=== PATIENT | female | born 1995 | race African-American/Black ===

== ENCOUNTER → 2023-02-19 | Emergency (ER) | payer SELFPAY ==
[~2023-02-19] MED LIST: CEFTRIAXONE 500 MG/VIAL ONE; dexAMETHasone 10 MG/ML VIAL ONE
[2023-02-19 01:54] LABS: Hematocrit 34.2 % (36.0-45.0); Lymphocytes % 22.9 % (15.3-44.8); MCV 89.3 fL (80-100); MPV 8.1 fL (7.6-11.3); Platelets 360 thou/uL (152-406); RBC Red Blood Cell Count 3.83 M/uL (3.86-4.86)
[2023-02-19 01:58] LABS: Albumin 2.2 g/dL (3.4-5.0); Bilirubin Total 0.2 mg/dL (0.2-1.0); Potassium 4.1 mEq/L (3.5-5.1)
[2023-02-19 02:00] LABS: SARS-CoV-2 Antigen Rapid Res Negative (Negative)
--- NOTE | 2023-02-19 02:21 | EDPHYS ---
Physician Documentation [facility] Name: Sharad Velarde Age: 27 yrs Sex: Female : 1995 Arrival Date: 02/19/2023 Time: 00:46 Bed 15 Private MD: ED Physician Levi Henriquez HPI: 02/19 01:37 This 27 yrs old Black Female presents to ER via Ambulatory with complaints of Sore sp3 Throat, fatigue. 01:37 27-year-old female with history of hypertension, type 1 diabetes, asthma, prior anemia sp3 and recent strep throat infection approximately 10 days ago now presents to the ED with continued throat pain and generalized fatigue. She denies any other symptoms including shortness of breath, lower chest pain, abdominal pain, nausea, vomiting, diarrhea, fever, known sick contacts, or any other signs or symptoms on ROS at this time. Patient's PCP is in [place] which she flies back and sees routinely.. Historical: - Allergies: 01:31 Morphine; jb4 01:31 Motrin; jb4 - PMHx: 01:31 HTN; DM; Asthma; jb4 - PSHx: 01:31 ; jb4 - Immunization history:: Adult Immunizations up to date. - Social history:: Smoking status: Patient reports the use of cigarette tobacco products, Patient uses street drugs, marijuana. ROS: 01:38 Eyes: Negative for injury, pain, redness, and discharge, Neck: Negative for injury, sp3 pain, and swelling, Cardiovascular: Negative for chest pain, palpitations, and edema, Respiratory: Negative for shortness of breath, cough, wheezing, and pleuritic chest pain, Abdomen/GI: Negative for abdominal pain, nausea, vomiting, diarrhea, and constipation, Back: Negative for injury and pain, MS/Extremity: Negative for injury and deformity, Skin: Negative for injury, rash, and discoloration, Neuro: Negative for headache, weakness, numbness, tingling, and seizure, Psych: Negative for depression, anxiety, suicide ideation, homicidal ideation, and hallucinations, Allergy/Immunology: Negative for hives, rash, and allergies, Endocrine: Negative for neck swelling, polydipsia, polyuria, polyphagia, and marked weight changes, Hematologic/Lymphatic: Negative for swollen nodes, abnormal bleeding, and unusual bruising, 01:38 All other systems are negative, Exam: 01:39 Constitutional: This is a well developed, well nourished patient who is awake, alert, sp3 and in no acute distress. Head/Face: Normocephalic, atraumatic. Eyes: Pupils equal round and reactive to light, extra-ocular motions intact. Lids and lashes normal. Conjunctiva and sclera are non-icteric and not injected. Cornea within normal limits. Periorbital areas with no swelling, redness, or edema. ENT: Nares patent. No nasal discharge, no septal abnormalities noted. External auditory canals are clear. Oropharynx with no redness, swelling, or masses, exudates, or evidence of obstruction, uvula midline. Mucous membranes moist. Neck: Trachea midline, no thyromegaly or masses palpated, and no cervical lymphadenopathy. Supple, full range of motion without nuchal rigidity, or vertebral point tenderness. No Meningismus. Chest/axilla: Normal chest wall appearance and motion. Nontender with no deformity. No lesions are appreciated. Cardiovascular: Regular rate and rhythm with a normal S1 and S2. No gallops, murmurs, or rubs. Normal PMI, no JVD. No pulse deficits. Respiratory: Lungs have equal breath sounds bilaterally, clear to auscultation and percussion. No rales, rhonchi or wheezes noted. No increased work of breathing, no retractions or nasal flaring. Abdomen/GI: Soft, non-tender, with normal bowel sounds. No distension or tympany. No guarding or rebound. No evidence of tenderness throughout. Back: No spinal tenderness. No costovertebral tenderness. Full range of motion. Skin: Warm, dry with normal turgor. Normal color with no rashes, no lesions, and no evidence of cellulitis. MS/ Extremity: Pulses equal, no cyanosis. Neurovascular intact. Full, normal range of motion. Neuro: Awake and alert, GCS 15, oriented to person, place, time, and situation. Cranial nerves II-XII grossly intact. Motor strength 5/5 in all extremities. Sensory grossly intact. Cerebellar exam normal. Normal gait. Psych: Awake, alert, with orientation to person, place and time. Behavior, mood, and affect are within normal limits. Vital Signs: 01:29 BP 148 / 100; Pulse 106; Resp 16; Temp 98.6(TE); Pulse Ox 100% on R/A; Weight 65.77 kg jb4 (R); Height 5 ft. 5 in. (R); Pain 6/10; 01:35 BP 140 / 92; Pulse 106; Resp 19; Pulse Ox 100% on R/A; Pain 6/10; tm6 02:32 BP 137 / 96; Pulse 103; Resp 20; Pulse Ox 100% ; tm6 01:29 Body Mass Index 24.13 (65.77 kg, 165.1 cm) jb4 01:29 Pain Scale: Adult jb4 01:35 Pain Scale: Adult tm6 MDM: 01:10 Patient medically screened. sp3 01:39 Data reviewed: vital signs, nurses notes, lab test result(s), radiologic studies. ED sp3 course: 27-year-old female with recurrent sore throat and generalized fatigue. Differential diagnosis includes secondary infection, viral illness, anemia, among others. Patient is in no acute distress. Heart rate initially at triage was 106 but is in the 90s now. Will obtain laboratory values, swabs and chest x-ray. Disposition pending workup and patient course with probable discharge.. 02:20 ED course: Patient's strep screen is still positive. Patient is not anemic with sp3 hemoglobin at 11.5. Will administer Rocephin 500 mg IM and Decadron 10 mg IM and discharge patient home.. 02/19 01:00 Order name: Strep; Complete Time: 02:19 sp3 02/19 01:00 Order name: Flu; Complete Time: 02:19 sp3 02/19 01:00 Order name: SARS RAPID; Complete Time: 02:19 sp3 02/19 01:15 Order name: CBC with Diff; Complete Time: 02:19 sp3 02/19 01:15 Order name: CMP; Complete Time: 02:19 sp3 02/19 01:15 Order name: IV Saline Lock; Complete Time: sp3 02/19 01:15 Order name: Labs collected and sent; Complete Time: :33 sp3 Administered Medications: 02:47 Drug: Rocephin (cefTRIAXone) IM 500 mg IM once {Note: per MD, given IVP.} Route: IM; tm6 Site: Other; 02:47 Drug: Dexamethasone IM 10 mg IM once Route: IM; Site: left deltoid; tm6 Disposition Summary: 02/19/23 02:21 Discharge Ordered Notes: Location: Home sp3 Condition: Stable sp3 Diagnosis - Strep pharyngitis sp3 Followup: sp3 - With: Private Physician - When: Upon discharge from the Emergency Department - Reason: Recheck today's complaints, Continuance of care Discharge Instructions: - Discharge Summary Sheet sp3 - Strep Throat, Adult sp3 Forms: - Medication Reconciliation Form sp3 - Thank You Letter sp3 - Antibiotic Education sp3 - Prescription Opioid Use sp3 - Patient Portal Instructions sp3 - Leadership Thank You Letter sp3 - Work release form tm6 - Family Work Release tm6 Signatures: Dispatcher [employer] Adam Guzman RN RN jb4 Levi Henriquez MD MD sp3 Viktor Fabian RN RN tm6
--- NOTE | 2023-02-19 02:21 | ER ---
Nurse's Notes [facility] Name: Sharad Velarde Age: 27 yrs Sex: Female : 1995 Arrival Date: 02/19/2023 Time: 00:46 Bed 15 Private MD: Diagnosis: Strep pharyngitis Presentation: 02/19 01:29 Chief complaint: Patient states: I have been having a soar throat for the past 2 weeks jb4 and had strep 2 weeks ago. I have been feeling lethargic for the past 3 weeks. I have been told I am anemic. I am having chest pain in my left upper chest that is a 6/10. Coronavirus screen: At this time, the client does not indicate any symptoms associated with coronavirus-19. Ebola Screen: No symptoms or risks identified at this time. Initial Sepsis Screen: Does the patient meet any 2 criteria? HR > 90 bpm. Does the patient have a suspected source of infection? No. Patient's initial sepsis screen is negative. Risk Assessment: Do you want to hurt yourself or someone else? Patient reports no desire to harm self or others. Onset of symptoms was January 29, 2023. Transition of care: patient was not received from another setting of care. 01:29 Method Of Arrival: Ambulatory jb4 01:29 Acuity: PENNY 3 jb4 Historical: - Allergies: 01:31 Morphine; jb4 01:31 Motrin; jb4 - PMHx: 01:31 HTN; DM; Asthma; jb4 - PSHx: 01:31 ; jb4 - Immunization history:: Adult Immunizations up to date. - Social history:: Smoking status: Patient reports the use of cigarette tobacco products, Patient uses street drugs, marijuana. Screenin:38 [facility] ED Fall Risk Assessment (Adult) History of falling in the last 3 months, tm6 including since admission No falls in past 3 months (0 pts). Abuse screen: Denies threats or abuse. Denies injuries from another. Nutritional screening: No deficits noted. Tuberculosis screening: No symptoms or risk factors identified. Assessment: 01:35 General: Appears in no apparent distress. Behavior is calm, cooperative. Pain: tm6 Complains of pain in chest and neck Pain currently is 6 out of 10 on a pain scale. Quality of pain is described as sharp. Neuro: Level of Consciousness is awake, alert, obeys commands, Oriented to person, place, time, situation. Cardiovascular: Capillary refill < 3 seconds Patient's skin is warm and dry. Rhythm is sinus tachycardia. Respiratory: Airway is patent Respiratory effort is even, unlabored, Breath sounds are clear. GI: Abdomen is flat, non-distended. : No signs and/or symptoms were reported regarding the genitourinary system. EENT: Throat is reddened Reports sore throat. Derm: No signs and/or symptoms reported regarding the dermatologic system. Musculoskeletal: No signs and/or symptoms reported regarding the musculoskeletal system. 02:33 Reassessment: Patient appears in no apparent distress at this time. Patient and/or tm6 family updated on plan of care and expected duration. Pain level reassessed. Patient is alert, oriented x 3, equal unlabored respirations, skin warm/dry/pink. Vital Signs: 01:29 BP 148 / 100; Pulse 106; Resp 16; Temp 98.6(TE); Pulse Ox 100% on R/A; Weight 65.77 kg jb4 (R); Height 5 ft. 5 in. (R); Pain 6/10; 01:35 BP 140 / 92; Pulse 106; Resp 19; Pulse Ox 100% on R/A; Pain 6/10; tm6 02:32 BP 137 / 96; Pulse 103; Resp 20; Pulse Ox 100% ; tm6 01:29 Body Mass Index 24.13 (65.77 kg, 165.1 cm) jb4 01:29 Pain Scale: Adult jb4 01:35 Pain Scale: Adult tm6 Vitals: 02:32 Cardiac Rhythm Assessment. 6 ED Course: 00:57 Patient arrived in ED. gm2 01:00 Levi Henriquez MD is Attending Physician. sp3 01:20 Viktor Fabian, MANISHA is Primary Nurse. tm6 01:31 Triage completed. jb4 01:31 Arm band placed on right wrist. jb4 01:33 SARS RAPID Sent. tm6 01:33 Flu Sent. tm6 01:33 Strep Sent. tm6 01:35 No provider procedures requiring assistance completed. Inserted saline lock: 20 gauge tm6 in right antecubital area, using aseptic technique. 01:38 Patient has correct armband on for positive identification. Bed in low position. Call tm6 light in reach. Side rails up X 1. Provided Education on: plan of care. Client placed on continuous cardiac and pulse oximetry monitoring. NIBP monitoring applied. fiberglass quality technician on. Door closed. Noise minimized. Lights dimmed. Warm blanket given. 02:52 IV discontinued, intact, bleeding controlled, No redness/swelling at site. Pressure tm6 dressing applied. Administered Medications: 02:47 Drug: Rocephin (cefTRIAXone) IM 500 mg IM once {Note: per MD, given IVP.} Route: IM; tm6 Site: Other; 02:47 Drug: Dexamethasone IM 10 mg IM once Route: IM; Site: left deltoid; tm6 Medication: 01:35 VIS not applicable for this client. tm6 Outcome: 02:21 Discharge ordered by . sp3 02:51 Discharged to home ambulatory, tm6 02:51 Condition: stable 02:51 Discharge instructions given to patient, Instructed on discharge instructions, Demonstrated understanding of instructions, follow-up care, 02:52 Patient left the ED. tm6 Signatures: Adam Magdaleno, RN RN jb4 Levi Henriquez MD MD sp3 Mylene Marie 2 Viktor Fabian RN RN tm6
[2023-02-19 03:21] VITALS: BP 137/96; TEMP 98.6; O2SAT 100
== END ==
LOC: ER 00:46
DX: J02.0 Streptococcal pharyngitis (principal)
CPT/HCPCS: 36415; 80053; 85025; 87081; 87804; 87811; 96372; 99285; J1100

== ENCOUNTER → 2023-03-30 | Emergency (ER) | payer BC ==
[~2023-03-30] MED LIST changes: -CEFTRIAXONE 500 MG/VIAL ONE; +IBUPROFEN 400 MG TAB ONE; +PROMETHAZINE 25 MG TABLET ONE; -dexAMETHasone 10 MG/ML VIAL ONE; +methocarbamoL 750 MG TAB ONE
[2023-03-30 03:01] LABS: Specific Gravity 1.027 (1.005-1.030)
--- NOTE | 2023-03-30 04:50 | EDPHYS ---
Physician Documentation [facility] Name: Sharad Velarde Age: 27 yrs Sex: Female : 1995 Arrival Date: 03/30/2023 Time: 01:38 Bed 11 Private MD: ED Physician Pradeep Zapata HPI: 03/30 01:45 This 27 yrs old Black Female presents to ER via Unassigned with complaints of Knee sp4 Injury. 04:41 Patient states she has bilateral knee pain starting 2 years ago when she fell down in sp4 [place] during celebration. Patient reports there is sharp episodic pain bilateral knees left more than the right. Patient is here because her job made her come into the emergency room for evaluation. . 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 - Social history:: Smoking status: Patient denies any tobacco usage or history of. - Family history:: not pertinent. ROS: 04:41 Constitutional: Negative for fever, chills, and weight loss, positive bilateral knee sp4 pain 04:41 All other systems are negative, Exam: 04:41 Constitutional: This is a well developed, well nourished patient who is awake, alert, sp4 and in no acute distress. Head/Face: Normocephalic, atraumatic. Eyes: Pupils equal round and reactive to light, extra-ocular motions intact. Lids and lashes normal. Conjunctiva and sclera are not injected. Cornea within normal limits. Periorbital areas with no swelling, redness, or edema. ENT: Nares patent. No nasal discharge, no septal abnormalities noted. Tympanic membranes are normal and external auditory canals are clear. Oropharynx with no redness, swelling, or masses, exudates, or evidence of obstruction, uvula midline. Mucous membranes moist. Neck: Trachea midline, no thyromegaly or masses palpated, and no cervical lymphadenopathy. Supple, full range of motion without nuchal rigidity, or vertebral point tenderness. Chest/axilla: Normal chest wall appearance and motion. Nontender with no deformity. No lesions are appreciated. Cardiovascular: Regular rate and rhythm with a normal S1 and S2. No gallops, murmurs, or rubs. Normal PMI, no JVD. No pulse deficits. Respiratory: Lungs have equal breath sounds bilaterally, clear to auscultation and percussion. No rales, rhonchi or wheezes noted. No increased work of breathing, no retractions or nasal flaring. Abdomen/GI: Soft, non-tender, with normal bowel sounds. No distension or tympany. No guarding or rebound. No evidence of tenderness throughout. Back: No spinal tenderness. No costovertebral tenderness. Skin: Warm, dry with normal turgor. Normal color with no rashes, no lesions, and no evidence of cellulitis. MS/ Extremity: Pulses equal, no cyanosis. Neurovascular intact. Full, normal range of motion. Neuro: Awake and alert, GCS 15, oriented to person, place, time, and situation. Cranial nerves II-XII grossly intact. Motor strength 5/5 in all extremities. Sensory grossly intact. Psych: Awake, alert, with orientation to person, place and time. Behavior, mood, and affect are within normal limits Vital Signs: 02:12 BP 175 / 115; Pulse 96; Resp 17; Pulse Ox 100% ; Weight 65.77 kg; Height 5 ft. 5 in. ; vc1 02:12 Body Mass Index 24.13 (65.77 kg, 165.1 cm) vc1 Harpreet Coma Score: 04:41 Eye Response: spontaneous(4). Motor Response: obeys commands(6). Verbal Response: sp4 oriented(5). Total: 15. MDM: 02:15 Patient medically screened. 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 Bones: No areas of acute bony injuries were demonstrated. Soft tissues: No significant soft tissue swelling. Joints: There is no joint effusion. Others: There is a excrescent heterotopic bone lesion medial posterior aspect tibial plateau with questionable superficial lucency perhaps corresponding to a osteochondroma. No periosteal reaction were seen. IMPRESSION: No acute bony injuries were demonstrated. Excrescent heterotopic bone lesion medial posterior aspect tibial plateau with questionable superficial surrounding lucency perhaps corresponding to a osteochondroma. . ED course: EXAM: Knee Left 3 View XR Left Knee 3 Views HISTORY: bilateral knee pain COMPARISON: None. TECHNIQUE: Left Knee 3 Views FINDINGS: No fracture or dislocation. No significant sclerotic/lytic bone lesion. Joint spaces unremarkable. Soft tissues unremarkable. IMPRESSION: Normal Left Knee Radiographs. . 04:41 Differential Diagnosis Remote knee injury, sprain, strain . Data reviewed: vital signs, sp4 nurses notes, radiologic studies, plain films. ED course: On the right knee x-ray patient has excrescent heterotopic bone lesion on the posterior aspect of tibial plateau with superficial surrounding lucency, possible osteochondroma. Otherwise normal bilateral knee x-rays.. 04:47 ED course: Patient stable for discharge home with advice to do no running, practice sp4 walking only, low impact exercises, as needed knee brace. . 03/30 02:15 Order name: Test, Urine; Complete Time: 05:15 sp4 03/30 02:14 Order name: Knee Left 3 View XRAY sp4 03/30 02:15 Order name: Knee Right 3 View XRAY sp4 Administered Medications: 03:25 Drug: Ibuprofen PO 800 mg PO once Route: PO; vc1 03:25 Drug: Promethazine PO 25 mg PO once Route: PO; vc1 03:26 Drug: Methocarbamol PO 1500 mg PO once Route: PO; vc1 Disposition Summary: 03/30/23 04:49 Discharge Ordered Problem: new sp4 Symptoms: have improved sp4 Condition: Stable sp4 Diagnosis - Pain in right knee sp4 - Pain in left knee sp4 - Unspecified symptoms and signs involving the musculoskeletal system sp4 - exacerbation of chronic knee pain sp4 Followup: sp4 - With: Ramin Art MD - When: 7 - 10 days - Reason: Recheck today's complaints Discharge Instructions: - Discharge Summary Sheet sp4 - How to Use a Knee Brace sp4 Forms: - Work release form vc1 - Patient Portal Instructions sp4 Prescriptions: - naproxen 500 mg Oral tablet - take 1 tablet ORAL route every 12 hours as needed for pain; 30 tablet; Refills: sp4 0, Product Selection Permitted Signatures: Dispatcher [employer] Tamara Hebert RN RN vc1 Pradeep Zapata MD MD sp4
--- NOTE | 2023-03-30 04:50 | ER ---
Nurse's Notes [facility] Name: Sharad Velarde Age: 27 yrs Sex: Female : 1995 Arrival Date: 03/30/2023 Time: 01:38 Bed 11 Private MD: Diagnosis: Pain in right knee;Pain in left knee;Unspecified symptoms and signs involving the musculoskeletal system;exacerbation of chronic knee pain Presentation: 03/30 01:57 Note Registration stated she went to her car and said she would be back. vc1 02:11 Note Patient back from car. vc1 02:12 Chief complaint: Patient states: I fell about 2 years ago on my left knee. They said vc1 xray was negative but I probably needed an MRI. It was bothering me tonight at work so they told me to come check it out. It hurts and singh. Coronavirus screen: Vaccine status: Patient reports receiving the 2nd dose of the covid vaccine. Anthony' Client denies travel out of the [place] in the last 14 days. At this time, the client does not indicate any symptoms associated with coronavirus-19. Ebola Screen: Patient negative for fever greater than or equal to 101.5 degrees Fahrenheit, and additional compatible Ebola Virus Disease symptoms Patient denies exposure to infectious person. Patient denies travel to an Ebola-affected area in the 21 days before illness onset. No symptoms or risks identified at this time. Initial Sepsis Screen: Does the patient meet any 2 criteria? No. Patient's initial sepsis screen is negative. Does the patient have a suspected source of infection? No. Patient's initial sepsis screen is negative. Risk Assessment: Do you want to hurt yourself or someone else? Patient reports no desire to harm self or others. Onset of symptoms is unknown. 02:12 Method Of Arrival: Ambulatory vc1 02:12 Acuity: PENNY 4 vc1 Triage Assessment: 02:18 General: Appears in no apparent distress. comfortable, slender, Behavior is calm, vc1 cooperative, appropriate for age. Pain: Complains of pain in left knee Pain does not radiate. Quality of pain is described as burning, Pain began years ago. Alleviated by rest, Aggravated by weight bearing. EENT: No deficits noted. No signs and/or symptoms were reported regarding the EENT system. Neuro: No deficits noted. Cardiovascular: No deficits noted. Respiratory: Airway is patent Respiratory effort is even, unlabored, Respiratory pattern is regular, symmetrical. GI: No deficits noted. No signs and/or symptoms were reported involving the gastrointestinal system. : No deficits noted. No signs and/or symptoms were reported regarding the genitourinary system. Derm: No deficits noted. No signs and/or symptoms reported regarding the dermatologic system. Musculoskeletal: Reports pain in left knee. Injury Description: fall 2 years ago. 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 - Social history:: Smoking status: Patient denies any tobacco usage or history of. - Family history:: not pertinent. Screenin:25 [facility] ED Fall Risk Assessment (Adult) History of falling in the last 3 months, vc1 including since admission No falls in past 3 months (0 pts) Confusion or Disorientation No (0 pts) Intoxicated or Sedated No (0 pts) Impaired Gait No (0 pts) Mobility Assist Device Used No (0 pt). Abuse screen: Denies threats or abuse. Nutritional screening: No deficits noted. Tuberculosis screening: No symptoms or risk factors identified. Assessment: 02:00 General: See triage assessment. vc1 05:31 Reassessment: Patient and/or family updated on plan of care and expected duration. Pain vc1 level reassessed. Patient is alert, oriented x 3, equal unlabored respirations, skin warm/dry/pink. Patient states feeling better. Patient states symptoms have improved. Reassessment:. Vital Signs: 02:12 BP 175 / 115; Pulse 96; Resp 17; Pulse Ox 100% ; Weight 65.77 kg; Height 5 ft. 5 in. ; vc1 02:12 Body Mass Index 24.13 (65.77 kg, 165.1 cm) vc1 Harpreet Coma Score: 04:41 Eye Response: spontaneous(4). Motor Response: obeys commands(6). Verbal Response: sp4 oriented(5). Total: 15. ED Course: 01:41 Patient arrived in ED. jj6 01:45 Pradeep Zapata MD is Attending Physician. sp4 01:57 Patient's name was called from ER lobby. No response. vc1 02:15 Triage completed. vc1 02:26 Arm band placed on right wrist. vc1 02:31 Patient has correct armband on for positive identification. Bed in low position. Call vc1 light in reach. Pulse ox on. NIBP on. 02:37 Knee Left 3 View XRAY In Process Unspecified. EDMS 02:37 Knee Right 3 View XRAY In Process Unspecified. EDMS 04:48 Ramin Art MD is Referral Physician. sp4 05:31 No provider procedures requiring assistance completed. Patient did not have IV access vc1 during this emergency room visit. Administered Medications: 03:25 Drug: Ibuprofen PO 800 mg PO once Route: PO; vc1 03:25 Drug: Promethazine PO 25 mg PO once Route: PO; vc1 03:26 Drug: Methocarbamol PO 1500 mg PO once Route: PO; vc1 Medication: 02:26 VIS not applicable for this client. vc1 Outcome: 04:49 Discharge ordered by . sp4 05:34 Discharged to home ambulatory, vc1 05:34 Condition: good 05:34 Discharge instructions given to patient, Instructed on discharge instructions, follow up and referral plans. medication usage, Demonstrated understanding of instructions, follow-up care, medications, Prescriptions given X 1, 05:35 Patient left the ED. vc1 Signatures: Dispatcher [employer] EDMS Karen Tri jj6 Tamara Bush RN RN vc1 Pradeep Zapata MD MD sp4
--- NOTE | 2023-03-30 12:59 | RAD REPORT ---
EXAM DESCRIPTION: RAD - Knee Right 3 View - 03/30/2023 2:35 am CLINICAL HISTORY: 27 years, Female, Right and left knee pain COMPARISON: None FINDINGS: 3 X-ray views of the right knee (frontal lateral and oblique views) were performed. Bones: No areas of acute bony injuries were demonstrated. Soft tissues: No significant soft tissue swelling. Joints: There is no joint effusion. Others: There is a excrescent heterotopic bone lesion medial posterior aspect tibial plateau with que stionable superficial lucency perhaps corresponding to a osteochondroma. No periosteal reaction wer e seen. IMPRESSION: No acute bony injuries were demonstrated. Excrescent heterotopic bone lesion medial posterior aspect tibial plateau with questionable superfici al surrounding lucency perhaps corresponding to a osteochondroma. Electronically signed by: David Ponce MD 03/30/2023 03:10 AM BRUSH WORKER Due to temporary technical issues with the PACS/Fluency reporting system, reports are being signed by the in house radiologist without review as a courtesy to ensure prompt reporting. The interpreting r adiologist is fully responsible for the content of the report.
--- NOTE | 2023-03-30 13:00 | RAD REPORT ---
EXAM DESCRIPTION: RAD - Knee Left 3 View - 03/30/2023 2:35 am CLINICAL HISTORY: Bilateral knee pain COMPARISON: None. TECHNIQUE: Left Knee 3 Views FINDINGS: No fracture or dislocation. No significant sclerotic/lytic bone lesion. Joint spaces unremarkable. Soft tissues unremarkable. IMPRESSION: Normal Left Knee Radiographs. Electronically signed by: Brian Cruz MD 03/30/2023 02:59 AM DIGITAL MARKETING PROJECT MANAGER Due to temporary technical issues with the PACS/Fluency reporting system, reports are being signed by the in house radiologist without review as a courtesy to ensure prompt reporting. The interpreting r adiologist is fully responsible for the content of the report.
[2023-03-30 13:10] VITALS: BP 175/115; O2SAT 100
== END ==
LOC: ER 01:38
DX: M25.562 Pain in left knee (principal); M25.561 Pain in right knee; R29.91 Unspecified symptoms and signs involving the musculoskeletal system; E11.9 Type 2 diabetes mellitus without complications; I10 Essential (primary) hypertension; Z79.4 Long term (current) use of insulin; Z88.5 Allergy status to narcotic agent; Z88.6 Allergy status to analgesic agent
CPT/HCPCS: 81025; Q0169

== ENCOUNTER 2023-06-24 22:09 | Emergency (ER) | payer BC ==
[2023-06-24] MEDS ORDERED: NA CHLORIDE 0.9% 500 ML ONE (22:37)
[2023-06-24 23:03] LABS: Absolute Basophils 0.1 K/uL (0-0.5); Absolute Lymphocytes (CBC) 1.7 K/uL (0.7-4.9); Absolute Monocytes 0.2 K/uL (0.1-1.3); Absolute Neutrophil 3.5 K/uL (1.8-8.0); Basophils % 1.8 % (0-1.3); Eosinophils % 0.9 % (0-4.4); Hematocrit 37.8 % (36.0-45.0); MCH 29.9 pg (27.0-35.0); MCHC 34.4 g/dL (32.0-36.0); MPV 8.4 fL (7.6-11.3); Monocytes % 3.3 % (3.3-12.3); Nucleated Red Blood Cells % 0.1 % (0-0); Platelets 360 thou/uL (152-406); RBC Red Blood Cell Count 4.34 M/uL (3.86-4.86); Red Cell Distribution Width 12.7 % (12.1-15.2)
[2023-06-24 23:23] LABS: ALT/SGPT 16 U/L (13-56); AST/SGOT 7 U/L (15-37); Albumin 2.7 g/dL (3.4-5.0); Albumin/Globulin Ratio 0.6 (1.1-1.8); Alkaline Phosphatase 94 U/L (45-117); Anion Gap 7.7 mEq/L (5.0-15.0); BUN Blood Urea Nitrogen 19 mg/dL (7-18); Bicarbonate 27 mEq/L (21-32); Bilirubin Total 0.4 mg/dL (0.2-1.0); Globulin 4.3 g/dL (2.3-3.5); Glomerular Filtration Rate 60 ml/min (=/>90); Glucose Level 321 mg/dL (74-106); Potassium 3.7 mEq/L (3.5-5.1); Sodium Level 133 mEq/L (136-145)
[2023-06-24 23:28] LABS: Troponin High Sensitivity < 3.0 pg/mL (<58.9)
[2023-06-24 23:45] LABS: Specific Gravity > 1.030 (1.005-1.030); Sqamous Epithelial <5 /HPF (None Seen); Urine Bacteria None Seen /HPF (<20); Urine Bilirubin NEGATIVE (Negative); Urine Blood 3+ (Negative); Urine Clarity Clear (Clear); Urine Color Light-Yellow (Yellow); Urine Culture Reflex Order NOT NEEDED; Urine Glucose 4+ (Over) (Negative); Urine Ketones NEGATIVE (Negative); Urine Microscopic Reflex YN ORDER UMIC; Urine Mucus Slight /HPF (None Seen); Urine Nitrite NEGATIVE (Negative); Urine Protein 2+ (Negative); Urine RBC 21-50 /HPF (None Seen); Urine Urobilinogen Normal (Normal); Urine WBC <5 /HPF (<5)
[2023-06-25] MEDS ORDERED: AMLODIPINE 5 MG TAB ONE (00:23)
[2023-06-25] MEDS ORDERED: ASPIRIN 81 MG CHEWABLE TABLET ONE (00:23)
[2023-06-25] MEDS ORDERED: hydroCHLOROthiazide 25 MG TAB ONE (00:23)
--- NOTE | 2023-06-25 00:25 | ER ---
Nurse's Notes [facility] Name: Sharad Velarde Age: 27 yrs Sex: Female : 1995 Arrival Date: 06/24/2023 Time: 22:09 Bed 8 Private MD: Diagnosis: Essential (primary) hypertension;Type 2 diabetes mellitus with hyperglycemia Presentation: 06/23 22:25 Chief complaint: Patient states: Pt c/o headache and lightheadedness today. Pt states tl4 she is out of her HTN meds, last dose yesterday. Coronavirus screen: At this time, the client does not indicate any symptoms associated with coronavirus-19. Ebola Screen: No symptoms or risks identified at this time. Initial Sepsis Screen: Does the patient meet any 2 criteria? No. Patient's initial sepsis screen is negative. Does the patient have a suspected source of infection? No. Patient's initial sepsis screen is negative. Risk Assessment: Do you want to hurt yourself or someone else? Patient reports no desire to harm self or others. Onset of symptoms was June 24, 2023. 22:25 Method Of Arrival: Ambulatory tl4 22:25 Acuity: PENNY 3 tl4 Triage Assessment: 22:30 General: Appears in no apparent distress. Behavior is calm, cooperative. Pain: tl4 Complains of pain in head. EENT: No signs and/or symptoms were reported regarding the EENT system. Neuro: Level of Consciousness is awake, alert, obeys commands, Oriented to person, place, time, situation, Moves all extremities. Full function Gait is steady, Speech is normal, Reports dizziness, headache. Cardiovascular: Capillary refill < 3 seconds Patient's skin is warm and dry. Respiratory: Airway is patent Respiratory effort is even, unlabored, Respiratory pattern is regular, symmetrical. GI: No signs and/or symptoms were reported involving the gastrointestinal system. : No signs and/or symptoms were reported regarding the genitourinary system. Derm: No signs and/or symptoms reported regarding the dermatologic system. Musculoskeletal: No signs and/or symptoms reported regarding the musculoskeletal system. Historical: - Allergies: 22:29 Morphine (Anaphylaxis); tl4 22:29 Motrin (Hives); tl4 - Home Meds: 22:29 Novolog Sub-Q [Active]; Toujeo SoloStar U-300 Insulin subcutaneous [Active]; amlodipine tl4 5 mg tablet [Active]; lisinopril 10 mg Oral tablet [Active]; - PMHx: 22:29 Asthma; DM; Type 1; HTN; tl4 - PSHx: 22:29 ; tl4 - Immunization history:: Adult Immunizations unknown. - Infectious Disease History:: Denies. - Social history:: Smoking status: Patient denies any tobacco usage or history of. Screenin/27 00:17 [facility] ED Fall Risk Assessment (Adult) History of falling in the last 3 months, jb4 including since admission No falls in past 3 months (0 pts) Confusion or Disorientation No (0 pts) Intoxicated or Sedated No (0 pts) Impaired Gait No (0 pts) Mobility Assist Device Used No (0 pt) Altered Elimination No (0 pt) Score/Fall Risk Level 0 - 2 = Low Risk Oriented to surroundings, Maintained a safe environment. Abuse screen: Denies threats or abuse. Nutritional screening: No deficits noted. Tuberculosis screening: No symptoms or risk factors identified. Assessment: 06/23 23:00 General: Appears in no apparent distress. comfortable, Behavior is calm, cooperative, jb4 appropriate for age. Pain: Denies pain. Neuro: Level of Consciousness is awake, alert, obeys commands, Oriented to person, place, time, situation. Cardiovascular: Patient's skin is warm and dry. Respiratory: Airway is patent Respiratory effort is even, unlabored, Respiratory pattern is regular, symmetrical. GI: No signs and/or symptoms were reported involving the gastrointestinal system. : No signs and/or symptoms were reported regarding the genitourinary system. EENT: No signs and/or symptoms were reported regarding the EENT system. Derm: Skin is intact, Skin is pink, warm \T\ dry. Musculoskeletal: Circulation, motion, and sensation intact. Range of motion: intact in all extremities. 06/24 00:17 Reassessment: Patient appears in no apparent distress at this time. Patient and/or jb4 family updated on plan of care and expected duration. Pain level reassessed. Patient is alert, oriented x 3, equal unlabored respirations, skin warm/dry/pink. Vital Signs: 06/23 22:25 BP 166 / 96; Pulse 107; Resp 16; Temp 99(O); Pulse Ox 97% on R/A; Weight 70.76 kg; tl4 Height 5 ft. 5 in. ; Pain 6/10; 06/24 00:00 BP 162 / 104; Pulse 95; Resp 17; Pulse Ox 100% on R/A; jb4 06/23 22:25 Body Mass Index 25.96 (70.76 kg, 165.1 cm) tl4 06/23 22:25 Pain Scale: Adult tl4 ED Course: 06/23 22:11 Patient arrived in ED. im 22:15 Calvin Becerra MD is Attending Physician. tonia 22:29 Triage completed. tl4 22:31 Arm band placed on right wrist. tl4 22:35 Flash Beyer, MANISHA is Primary Nurse. rv 22:40 Patient has correct armband on for positive identification. Placed in gown. Bed in low tl4 position. Call light in reach. Side rails up X 1. Provided Education on: ED process. Client placed on continuous cardiac and pulse oximetry monitoring. NIBP monitoring applied. conveyor monitor on. Door closed. Noise minimized. Moved to private room. Warm blanket given. 22:45 Initial lab(s) drawn, by me, sent to lab. Inserted saline lock: 18 gauge in right jb4 antecubital area, using aseptic technique. Blood collected. 22:50 CBC with Diff Sent. jb4 22:50 Comprehensive Metabolic Panel Sent. jb4 22:50 Troponin High Sensitivity Sent. jb4 23:35 Urinalysis w/ reflexes Sent. jb4 23:35 PREGU Sent. jb4 06/24 00:17 Chest Single View XRAY In Process Unspecified. EDMS 00:43 No provider procedures requiring assistance completed. IV discontinued, intact, jb4 bleeding controlled, No redness/swelling at site. Pressure dressing applied. Administered Medications: 06/23 22:50 Drug: NS 0.9% IV 500 ml IV at bolus once Route: IV; Rate: bolus; Site: right jb4 antecubital; 06/24 00:28 Not Given (BGL 1588): insulin regular human5 units IVP once 4 00:28 Not Given (BGL 1588): insulin regular human5 units Sub-Q once jb4 00:28 Drug: Hydrochlorothiazide PO 12.5 mg PO once Route: PO; jb4 00:28 Drug: Norvasc PO 5 mg PO once Route: PO; jb4 00:28 Drug: Aspirin PO Chewable Tablet 81 mg PO once Route: PO; jb4 Medication: 00:17 VIS not applicable for this client. jb4 Outcome: 00:24 Discharge ordered by . tonia 00:43 Discharged to home ambulatory, jb4 00:43 Condition: stable 00:43 Discharge instructions given to patient, Instructed on discharge instructions, follow up and referral plans. medication usage, Demonstrated understanding of instructions, follow-up care, medications, Prescriptions given X 4, 00:43 Patient left the ED. jb4 Signatures: Dispatcher [employer] EDMS Calvin Becerra MD MD cha Bryson, James RN RN jb4 Flash Beyer RN RN Jennyfer Harrell Toni RN RN tl4
--- NOTE | 2023-06-25 00:25 | EDPHYS ---
Physician Documentation [facility] Name: Sharad Velrade Age: 27 yrs Sex: Female : 1995 Arrival Date: 06/24/2023 Time: 22:09 Bed 8 Private MD: YAKOV Physician Calvin Beecrra HPI: 06/24 00:09 This 27 yrs old Black Female presents to ER via Ambulatory with complaints of High tonia Blood Pressure. 00:09 The patient has elevated blood pressure and discovered this at home. Onset: The tonia symptoms/episode began/occurred 2 day(s) ago. Modifying factors: The symptoms are aggravated by activity, The symptoms are alleviated by remaining still. Historical: - Allergies: 06/23 22:29 Morphine (Anaphylaxis); tl4 22:29 Motrin (Hives); tl4 - Home Meds: 22:29 Novolog Sub-Q [Active]; Toujeo SoloStar U-300 Insulin subcutaneous [Active]; amlodipine tl4 5 mg tablet [Active]; lisinopril 10 mg Oral tablet [Active]; - PMHx: 22:29 Asthma; DM; Type 1; HTN; tl4 - PSHx: 22:29 ; tl4 - Immunization history:: Adult Immunizations unknown. - Infectious Disease History:: Denies. - Social history:: Smoking status: Patient denies any tobacco usage or history of. ROS: 06/24 00:14 Constitutional: Negative for fever, chills, and weight loss, Eyes: Negative for injury, tonia pain, redness, and discharge, ENT: Negative for injury, pain, and discharge, Neck: Negative for injury, pain, and swelling, Respiratory: Negative for shortness of breath, cough, wheezing, and pleuritic chest pain, Abdomen/GI: Negative for abdominal pain, nausea, vomiting, diarrhea, and constipation, Back: Negative for injury and pain, : Negative for injury, bleeding, discharge, and swelling, MS/Extremity: Negative for injury and deformity, Skin: Negative for injury, rash, and discoloration, Neuro: Negative for headache, weakness, numbness, tingling, and seizure, Psych: Negative for depression, anxiety, suicide ideation, homicidal ideation, and hallucinations, Allergy/Immunology: Negative for hives, rash, and allergies, Endocrine: Negative for neck swelling, polydipsia, polyuria, polyphagia, and marked weight changes, Hematologic/Lymphatic: Negative for swollen nodes, abnormal bleeding, and unusual bruising, Cardiovascular: Positive for chest pain, palpitations, Exam: 00:14 Constitutional: This is a well developed, well nourished patient who is awake, alert, tonia and in no acute distress. Head/Face: Normocephalic, atraumatic. Eyes: Pupils equal round and reactive to light, extra-ocular motions intact. Lids and lashes normal. Conjunctiva and sclera are non-icteric and not injected. Cornea within normal limits. Periorbital areas with no swelling, redness, or edema. ENT: Nares patent. No nasal discharge, no septal abnormalities noted. Tympanic membranes are normal and external auditory canals are clear. Oropharynx with no redness, swelling, or masses, exudates, or evidence of obstruction, uvula midline. Mucous membranes moist. Neck: Trachea midline, no thyromegaly or masses palpated, and no cervical lymphadenopathy. Supple, full range of motion without nuchal rigidity, or vertebral point tenderness. No Meningismus. Chest/axilla: Normal chest wall appearance and motion. Nontender with no deformity. No lesions are appreciated. Cardiovascular: Regular rate and rhythm with a normal S1 and S2. No gallops, murmurs, or rubs. Normal PMI, no JVD. No pulse deficits. Respiratory: Lungs have equal breath sounds bilaterally, clear to auscultation and percussion. No rales, rhonchi or wheezes noted. No increased work of breathing, no retractions or nasal flaring. Abdomen/GI: Soft, non-tender, with normal bowel sounds. No distension or tympany. No guarding or rebound. No evidence of tenderness throughout. Back: No spinal tenderness. No costovertebral tenderness. Full range of motion. Pelvic Exam: Normal external genitalia. Speculum exam with closed cervical os, no discharge or bleeding noted. Bimanual exam with normal adnexa, no adnexal or cervical motion tenderness. Normal uterus. Skin: Warm, dry with normal turgor. Normal color with no rashes, no lesions, and no evidence of cellulitis. MS/ Extremity: Pulses equal, no cyanosis. Neurovascular intact. Full, normal range of motion. Neuro: Awake and alert, GCS 15, oriented to person, place, time, and situation. Cranial nerves II-XII grossly intact. Motor strength 5/5 in all extremities. Sensory grossly intact. Cerebellar exam normal. Normal gait. Psych: Awake, alert, with orientation to person, place and time. Behavior, mood, and affect are within normal limits. 00:14 ECG was reviewed by the Attending Physician. 00:23 Musculoskeletal/extremity: DVT Exam: No signs of deep vein thrombosis. no pain, no tonia swelling, no tenderness, negative Homans' sign noted on exam, no appreciated bluish discoloration, no erythema, no increased warmth, Vital Signs: 06/23 22:25 BP 166 / 96; Pulse 107; Resp 16; Temp 99(O); Pulse Ox 97% on R/A; Weight 70.76 kg; tl4 Height 5 ft. 5 in. ; Pain 6/10; 06/24 00:00 BP 162 / 104; Pulse 95; Resp 17; Pulse Ox 100% on R/A; jb4 06/23 22:25 Body Mass Index 25.96 (70.76 kg, 165.1 cm) tl4 06/23 22:25 Pain Scale: Adult tl4 MDM: 06/23 22:39 Patient medically screened. [facility] 06/24 00:15 Differential diagnosis: hypertensive crisis, Malignant HTN. Data reviewed: vital signs, [facility] nurses notes, lab test result(s), EKG, radiologic studies, plain films. Consideration of Admission/Observation Escalation of care including admission/observation considered. I considered the following discharge prescriptions or medication management in the emergency department Medications were administered in the Emergency Department. See MAR. Independent interpretation of the following test(s) in the Emergency Department EKG: See my EKG interpretation above. Test considered but Not performed: CT: no ct head. Historians other than the Patient: pt well informed. Care significantly affected by the following chronic conditions: Diabetes, Hypertension, asthma. Counseling: I had a detailed discussion with the patient and/or guardian regarding the historical points, exam findings, and any diagnostic results supporting the discharge/admit diagnosis, the presence of at least one elevated blood pressure reading (>120/80) during this emergency department visit, lab results. 06/23 22:19 Order name: CBC with Diff; Complete Time: 00:00 [facility] 06/23 22:19 Order name: Comprehensive Metabolic Panel; Complete Time: 00:00 [facility] 06/23 22:19 Order name: Troponin High Sensitivity; Complete Time: 00:00 [facility] 06/23 22:19 Order name: Urinalysis w/ reflexes; Complete Time: 00:00 [facility] 06/23 22:19 Order name: PREGU; Complete Time: 00:00 [facility] 06/24 00:34 Order name: Glucose, Ancillary Testing EDMS 06/24 00:03 Order name: Chest Single View XRAY [facility] 06/23 22:19 Order name: EKG - Nurse/Tech; Complete Time: 22:49 [facility] EC:14 Rate is 99 beats/min. Rhythm is regular. QRS [place] is Normal. MI interval is normal. QRS tonia interval is normal. QT interval is normal. No Q waves. T waves are Normal. No ST changes noted. Clinical impression: NSR w/ Non-specific ST/T Changes and No evidence of ischemia. Interpreted by me. Reviewed by me. Administered Medications: 06/23 22:50 Drug: NS 0.9% IV 500 ml IV at bolus once Route: IV; Rate: bolus; Site: right jb4 antecubital; 06/24 00:28 Not Given (BGL 1588): insulin regular human5 units IVP once jb4 00:28 Not Given (BGL 1588): insulin regular human5 units Sub-Q once 4 00:28 Drug: Hydrochlorothiazide PO 12.5 mg PO once Route: PO; jb4 00:28 Drug: Norvasc PO 5 mg PO once Route: PO; jb4 00:28 Drug: Aspirin PO Chewable Tablet 81 mg PO once Route: PO; jb4 Disposition Summary: 06/25/23 00:24 Discharge Ordered Notes: Location: Home tonia Problem: new tonia Symptoms: have improved tonia Condition: Stable tonia Diagnosis - Essential (primary) hypertension tonia - Type 2 diabetes mellitus with hyperglycemia tonia Followup: tonia - With: Private Physician - When: 2 - 3 days - Reason: Recheck today's complaints, Continuance of care, Re-evaluation by your physician Discharge Instructions: - Discharge Summary Sheet tonia - Type 2 Diabetes Mellitus, Diagnosis, Adult tonia - Hyperglycemia tonia - Hypertension, Adult tonia - Hypertension, Adult, [id number] tonia - Diabetes Mellitus and Nutrition, Adult tonia - How to Take Your Blood Pressure, [id number]-[id number] tonia - Aspirin and Your Heart tonia - Managing Your Hypertension tonia Forms: - Medication Reconciliation Form tonia - Antibiotic Education tonia - Prescription Opioid Use tonia - Patient Portal Instructions tonia - Leadership Thank You Letter tonia Prescriptions: - hydrochlorothiazide 12.5 mg Oral capsule - take 1 capsule ORAL route every morning; 30 capsule; Refills: 0, Product tonia Selection Permitted - Norvasc 10 mg Oral Tablet - take 1 tablet ORAL route once daily; 30 tablet; Refills: 0, Product Selection tonia Permitted - Potassium Chloride 20 meq Oral Packet - take 1 packet ORAL route once daily 1 packet in 6 (six) ounces of water or tonia juice; Take after meal; 14 packet; Refills: 0, Product Selection Permitted - Lisinopril 10 mg Oral Tablet - take 1 tablet ORAL route once daily; 20 tablet; Refills: 0, Product Selection tonia Permitted Signatures: Dispatcher [employer] EDCalvin Mckay MD MD cha Bryson, James, RN RN jb4 Alex Ch RN RN tl4 Corrections: (The following items were deleted from the chart) 06/23 22:19 22:19 CBC+H.LAB.BRZ ordered. EDMS EDMS 22:19 22:19 COMPREHENSIVE METABOLIC PANEL+C.LAB.BRZ ordered. EDMS EDMS 22:19 22:19 Troponin High Sensitivity+C.LAB.BRZ ordered. EDMS EDMS 22:19 22:19 Urinalysis+U.LAB.BRZ ordered. EDMS EDMS 22:19 22:19 Test, Urine+UC.LAB.BRZ ordered. EDMS EDMS
[2023-06-25 01:12] VITALS: BP 162/104; TEMP 99; O2SAT 100
--- NOTE | 2023-06-26 12:31 | RAD REPORT ---
EXAM DESCRIPTION: Chest Single View CLINICAL HISTORY: CHEST PAIN COMPARISON: None FINDINGS: Cardiac silhouette is within normal limits. Decreased lung volumes could be secondary to u nderinflation. EKG leads project over the chest. There is no focal parenchymal or pleural disease. Th ere is no acute osseous process visualized. IMPRESSION: No evidence of acute cardiopulmonary disease. Electronically signed by: Nik Benson MD 06/25/2023 12:37 AM CDT Due to temporary technical issues with the PACS/Fluency reporting system, reports are being signed by the in house radiologists without review as a courtesy to insure prompt reporting. The interpreting radiologist is fully responsible for the content of the report.
--- NOTE | 2023-06-27 13:02 | EKG ---
Test Date: 2023-06-24 Test Time: 22:47:25 Geophysical Engineer: TL MEASUREMENT RESULTS: Intervals: Rate: 99 ME: 150 QRSD: 82 QT: 342 QTc: 438 Corrigan: P: 42 ME: 150 QRS: 45 T: 21 INTERPRETIVE STATEMENTS: Normal sinus rhythm Normal ECG No previous ECG available for comparison Electronically Signed On 06-27-23 12:56:04 CDT by Oleksandr Briceno
== END 2023-06-25 00:43 | disposition home or self-care (01) ==
LOC: ER 22:09
DX: I10 Essential (primary) hypertension (principal); E11.65 Type 2 diabetes mellitus with hyperglycemia; Z79.4 Long term (current) use of insulin; Z88.5 Allergy status to narcotic agent; Z88.6 Allergy status to analgesic agent
CPT/HCPCS: 93005; 85025; 81001; 36415; 81025; 82947; 84484; 80053; 71045; J7040

== ENCOUNTER 2023-07-28 21:18 | Emergency (ER) | payer BC ==
--- NOTE | 2023-07-28 21:59 | ER ---
Nurse's Notes [facility] Name: Sharad Velarde Age: 27 yrs Sex: Female : 1995 Arrival Date: 07/28/2023 Time: 21:18 Bed DX3 Private MD: Diagnosis: Type 1 diabetes mellitus with hyperglycemia;Encounter for medication refill Presentation: 07/27 21:54 Chief complaint: Patient states: Needs her insulin refilled. Pt states that her sugars cm10 have been higher than normal when she started this new vial. Coronavirus screen: Client denies travel out of the [place] in the last 14 days. At this time, the client does not indicate any symptoms associated with coronavirus-19. Ebola Screen: Patient denies travel to an Ebola-affected area in the 21 days before illness onset. No symptoms or risks identified at this time. Initial Sepsis Screen: Does the patient meet any 2 criteria? HR > 90 bpm. Does the patient have a suspected source of infection? No. Patient's initial sepsis screen is negative. Risk Assessment: Do you want to hurt yourself or someone else? Patient reports no desire to harm self or others. Onset of symptoms was July 28, 2023. 21:54 Method Of Arrival: Ambulatory cm10 21:54 Acuity: PENNY 4 cm10 Triage Assessment: 21:55 General: Appears in no apparent distress. comfortable, Behavior is calm, cooperative. cm10 Neuro: No deficits noted. Level of Consciousness is awake, alert, obeys commands, Oriented to person, place, time, situation, Appropriate for age. Respiratory: No deficits noted. Airway is patent Respiratory effort is even, unlabored, Respiratory pattern is regular, symmetrical. Historical: - Allergies: 21:55 Morphine (Anaphylaxis); cm10 21:55 Motrin (Hives); cm10 - PMHx: 21:55 Asthma; DM; Type 1; HTN; cm10 - PSHx: 21:55 ; cm10 - Immunization history:: Adult Immunizations up to date. - Infectious Disease History:: Denies. - Social history:: Smoking status: Patient denies any tobacco usage or history of. Screenin:57 [facility] ED Fall Risk Assessment (Adult) History of falling in the last 3 months, vc1 including since admission No falls in past 3 months (0 pts) Confusion or Disorientation No (0 pts) Intoxicated or Sedated No (0 pts) Impaired Gait No (0 pts) Mobility Assist Device Used No (0 pt) Altered Elimination No (0 pt) Score/Fall Risk Level 0 - 2 = Low Risk Oriented to surroundings, Maintained a safe environment, Educated pt \T\ family on fall prevention, incl call for assistance when getting out of bed. Abuse screen: Denies threats or abuse. Nutritional screening: No deficits noted. Tuberculosis screening: No symptoms or risk factors identified. Vital Signs: 21:54 BP 148 / 100; Pulse 100; Resp 16; Temp 97.4; Pulse Ox 100% ; Weight 70.31 kg; Height 5 cm10 ft. 5 in. ; Pain 0/10; 21:54 Body Mass Index 25.79 (70.31 kg, 165.1 cm) cm10 21:54 Pain Scale: Adult cm10 ED Course: 21:19 Patient arrived in ED. im 21:49 Letitia Chaudhari PA-C is PHCP. sb4 21:49 Pradeep Zapata MD is Attending Physician. sb4 21:55 Triage completed. cm10 21:56 Arm band placed on Patient placed in waiting room. cm10 22:57 Tamara Bush, MANISHA is Primary Nurse. vc1 22:57 No provider procedures requiring assistance completed. Patient did not have IV access vc1 during this emergency room visit. Administered Medications: 22:31 Drug: Insulin Glargine Sub-Q 25 units Sub-Q once {Co-Signature: cm10 (regan Li RN).} Route: Sub-Q; Site: right lower abdomen; 22:31 Drug: Ondansetron Oral Disintegrating Tablet Oral Disintegrating Tablet 4 mg PO once vc1 Route: PO; Medication: 22:57 VIS not applicable for this client. vc1 Point of Care Testing: Blood Glucose: 21:56 Blood Glucose: 305 mg/dL; cm10 Ranges: Outcome: 21:58 Discharge ordered by . sb4 22:54 Discharge ordered by MD. sb4 22:57 Discharged to home ambulatory, vc1 22:57 Condition: good 22:57 Discharge instructions given to patient, Instructed on discharge instructions, follow up and referral plans. medication usage, Demonstrated understanding of instructions, follow-up care, medications, Prescriptions given X 1, 22:57 Patient left the ED. vc1 Signatures: Tamara Bush RN RN vc1 Letitia Chaudhari PA-C PA-C sb4 Jennyfer Valles Clarissa, RN RN cm10 April Li RN cm10
--- NOTE | 2023-07-28 21:59 | EDPHYS ---
Physician Documentation [facility] Name: Sharad Velarde Age: 27 yrs Sex: Female : 1995 Arrival Date: 07/28/2023 Time: 21:18 Bed DX3 Private MD: ED Physician Pradeep Zapata HPI: 07/27 22:32 This 27 yrs old Black Female presents to ER via Ambulatory with complaints of sb4 Medication Refill - for diabetes. 22:32 The patient presents to the emergency department requesting refill(s) for: Insulin. The sb4 patient chronically suffers from diabetes. patient believes her insulin is or damaged somehow because it is not controlling her blood sugar like it normally does. Historical: - Allergies: 21:55 Morphine (Anaphylaxis); cm10 21:55 Motrin (Hives); cm10 - PMHx: 21:55 Asthma; DM; Type 1; HTN; cm10 - PSHx: 21:55 ; cm10 - Immunization history:: Adult Immunizations up to date. - Infectious Disease History:: Denies. - Social history:: Smoking status: Patient denies any tobacco usage or history of. ROS: 22:32 Constitutional: Negative for fever, chills, and weight loss, sb4 22:32 Abdomen/GI: Positive for nausea, 22:32 All other systems are negative, Exam: 22:32 Constitutional: This is a well developed, well nourished patient who is awake, alert, sb4 and in no acute distress. Head/Face: Normocephalic, atraumatic. Eyes: Extra-ocular motions intact. Periorbital areas with no swelling, redness, or edema. ENT: Mucous membranes moist. Vital Signs: 21:54 BP 148 / 100; Pulse 100; Resp 16; Temp 97.4; Pulse Ox 100% ; Weight 70.31 kg; Height 5 cm10 ft. 5 in. ; Pain 0/10; 21:54 Body Mass Index 25.79 (70.31 kg, 165.1 cm) cm10 21:54 Pain Scale: Adult cm10 MDM: 21:56 Patient medically screened. sb4 22:53 Data reviewed: vital signs, nurses notes, lab test result(s), and as a result, I will sb4 discharge patient. Counseling: I had a detailed discussion with the patient and/or guardian regarding the historical points, exam findings, and any diagnostic results supporting the discharge/admit diagnosis, radiology results, the need for outpatient follow up, for definitive care, to return to the emergency department if symptoms worsen or persist or if there are any questions or concerns that arise at home. 07/27 22:07 Order name: Glucose, Ancillary Testing; Complete Time: 22:09 EDMS 07/27 22:32 Order name: UAM; Complete Time: 22:53 sb4 07/27 22:38 Order name: Test, Urine; Complete Time: 22:53 sb4 07/27 21:53 Order name: Accucheck Blood Glucose; Complete Time: 21:58 sb4 Administered Medications: 22:31 Drug: Insulin Glargine Sub-Q 25 units Sub-Q once {Co-Signature: cm10 (vc Guillermo1 April DYER).} Route: Sub-Q; Site: right lower abdomen; 22:31 Drug: Ondansetron Oral Disintegrating Tablet Oral Disintegrating Tablet 4 mg PO once vc1 Route: PO; Point of Care Testing: Blood Glucose: 21:56 Blood Glucose: 305 mg/dL; cm10 Ranges: Critical Glucose Levels:Adult <50 mg/dl or >400 mg/dl <40 mg/dl or >180 mg/dl Disposition: 07/28 03:03 Co-signature as Attending Physician, Pradeep Zapata MD I agree with the assessment sp4 and plan of care. I reviewed the patient's care provided by the Advanced Practice Provider and agree with the diagnosis and treatment plan. Disposition Summary: 07/28/23 22:54 Discharge Ordered Notes: Location: Home(07/28/23 22:54) sb4 Problem: new(07/28/23 22:54) sb4 Symptoms: have improved(07/28/23 22:54) sb4 Condition: Stable(07/28/23 22:54) sb4 Diagnosis - Type 1 diabetes mellitus with hyperglycemia(07/28/23 22:54) sb4 - Encounter for medication refill sb4 Followup: sb4 - With: Emergency Department - When: As needed - Reason: Trouble breathing, Worsening of condition Forms: - Medication Reconciliation Form sb4 - Antibiotic Education sb4 - Prescription Opioid Use sb4 - Patient Portal Instructions sb4 - Leadership Thank You Letter sb4 Signatures: Dispatcher [employer] Tamara Hebert RN RN vc1 Letitia Chaudhari PA-C PA-C sb4 Pradeep Zapata MD MD sp4 April Li RN RN cm10 April Li RN cm10 Corrections: (The following items were deleted from the chart) 07/27 22:32 21:58 Home sb4 sb4 22:32 21:58 new sb4 sb4 22:32 21:58 have improved sb4 sb4 22:32 21:58 Stable sb4 sb4 22:32 21:58 Type 1 diabetes mellitus with hyperglycemia sb4 sb4 22:32 21:59 Encounter for medication refill sb4 sb4
[2023-07-28] MEDS ORDERED: ONDANSETRON 4 MG (ODT) TAB ONE (22:26)
[2023-07-28] MEDS ORDERED: INSULIN GLARGINE 100 UNIT/ML SQ ONE (22:27)
[2023-07-28 22:52] LABS: Specific Gravity 12.029 (1.005-1.030)
[2023-07-28 22:53] LABS: Specific Gravity 1.029 (1.005-1.030); Sqamous Epithelial <5 /HPF (None Seen); Urine Bacteria None Seen /HPF (<20); Urine Bilirubin NEGATIVE (Negative); Urine Blood 1+ (Negative); Urine Clarity Clear (Clear); Urine Color Colorless (Yellow); Urine Crystals Unidentified Few /HPF (None Seen); Urine Culture Reflex Order NOT NEEDED; Urine Glucose 4+ (Over) (Negative); Urine Ketones NEGATIVE (Negative); Urine Micro Reflex YN NO BILL MICROSCOPIC; Urine Nitrite NEGATIVE (Negative); Urine Protein 2+ (Negative); Urine Urobilinogen Normal (Normal); Urine WBC <5 /HPF (<5); Urine pH 6.5 (5.0-7.0)
[2023-07-28 23:24] VITALS: BP 148/100; TEMP 97.4; O2SAT 100
== END 2023-07-28 22:57 | disposition home or self-care (01) ==
LOC: ER 21:18
DX: E10.65 Type 1 diabetes mellitus with hyperglycemia (principal); Z76.0 Encounter for issue of repeat prescription
CPT/HCPCS: 81001; 81025; 82947; 96372; 99283; Q0162

== ENCOUNTER 2023-08-15 10:58 | Emergency (ER) | payer BC ==
[2023-08-15 11:46] LABS: Specific Gravity 1.026 (1.005-1.030); Transitional Epithelial <5 /HPF (None Seen); Urine Bacteria None Seen /HPF (<20); Urine Bilirubin NEGATIVE (Negative); Urine Blood 1+ (Negative); Urine Clarity Extremely Turbid (Clear); Urine Color Light-Yellow (Yellow); Urine Culture Reflex Order NOT NEEDED; Urine Glucose 3+ (Negative); Urine Ketones NEGATIVE (Negative); Urine Microscopic Reflex YN ORDER UMIC; Urine Mucus Slight /HPF (None Seen); Urine Nitrite NEGATIVE (Negative); Urine Protein 3+ (Negative); Urine Urobilinogen 1+ (Normal); Urine WBC <5 /HPF (<5)
[2023-08-15 12:01] LABS: Absolute Lymphocytes (CBC) 1.6 K/uL (0.7-4.9); Absolute Monocytes 0.5 K/uL (0.1-1.3); Absolute Neutrophil 8.2 K/uL (1.8-8.0); Basophils % 0.4 % (0-1.3); Eosinophils % 0.5 % (0-4.4); Hematocrit 32.7 % (36.0-45.0); Hemoglobin 10.8 g/dL (12.0-15.0); Lymphocytes % 15.7 % (15.3-44.8); MCH 28.8 pg (27.0-35.0); MCV 87.3 fL (80-100); MPV 8.1 fL (7.6-11.3); Monocytes % 5.1 % (3.3-12.3); Neutrophils % 78.3 % (41.7-73.7); Platelets 363 thou/uL (152-406); RBC Red Blood Cell Count 3.75 M/uL (3.86-4.86); Red Cell Distribution Width 12.5 % (12.1-15.2)
[2023-08-15 12:06] LABS: PT Prothrombin Time 11.2 SECONDS (9.5-12.5); PTT, Activated Partial Thromb 31.2 SECONDS (24.3-36.9); Protime INR 1.02
[2023-08-15 12:17] LABS: Albumin 2.1 g/dL (3.4-5.0); Albumin/Globulin Ratio 0.4 (1.1-1.8); Anion Gap 10.7 mEq/L (5.0-15.0); Bilirubin Total 0.4 mg/dL (0.2-1.0); Globulin 4.7 g/dL (2.3-3.5); Potassium 4.7 mEq/L (3.5-5.1); Protein, Total 6.8 g/dL (6.4-8.2)
--- NOTE | 2023-08-15 13:13 | RAD REPORT ---
EXAM DESCRIPTION: US - UPPER EXTREMITY VENOUS UNILATE - 08/15/2023 12:50 pm CLINICAL HISTORY: Pain;Swelling Arm swelling and edema. COMPARISON: No comparisons FINDINGS: Right upper extremity venous system was interrogated with Doppler technique. Normal flow, compressibility and augmentation was noted. There is no DVT present. IMPRESSION: No evidence of right upper extremity deep venous thrombosis.
[2023-08-15] MEDS ORDERED: ACETAMINOPHEN 500 MG TAB ONE (13:36)
[2023-08-15] MEDS ORDERED: LIDOCAINE 1% 20 ML MDV ONE (13:36)
[2023-08-15] MEDS ORDERED: LIDOCAINE 2% MPF 5 ML VIAL ONE (13:41)
[2023-08-15] MEDS ORDERED: LIDOCAINE 2% W/EPI 1:200,000 MPF 20 ML VIAL IM ONE (13:45)
--- NOTE | 2023-08-15 15:49 | RAD REPORT ---
EXAM DESCRIPTION: US - Transvaginal OB - 08/15/2023 2:22 pm CLINICAL HISTORY: vaginal discharge COMPARISON: Transvaginal OB dated 08/01/2023 TECHNIQUE: Sonographic grayscale and color flow images of a first-trimester were obtained through approach. FINDINGS: A single live intrauterine is identified. [place]-rump length measures 3.9 millimeters, corresponding to gestational age of 6 weeks, 1 days. heart rate: 121 BPM. Normal yolk sac is visualized. Left ovary is not well visualized. Right ovary contains a hypoechoic highly vascular 2.5 x 2.0 x 2.2 cm lesion, which may represent a corpus luteum. No free fluid. IMPRESSION: 1. Single live intrauterine . 2. Calculated gestational age: 6 weeks, 1 days. Estimated due date by ultrasound: 04/10/2024.
[2023-08-15] MEDS ORDERED: CEFTRIAXONE 1000 MG/VIAL ONE (15:58)
--- NOTE | 2023-08-15 16:04 | ER ---
Nurse's Notes [facility] Name: Sharad Velarde Age: 27 yrs Sex: Female : 1995 Arrival Date: 08/15/2023 Time: 10:58 Bed 17 Private MD: Diagnosis: Cutaneous abscess of right upper limb;Less than 8 weeks gestation of ;Hypertensive heart disease without heart failure;Other specified diabetes mellitus with hyperglycemia Presentation: 08/14 11:09 Chief complaint: Patient states: "I've been out of my BP medication, Amlodipine and mb9 Lisinopril, for 1 week now. I'm seeing a little bit of stars today. I also feel like I have a yeast infection from the antibiotic I'm on from the cyst I had drained a few days ago.". Coronavirus screen: At this time, the client does not indicate any symptoms associated with coronavirus-19. Ebola Screen: No symptoms or risks identified at this time. Initial Sepsis Screen: Does the patient meet any 2 criteria? No. Patient's initial sepsis screen is negative. Does the patient have a suspected source of infection? No. Patient's initial sepsis screen is negative. Risk Assessment: Do you want to hurt yourself or someone else? Patient reports no desire to harm self or others. Onset of symptoms was August 15, 2023. 11:09 Method Of Arrival: Ambulatory mb9 11:09 Acuity: PENNY 3 mb9 Triage Assessment: 11:12 General: Appears in no apparent distress. Behavior is calm, cooperative. Pain: Denies mb9 pain. EENT: No signs and/or symptoms were reported regarding the EENT system. Neuro: [place]ell Agitation-Sedation Scale (RASS): 0 - Alert and Calm Level of Consciousness is awake, alert, obeys commands, Oriented to person, place, time, situation, Appropriate for age. Neuro: Reports seeing stars. Cardiovascular: Heart tones S1 S2 present Patient's skin is warm and dry. Respiratory: Airway is patent Respiratory effort is even, unlabored, Respiratory pattern is regular, symmetrical, Breath sounds are clear bilaterally. GI: Abdomen is round non-distended, Bowel sounds present X 4 quads. Abd is soft and non tender X 4 quads. : Reports discharge, from vagina that is. Derm: Skin is pink, warm \\T\\ dry. Derm: Abscess located on right arm. Musculoskeletal: Range of motion: intact in all extremities. Historical: - Allergies: 11:12 Morphine (Anaphylaxis); mb9 11:12 Motrin (Hives); mb9 - Home Meds: 11:12 lisinopril 10 mg Oral tablet [Active]; amlodipine 5 mg tablet [Active]; Novolog Sub-Q mb9 [Active]; Toujeo SoloStar U-300 Insulin subcutaneous [Active]; - PMHx: 11:12 Asthma; DM; Type 1; HTN; mb9 - PSHx: 11:12 ; mb9 - Immunization history:: Adult Immunizations up to date. - Infectious Disease History:: Denies. - Social history:: Smoking status: Patient denies any tobacco usage or history of. Screenin:14 [facility] ED Fall Risk Assessment (Adult) History of falling in the last 3 months, mb9 including since admission No falls in past 3 months (0 pts) Confusion or Disorientation No (0 pts) Intoxicated or Sedated No (0 pts) Impaired Gait No (0 pts) Mobility Assist Device Used No (0 pt) Altered Elimination No (0 pt) Score/Fall Risk Level 0 - 2 = Low Risk Oriented to surroundings, Maintained a safe environment, Educated pt \\T\\ family on fall prevention, incl call for assistance when getting out of bed. Abuse screen: Denies threats or abuse. Nutritional screening: No deficits noted. Tuberculosis screening: No symptoms or risk factors identified. Assessment: 11:14 Reassessment: see triage assessment. mb9 13:00 Reassessment: No changes from previously documented assessment. Patient and/or family mb9 updated on plan of care and expected duration. Pain level reassessed. Patient is alert, oriented x 3, equal unlabored respirations, skin warm/dry/pink. 14:35 Reassessment: No changes from previously documented assessment. Patient and/or family mb9 updated on plan of care and expected duration. Pain level reassessed. Patient is alert, oriented x 3, equal unlabored respirations, skin warm/dry/pink. 15:35 Reassessment: No changes from previously documented assessment. Patient and/or family mb9 updated on plan of care and expected duration. Pain level reassessed. Patient is alert, oriented x 3, equal unlabored respirations, skin warm/dry/pink. Vital Signs: 11:09 BP 142 / 87; Pulse 83; Resp 18; Temp 98; Pulse Ox 100% ; Weight 71.67 kg; Height 5 ft. mb9 5 in. ; 13:00 BP 156 / 84; Pulse 103; Resp 16; Pulse Ox 99% on R/A; mb9 15:09 BP 140 / 86; Pulse 90; Resp 16; Pulse Ox 100% on R/A; mb9 11:09 Body Mass Index 26.29 (71.67 kg, 165.1 cm) mb9 ED Course: 11:00 Patient arrived in ED. im 11:01 Calvin Gilbert PA is PHCP. cp 11:01 Temo Jimenes MD is Attending Physician. cp 11:05 Maylin Orr, MANISHA is Primary Nurse. mb9 11:12 Triage completed. mb9 11:12 Arm band placed on. mb9 11:14 Placed in gown. Bed in low position. Call light in reach. Side rails up X 1. Provided mb9 Education on: press call light if needing anything. Client placed on continuous cardiac and pulse oximetry monitoring. NIBP monitoring applied. manager monitoring on. 11:55 EKG done, by ED staff, reviewed by Calvin PALUMBO. sm8 12:03 Inserted saline lock: 22 gauge in left antecubital area, using aseptic technique. Blood ld1 collected. 12:52 UPPER EXTREMITY VENOUS UNILATE In Process Unspecified. EDMS 14:24 US Transvaginal Ob In Process Unspecified. EDMS 15:51 No provider procedures requiring assistance completed. mb9 16:19 IV discontinued, intact, bleeding controlled, No redness/swelling at site. Pressure mb9 dressing applied. Administered Medications: 14:09 Drug: Acetaminophen PO 1000 mg PO once Route: PO; mb9 14:33 Follow up: Response: No adverse reaction mb9 14:33 Drug: Lidocaine Infiltration (1 %) 10 ml 5 ml Infiltration once; to bedside with mb9 epinephrine Volume: 5 ml; Route: Infiltration; 16:01 Drug: Rocephin IV 1 grams IV at calculated rate once; Given slow IV push per pharmacy mb9 instructions Route: IV; Rate: calculated rate; Site: left antecubital; Medication: 11:14 VIS not applicable for this client. mb9 Outcome: 16:04 Discharge ordered by . cp 16:19 Discharged to home ambulatory, mb9 16:19 Condition: stable 16:19 Discharge instructions given to patient, family, Instructed on discharge instructions, follow up and referral plans. Demonstrated understanding of instructions, follow-up care, medications, Prescriptions given X 1, 16:19 Patient left the ED. mb9 Signatures: Dispatcher [employer] EDMS Calvin Gilbert PA PA cp Sims, Lauren, RN RN ld1 Maylin Orr RN RN mb9 Jennyfer Valles Scarlett sm8
--- NOTE | 2023-08-15 16:05 | EDPHYS ---
Physician Documentation [facility] Name: Sharad Velarde Age: 27 yrs Sex: Female : 1995 Arrival Date: 08/15/2023 Time: 10:58 Bed 17 Private MD: ED Physician Temo Jimenes HPI: 08/14 11:30 This 27 yrs old Black Female presents to ER via Ambulatory with complaints of 8 weeks cp , High Blood Pressure, Vaginal Discharge, Arm Problem. 11:30 The patient or guardian complains of an abscess, swelling, tenderness. The complaints cp affect the anterior aspect of right shoulder. Context: Context: reports abscess drained at [facility] ED 4 days ago, currently taking prescribed clindamycin. 11:30 Associated signs and symptoms: Pertinent positives: swelling, Pertinent negatives: cp fever, numbness. Patient reports concern about elevated blood pressure and reports being 8 weeks . C/o possible vaginal yeast infection. Historical: - Allergies: 11:12 Morphine (Anaphylaxis); mb9 11:12 Motrin (Hives); mb9 - Home Meds: 11:12 lisinopril 10 mg Oral tablet [Active]; amlodipine 5 mg tablet [Active]; Novolog Sub-Q mb9 [Active]; Toujeo SoloStar U-300 Insulin subcutaneous [Active]; - PMHx: 11:12 Asthma; DM; Type 1; HTN; mb9 - PSHx: 11:12 ; mb9 - Immunization history:: Adult Immunizations up to date. - Infectious Disease History:: Denies. - Social history:: Smoking status: Patient denies any tobacco usage or history of. ROS: 11:35 Constitutional: Negative for body aches, chills, fever, poor PO intake, cp 11:35 Eyes: Negative for injury, pain, redness, and discharge, cp 11:35 ENT: Negative for drainage from ear(s), ear pain, sore throat, difficulty swallowing, difficulty handling secretions, 11:35 Cardiovascular: Negative for chest pain, palpitations, 11:35 Respiratory: Negative for cough, shortness of breath, wheezing, 11:35 Abdomen/GI: Negative for abdominal pain, vomiting, diarrhea, constipation, 11:35 Back: Negative for pain at rest, pain with movement, 11:35 : Positive for vaginal discharge, Negative for urinary symptoms, vaginal bleeding, 11:35 Skin: Positive for abscess, of the anterior aspect of right shoulder, 11:35 Neuro: Negative for altered mental status, dizziness, headache, syncope, weakness, 11:35 All other systems are negative, Exam: 11:40 Constitutional: The patient appears in no acute distress, alert, awake, cp non-diaphoretic, non-toxic, well developed, well nourished, 11:40 Head/Face: Normocephalic, atraumatic. cp 11:40 Eyes: Periorbital structures: appear normal, Conjunctiva: normal, no exudate, no injection, Sclera: no appreciated abnormality, Lids and lashes: appear normal, bilaterally, 11:40 ENT: External ear(s): are unremarkable, Nose: is normal, Mouth: Lips: moist, Oral mucosa: pink and intact, moist, Posterior pharynx: Airway: no evidence of obstruction, patent, 11:40 Chest/axilla: Inspection: normal, 11:40 Cardiovascular: Rate: normal, Rhythm: regular, Edema: is not appreciated, JVD: is not appreciated, 11:40 Respiratory: the patient does not display signs of respiratory distress, Respirations: normal, no use of accessory muscles, no retractions, labored breathing, is not present, Breath sounds: are clear throughout, no decreased breath sounds, no stridor, no wheezing, 11:40 Abdomen/GI: Exam negative for discomfort, distension, guarding, Inspection: abdomen appears normal, 11:40 Back: pain, is absent, ROM is normal, 11:40 Skin: abscess, that is small, of the anterior aspect of right shoulder, with drainage, that is purulent, mild swelling extending distally of right arm, 11:40 Neuro: Orientation: to person, place \T\ time. Mentation: is normal, Cerebellar function: is grossly normal, Motor: moves all fours, strength is normal, Sensation: is normal, 11:43 ECG was reviewed by the Attending Physician. cp Vital Signs: 11:09 BP 142 / 87; Pulse 83; Resp 18; Temp 98; Pulse Ox 100% ; Weight 71.67 kg; Height 5 ft. mb9 5 in. ; 13:00 BP 156 / 84; Pulse 103; Resp 16; Pulse Ox 99% on R/A; mb9 15:09 BP 140 / 86; Pulse 90; Resp 16; Pulse Ox 100% on R/A; mb9 11:09 Body Mass Index 26.29 (71.67 kg, 165.1 cm) 9 Procedures: 14:48 I \T\ D: Incision and drainage was performed for an abscess of the right shoulder Prepped cp with Betadine, Anesthetized with ml's 2% Lidocaine with epinephrine. 7 ml's 2% Lidocaine with epinephrine. Drained moderate amount purulent fluid. bloody fluid. Packed with iodoform gauze, Dressing: sterile 4x4 gauze, the patient tolerated the procedure well, area explored with hemostats. MDM: 11:04 Patient medically screened. cp 16:03 Data reviewed: vital signs, nurses notes, lab test result(s), EKG, radiologic studies, cp ultrasound. 16:03 Differential diagnosis: abscess, cellulitis, htn crisis, BV, candidiasis. I considered cp the following discharge prescriptions or medication management in the emergency department Medications were administered in the Emergency Department. See MAR. Independent interpretation of the following test(s) in the Emergency Department EKG: See my EKG interpretation above. Counseling: I had a detailed discussion with the patient and/or guardian regarding the historical points, exam findings, and any diagnostic results supporting the discharge/admit diagnosis, lab results, radiology results, the need for outpatient follow up, an OB/Gyne specialist, to return to the emergency department if symptoms worsen or persist or if there are any questions or concerns that arise at home. Response to treatment: the patient's symptoms have markedly improved after treatment, and as a result, I will discharge patient. 08/14 11:25 Order name: Blood Culture Adult (2) 08/14 11:25 Order name: CBC with Diff; Complete Time: 13:14 08/14 13:14 Interpretation: Normal except: RBC 3.75; HGB 10.8; HCT 32.7; MITRA% 78.3; NEUT A 8.2. 08/14 11:25 Order name: CMP; Complete Time: 13:14 08/14 13:14 Interpretation: Normal except: NA 133; GLUC 365; AST 11; ALK 133; ALB 2.1; GLOB 4.7; cp A/G 0.4. 08/14 11:25 Order name: Lactate w/ 2H reflex if indic.; Complete Time: 13:14 cp 08/14 11:25 Order name: Protime (+inr); Complete Time: 13:14 cp 08/14 11:25 Order name: Ptt, Activated; Complete Time: 13:14 cp 08/14 11:25 Order name: Urinalysis w/ reflexes; Complete Time: 13:14 cp 08/14 13:15 Interpretation: Normal except: [facility] Extremely Turbid; UGLUC 3+; UBLD 1+; UPROT 3+; cp UUROB 1+; URBC 11-20. 08/14 11:25 Order name: Test, Urine; Complete Time: 13:14 cp 08/14 11:27 Order name: Rh Type cp 08/14 11:31 Order name: UPPER EXTREMITY VENOUS UNILATE; Complete Time: 13:14 EDMS 08/14 13:32 Order name: US Transvaginal Ob; Complete Time: 16:01 cp 08/14 11:25 Order name: EKG; Complete Time: 11:26 cp 08/14 11:25 Order name: Accucheck; Complete Time: 12:03 cp 08/14 11:25 Order name: Cardiac monitoring; Complete Time: 12:03 cp 08/14 11:25 Order name: EKG - Nurse/Tech; Complete Time: 12:03 cp 08/14 11:25 Order name: IV Saline Lock - Large Bore; Complete Time: 12:03 cp 08/14 11:25 Order name: Labs collected and sent; Complete Time: 12:03 cp 08/14 11:25 Order name: O2 Per Protocol; Complete Time: 12:03 cp 08/14 11:25 Order name: O2 Sat Monitoring; Complete Time: 12:03 cp 08/14 11:25 Order name: Vital Signs; Complete Time: 12:03 cp EC:43 Rate is 105 beats/min. Rhythm is regular. HI interval is normal. QRS interval is cp normal. QT interval is normal. T waves are Inverted in lead aVR. Interpreted by me. Reviewed by me. Administered Medications: 14:09 Drug: Acetaminophen PO 1000 mg PO once Route: PO; mb9 14:33 Follow up: Response: No adverse reaction mb9 14:33 Drug: Lidocaine Infiltration (1 %) 10 ml 5 ml Infiltration once; to bedside with mb9 epinephrine Volume: 5 ml; Route: Infiltration; 16:01 Drug: Rocephin IV 1 grams IV at calculated rate once; Given slow IV push per pharmacy mb9 instructions Route: IV; Rate: calculated rate; Site: left antecubital; Disposition: 17:24 Co-signature as Attending Physician, Temo Jimenes MD I reviewed the patient's care rn provided by the Advanced Practice Provider and agree with the diagnosis and treatment plan. Disposition Summary: 08/15/23 16:04 Discharge Ordered Notes: Location: Home cp Problem: an ongoing problem cp Symptoms: have improved cp Condition: Stable cp Diagnosis - Cutaneous abscess of right upper limb cp - Less than 8 weeks gestation of cp - Hypertensive heart disease without heart failure cp - Other specified diabetes mellitus with hyperglycemia cp Followup: cp - With: Private Physician - When: 2 - 3 days - Reason: Wound Recheck Discharge Instructions: - Discharge Summary Sheet cp - Hyperglycemia cp - Hypertension, Adult cp - Skin Abscess, [id number] cp - Form - Blood Pressure Record Sheet cp - How to Take Your Blood Pressure cp Forms: - Medication Reconciliation Form cp - Antibiotic Education cp - Prescription Opioid Use cp - Patient Portal Instructions cp - Leadership Thank You Letter cp Prescriptions: - Cephalexin 500 mg Oral Capsule - take 1 capsule ORAL route every 6 hours for 10 days; 40 capsule; Refills: 0, cp Product Selection Permitted Signatures: Dispatcher [employer] EDTemo Fu MD MD rn Calvin Gilbert PA PA cp Maylin Orr, RN RN mb9 Corrections: (The following items were deleted from the chart) 11:29 11:28 Extremity Venous Uni Ltd+US.RAD.BRZ ordered. EDMS EDMS 15:43 11:28 QUANTITATIVE HCG+C.LAB.BRZ ordered. EDAL EDMS 08/15 14:46 06 11:30 Context: cp cp
[2023-08-15 16:39] VITALS: BP 140/86; TEMP 98; O2SAT 100
--- NOTE | 2023-08-16 14:17 | EKG ---
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
== END 2023-08-15 16:19 | disposition home or self-care (01) ==
LOC: ER 10:58
PROC: 0H9BXZZ Drainage of Right Upper Arm Skin, External Approach (ICD-10-PCS; principal; 2023-08-15)
DX: O26.891 Other specified pregnancy related conditions, first trimester (principal); L02.413 Cutaneous abscess of right upper limb; I11.9 Hypertensive heart disease without heart failure; O24.011 Pre-existing type 1 diabetes mellitus, in pregnancy, first trimester; E10.65 Type 1 diabetes mellitus with hyperglycemia; Z79.4 Long term (current) use of insulin; Z3A.01 Less than 8 weeks gestation of pregnancy
CPT/HCPCS: 93005; 87040 ×2; 85025; 81001; 36415; 81025; 85610; 83605; 85730; 80053; 93971; 76817; 10060; J2001; J0696; 96374; 99285

== ENCOUNTER 2023-10-13 19:03 | Emergency (ER) | payer BC ==
--- NOTE | 2023-10-13 19:30 | ER ---
Nurse's Notes [facility] Name: Sharad Velarde Age: 27 yrs Sex: Female : 1995 Arrival Date: 10/13/2023 Time: 19:03 Bed DX2 Private MD: Diagnosis: Candidiasis of vulva and vagina;Unspecified problem related to medical facilities and other health care-MEDICATION REFILL Presentation: 10/12 19:16 Chief complaint: Patient states: I have a yeast infection and need my medications jb4 refilled. Novolog on sliding scale, Trijeo 22 units at night. and Diflucan. Coronavirus screen: At this time, the client does not indicate any symptoms associated with coronavirus-19. Ebola Screen: No symptoms or risks identified at this time. Initial Sepsis Screen: Does the patient meet any 2 criteria? No. Patient's initial sepsis screen is negative. Initial Sepsis Screen: Does the patient have a suspected source of infection? No. Patient's initial sepsis screen is negative. Risk Assessment: Do you want to hurt yourself or someone else? Patient reports no desire to harm self or others. Onset of symptoms was October 13, 2023. Transition of care: patient was not received from another setting of care. 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 - Infectious Disease History:: Denies. - Social history:: Smoking status: Patient denies any tobacco usage or history of. Screenin:19 [facility] ED Fall Risk Assessment (Adult) History of falling in the last 3 months, jb4 including since admission No falls in past 3 months (0 pts) Confusion or Disorientation No (0 pts) Intoxicated or Sedated No (0 pts) Impaired Gait No (0 pts) Mobility Assist Device Used No (0 pt) Altered Elimination No (0 pt) Score/Fall Risk Level 0 - 2 = Low Risk Oriented to surroundings, Maintained a safe environment. Abuse screen: Denies threats or abuse. Nutritional screening: No deficits noted. Tuberculosis screening: No symptoms or risk factors identified. Assessment: 19:18 General: Appears in no apparent distress. comfortable, Behavior is calm, cooperative, jb4 appropriate for age. Pain: Denies pain. Neuro: Level of Consciousness is awake, alert, obeys commands, Oriented to person, place, time, situation. Cardiovascular: Patient's skin is warm and dry. Respiratory: Airway is patent Respiratory effort is even, unlabored, Respiratory pattern is regular, symmetrical. GI: No signs and/or symptoms were reported involving the gastrointestinal system. : No signs and/or symptoms were reported regarding the genitourinary system. EENT: No signs and/or symptoms were reported regarding the EENT system. Derm: Skin is intact, Skin is pink, warm \T\ dry. Musculoskeletal: Circulation, motion, and sensation intact. Range of motion: intact in all extremities. Vital Signs: 19:16 BP 130 / 90; Pulse 105; Resp 16; Temp 98.3(O); Pulse Ox 100% on R/A; Weight 70.31 kg jb4 (R); Height 5 ft. 5 in. ; 19:16 Body Mass Index 25.79 (70.31 kg, 165.1 cm) jb4 ED Course: 19:04 Patient arrived in ED. mr 19:17 Triage completed. jb4 19:17 Arm band placed on right wrist. jb4 19:19 Avelina De Anda, MANISHA is Primary Nurse. al5 19:19 Calvin Becerra MD is Attending Physician. [facility] 19:19 Patient has correct armband on for positive identification. Bed in low position. Call jb4 light in reach. Side rails up X 1. Provided Education on: plan of care. 19:19 No provider procedures requiring assistance completed. Patient did not have IV access jb4 during this emergency room visit. 19:30 PREGU Sent. me1 19:30 Urinalysis w/ reflexes Sent. me1 19:33 Urine collected: clean catch specimen, clear. me1 Administered Medications: 19:35 Drug: Fluconazole PO 200 mg PO once Route: PO; me1 19:56 Follow up: Response: No adverse reaction me1 Medication: 19:19 VIS not applicable for this client. jb4 Outcome: 19:30 Discharge ordered by . tonia 19:57 Discharged to home ambulatory, nv1 19:57 Condition: stable 19:57 Discharge instructions given to patient, Instructed on discharge instructions, follow up and referral plans. medication usage, Demonstrated understanding of instructions, follow-up care, medications, Prescriptions given X 3, 19:58 Patient left the ED. me1 Signatures: Calvin Becerra MD MD cha Rivera, Maylin, Reg Reg mr Adam Magdaleno, RN RN jb4 Corin Chandler RN RN me1 Avelina De Anda RN RN al5 Corrections: (The following items were deleted from the chart) 19:55 19:16 Chief complaint: Patient states: I have a yeast infection and need my medications me1 refilled. Novolog on sliding scale, Trijeo 22 units at night. and Diflucan. jb4
--- NOTE | 2023-10-13 19:30 | EDPHYS ---
Physician Documentation [facility] Name: Sharad Velarde Age: 27 yrs Sex: Female : 1995 Arrival Date: 10/13/2023 Time: 19:03 Bed DX2 Private MD: ED Physician Calvin Becerra HPI: 10/12 19:26 This 27 yrs old Black Female presents to ER via Ambulatory with complaints of Vaginal tonia Pain, Medication Refill. 19:26 The patient presents with vaginal discharge, that is white discharge. Onset: The tonia symptoms/episode began/occurred 2 day(s) ago. Modifying factors: The symptoms are alleviated by nothing, the symptoms are aggravated by nothing. Associated signs and symptoms: The patient has no apparent associated signs or symptoms. Severity of symptoms: At their worst the symptoms were mild, in the emergency department the symptoms are unchanged. The patient is sexually active, reportedly has a single partner. The patient has experienced similar episodes in the past, several times. 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 - Infectious Disease History:: Denies. - Social history:: Smoking status: Patient denies any tobacco usage or history of. ROS: 19:27 Constitutional: Negative for fever, chills, and weight loss, Eyes: Negative for injury, tonia pain, redness, and discharge, ENT: Negative for injury, pain, and discharge, Neck: Negative for injury, pain, and swelling, Cardiovascular: Negative for chest pain, palpitations, and edema, Respiratory: Negative for shortness of breath, cough, wheezing, and pleuritic chest pain, Abdomen/GI: Negative for abdominal pain, nausea, vomiting, diarrhea, and constipation, Back: Negative for injury and pain, MS/Extremity: Negative for injury and deformity, Skin: Negative for injury, rash, and discoloration, Neuro: Negative for headache, weakness, numbness, tingling, and seizure, Psych: Negative for depression, anxiety, suicide ideation, homicidal ideation, and hallucinations, Allergy/Immunology: Negative for hives, rash, and allergies, Endocrine: Negative for neck swelling, polydipsia, polyuria, polyphagia, and marked weight changes, Hematologic/Lymphatic: Negative for swollen nodes, abnormal bleeding, and unusual bruising, 19:27 : Positive for vaginal discharge, Exam: 19:27 Constitutional: This is a well developed, well nourished patient who is awake, alert, tonia and in no acute distress. Head/Face: Normocephalic, atraumatic. Eyes: Pupils equal round and reactive to light, extra-ocular motions intact. Lids and lashes normal. Conjunctiva and sclera are non-icteric and not injected. Cornea within normal limits. Periorbital areas with no swelling, redness, or edema. ENT: Nares patent. No nasal discharge, no septal abnormalities noted. Tympanic membranes are normal and external auditory canals are clear. Oropharynx with no redness, swelling, or masses, exudates, or evidence of obstruction, uvula midline. Mucous membranes moist. Neck: Trachea midline, no thyromegaly or masses palpated, and no cervical lymphadenopathy. Supple, full range of motion without nuchal rigidity, or vertebral point tenderness. No Meningismus. Chest/axilla: Normal chest wall appearance and motion. Nontender with no deformity. No lesions are appreciated. Cardiovascular: Regular rate and rhythm with a normal S1 and S2. No gallops, murmurs, or rubs. Normal PMI, no JVD. No pulse deficits. Respiratory: Lungs have equal breath sounds bilaterally, clear to auscultation and percussion. No rales, rhonchi or wheezes noted. No increased work of breathing, no retractions or nasal flaring. Abdomen/GI: Soft, non-tender, with normal bowel sounds. No distension or tympany. No guarding or rebound. No evidence of tenderness throughout. Back: No spinal tenderness. No costovertebral tenderness. Full range of motion. Skin: Warm, dry with normal turgor. Normal color with no rashes, no lesions, and no evidence of cellulitis. MS/ Extremity: Pulses equal, no cyanosis. Neurovascular intact. Full, normal range of motion. Neuro: Awake and alert, GCS 15, oriented to person, place, time, and situation. Cranial nerves II-XII grossly intact. Motor strength 5/5 in all extremities. Sensory grossly intact. Cerebellar exam normal. Normal gait. Psych: Awake, alert, with orientation to person, place and time. Behavior, mood, and affect are within normal limits. Vital Signs: 19:16 BP 130 / 90; Pulse 105; Resp 16; Temp 98.3(O); Pulse Ox 100% on R/A; Weight 70.31 kg jb4 (R); Height 5 ft. 5 in. ; 19:16 Body Mass Index 25.79 (70.31 kg, 165.1 cm) jb4 MDM: 19:19 Patient medically screened. [facility] 19:28 Differential diagnosis: benito infection. Data reviewed: vital signs, nurses notes, [facility] lab test result(s), urinalysis. Consideration of Admission/Observation Escalation of care including admission/observation considered. I considered the following discharge prescriptions or medication management in the emergency department Medications were administered in the Emergency Department. See MAR. Historians other than the Patient: pt well informed. Care significantly affected by the following chronic conditions: Diabetes, Hypertension, asthma. Counseling: I had a detailed discussion with the patient and/or guardian regarding the historical points, exam findings, and any diagnostic results supporting the discharge/admit diagnosis, lab results. 10/12 19:26 Order name: Urinalysis w/ reflexes tonia 10/12 19:26 Order name: TOÑAU tonia Administered Medications: 19:35 Drug: Fluconazole PO 200 mg PO once Route: PO; me1 19:56 Follow up: Response: No adverse reaction me1 Disposition Summary: 10/13/23 19:30 Discharge Ordered Notes: Location: Home [facility] Problem: new [facility] Symptoms: have improved [facility] Condition: Stable [facility] Diagnosis - Candidiasis of vulva and vagina tonia - Unspecified problem related to medical facilities and other health care - [facility] MEDICATION REFILL Followup: tonia - With: Private Physician - When: 2 - 3 days - Reason: Recheck today's complaints, Continuance of care, Re-evaluation by your physician Discharge Instructions: - Discharge Summary Sheet tonia - Carbohydrate Counting for Diabetes Mellitus, Adult tonia - Vaginal Yeast Infection, Adult tonia - Vaginitis tonia - Diabetes Mellitus and Nutrition, Adult tonia - Vaginitis, [id number] [facility] Forms: - Medication Reconciliation Form tonia - Antibiotic Education tonia - Prescription Opioid Use tonia - Patient Portal Instructions tonia - Leadership Thank You Letter [facility] Prescriptions: - Novolog FlexPen U-100 Insulin 100 unit/mL (3 mL) Subcutaneous Insulin Pen - inject 1 unit SUBCUTANEOUS route Use as Directed USE ON SLIDING SCALE tonia DIRECTED; 1 pen; Refills: 0, Product Selection Permitted - Toujeo Max U-300 SoloStar 300 unit/mL (3 mL) Subcutaneous Insulin Pen - inject 22 unit SUBCUTANEOUS route once; 1 pen; Refills: 0, Product Selection [facility] Permitted - Diflucan 150 mg Oral tablet - take 1 tablet ORAL route one time for 1 day TAKE ONCE WEEKLY NEEDED; 4 tonia tablet; Refills: 0, Product Selection Permitted Signatures: Dispatcher [employer] EDCalvin Mckay MD MD cha Bryson, James, RN RN jb4 Corin Chandler RN RN me1 Corrections: (The following items were deleted from the chart) 19:27 19:27 Urinalysis+U.LAB.BRZ ordered. EDMS EDMS 19:27 19:27 Test, Urine+UC.LAB.BRZ ordered. EDMS EDMS
[2023-10-13] MEDS ORDERED: FLUCONAZOLE 100 MG TAB ONE (19:32)
[2023-10-13 19:45] LABS: Specific Gravity > 1.030 (1.005-1.030); Sqamous Epithelial <5 /HPF (None Seen); Urine Bacteria <20 /HPF (<20); Urine Bilirubin NEGATIVE (Negative); Urine Blood 1+ (Negative); Urine Clarity Clear (Clear); Urine Color Light-Yellow (Yellow); Urine Culture Reflex Order NOT NEEDED; Urine Glucose 4+ (Over) (Negative); Urine Ketones NEGATIVE (Negative); Urine Microscopic Reflex YN ORDER UMIC; Urine Mucus Slight /HPF (None Seen); Urine Nitrite NEGATIVE (Negative); Urine Protein 2+ (Negative); Urine RBC <5 /HPF (None Seen); Urine Urobilinogen Normal (Normal); Urine WBC <5 /HPF (<5)
[2023-10-13 19:46] LABS: Specific Gravity > 1.030 (1.005-1.030)
[2023-10-13 20:03] VITALS: BP 130/90; TEMP 98.3; O2SAT 100
== END 2023-10-13 19:58 | disposition home or self-care (01) ==
LOC: ER 19:03
DX: B37.31 Acute candidiasis of vulva and vagina (principal); Z76.0 Encounter for issue of repeat prescription; Z75.9 Unspecified problem related to medical facilities and other health care; E10.9 Type 1 diabetes mellitus without complications; I10 Essential (primary) hypertension; J45.909 Unspecified asthma, uncomplicated; Z79.4 Long term (current) use of insulin; Z79.899 Other long term (current) drug therapy; Z88.5 Allergy status to narcotic agent; Z88.8 Allergy status to other drugs, medicaments and biological substances
CPT/HCPCS: 81001; 81025; 99283

== ENCOUNTER 2023-10-28 01:30 | Emergency (ER) | payer BC ==
[2023-10-28] MEDS ORDERED: INSULIN REGULAR (HUMAN) 100 UNIT/ML ONE ×2 (01:54→03:15)
[2023-10-28] MEDS ORDERED: NA CHLORIDE 0.9% 1,000 ML ONE ×3 (01:55→04:28)
[2023-10-28 02:29] LABS: Absolute Basophils 0.1 K/uL (0-0.5); Absolute Lymphocytes (CBC) 1.8 K/uL (0.7-4.9); Absolute Monocytes 0.2 K/uL (0.1-1.3); Absolute Neutrophil 3.2 K/uL (1.8-8.0); Basophils % 1.1 % (0-1.3); Eosinophils % 0.7 % (0-4.4); Hematocrit 36.1 % (36.0-45.0); Hemoglobin 11.7 g/dL (12.0-15.0); Lymphocytes % 34.6 % (15.3-44.8); MCH 27.4 pg (27.0-35.0); MCHC 32.5 g/dL (32.0-36.0); MCV 84.2 fL (80-100); MPV 9.3 fL (7.6-11.3); Monocytes % 3.3 % (3.3-12.3); Neutrophils % 60.3 % (41.7-73.7); Platelets 498 thou/uL (152-406); RBC Red Blood Cell Count 4.29 M/uL (3.86-4.86); Red Cell Distribution Width 12.7 % (12.1-15.2)
[2023-10-28 03:05] LABS: Albumin 2.9 g/dL (3.4-5.0); Albumin/Globulin Ratio 0.6 (1.1-1.8); Anion Gap 18.5 mEq/L (5.0-15.0); Bilirubin Total 0.7 mg/dL (0.2-1.0); Globulin 5.1 g/dL (2.3-3.5)
[2023-10-28 03:07] LABS: Potassium 4.5 mEq/L (3.5-5.1)
[2023-10-28 04:58] LABS: Anion Gap 13.6 mEq/L (5.0-15.0); Potassium 3.6 mEq/L (3.5-5.1)
[2023-10-28 04:59] LABS: Specific Gravity 1.016 (1.005-1.030); Urine Bacteria <20 /HPF (<20); Urine Bilirubin NEGATIVE (Negative); Urine Blood 3+ (OVER) (Negative); Urine Clarity Turbid (Clear); Urine Color Colorless (Yellow); Urine Culture Reflex Order NOT NEEDED; Urine Glucose 4+ (Over) (Negative); Urine Ketones 4+ (Negative); Urine Micro Reflex YN NO BILL MICROSCOPIC; Urine Nitrite NEGATIVE (Negative); Urine Protein 2+ (Negative); Urine RBC <5 /HPF (None Seen); Urine Urobilinogen Normal (Normal); Urine WBC <5 /HPF (<5); Urine pH 5.5 (5.0-7.0)
--- NOTE | 2023-10-28 05:39 | ER ---
Nurse's Notes [facility] Name: Sharad Velarde Age: 27 yrs Sex: Female : 1995 Arrival Date: 10/28/2023 Time: 01:30 Bed 17 Private MD: Diagnosis: Type 1 diabetes mellitus with hyperglycemia;Acute diabetic ketoacidosis, high anion gap metabolic acidosis Presentation: 10/27 01:32 Chief complaint: Patient states: HYPERGLYCEMIA. HASN'T TAKEN MEDS IN 3 DAYS. EMS jj7 states: PT C/O OF WEAKNESS AND HIGH BLOOD SUGAR. Coronavirus screen: At this time, the client does not indicate any symptoms associated with coronavirus-19. Ebola Screen: No symptoms or risks identified at this time. Initial Sepsis Screen: Does the patient meet any 2 criteria? HR > 90 bpm. No. Patient's initial sepsis screen is negative. Does the patient have a suspected source of infection? No. Patient's initial sepsis screen is negative. Risk Assessment: Do you want to hurt yourself or someone else? Patient reports no desire to harm self or others. Onset of symptoms was October 25, 2023. Care prior to arrival: Glucose check: 456. 01:32 Method Of Arrival: EMS: [facility] jj7 01:32 Acuity: PENNY 3 jj7 Triage Assessment: 01:35 General: Appears in no apparent distress. comfortable, Behavior is calm, cooperative, jj7 appropriate for age. Pain: Denies pain. Neuro: Reports weakness GENERALIZED. 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 - Infectious Disease History:: Denies. - Social history:: Smoking status: Reported history of juuling and/or vaping. Patient/guardian denies using alcohol, street drugs, IV drugs, caffeine. - Family history:: not pertinent. Screenin:38 [facility] ED Fall Risk Assessment (Adult) History of falling in the last 3 months, jj7 including since admission No falls in past 3 months (0 pts) Confusion or Disorientation No (0 pts) Intoxicated or Sedated No (0 pts) Impaired Gait No (0 pts) Mobility Assist Device Used No (0 pt) Altered Elimination No (0 pt) Score/Fall Risk Level 0 - 2 = Low Risk Oriented to surroundings, Maintained a safe environment, Educated pt \T\ family on fall prevention, incl call for assistance when getting out of bed, Assessed \T\ reinforced patient's understanding of fall precautions. Abuse screen: Denies threats or abuse. Nutritional screening: No deficits noted. Tuberculosis screening: No symptoms or risk factors identified. Assessment: 02:17 General: Appears in no apparent distress. comfortable, Behavior is calm, cooperative, bm8 appropriate for age. Pain: Denies pain. Neuro: No deficits noted. Level of Consciousness is awake, alert, obeys commands, Oriented to person, place, time, situation, Appropriate for age. Cardiovascular: No deficits noted. Heart tones S1 S2 present Capillary refill < 3 seconds Patient's skin is warm and dry. Respiratory: Airway is patent Respiratory effort is even, unlabored, Respiratory pattern is regular, symmetrical, Breath sounds are clear bilaterally. GI: No signs and/or symptoms were reported involving the gastrointestinal system. Abdomen is flat, non-distended, Bowel sounds present X 4 quads. Reports upper abdominal pain, nausea. : No signs and/or symptoms were reported regarding the genitourinary system. EENT: No signs and/or symptoms were reported regarding the EENT system. Derm: No signs and/or symptoms reported regarding the dermatologic system. Musculoskeletal: No signs and/or symptoms reported regarding the musculoskeletal system. 04:37 Reassessment: Patient appears in no apparent distress at this time. Patient and/or bm8 family updated on plan of care and expected duration. Pain level reassessed. Patient is alert, oriented x 3, equal unlabored respirations, skin warm/dry/pink. pt is resting with eyes closed breathing is even unlabored with symmetrical rise and fall of chest. pt is easily rousable. Patient denies pain at this time. Patient states feeling better. Patient states symptoms have improved. 06:31 Reassessment: No changes from previously documented assessment. Patient and/or family bm8 updated on plan of care and expected duration. Pain level reassessed. Patient is alert, oriented x 3, equal unlabored respirations, skin warm/dry/pink. Patient denies pain at this time. Patient states feeling better. Patient states symptoms have improved. Vital Signs: 01:32 BP 162 / 99; Pulse 100; Resp 16; Temp 97.3; Pulse Ox 100% ; Pain 0/10; jj7 02:17 BP 114 / 85; Pulse 85; Resp 17; Temp 97.3; Pulse Ox 98% ; Pain 3/10; bm8 04:37 BP 155 / 94; Pulse 96; Resp 17; Temp 97.3; Pulse Ox 100% ; Weight 63.5 kg; Height 5 ft. bm8 5 in. ; Pain 0/10; 06:31 BP 151 / 89; Pulse 88; Resp 17; Temp 97.8; Pulse Ox 99% ; Pain 0/10; bm8 04:37 Body Mass Index 23.30 (63.50 kg, 165.1 cm) bm8 01:32 Pain Scale: Adult jj7 02:17 Pain Scale: Adult bm8 04:37 Pain Scale: Adult bm8 06:31 Pain Scale: Adult bm8 Harpreet Coma Score: 02:17 Eye Response: spontaneous(4). Motor Response: obeys commands(6). Verbal Response: bm8 oriented(5). Total: 15. 04:37 Eye Response: spontaneous(4). Motor Response: obeys commands(6). Verbal Response: bm8 oriented(5). Total: 15. 05:40 Eye Response: spontaneous(4). Motor Response: obeys commands(6). Verbal Response: sp4 oriented(5). Total: 15. 06:31 Eye Response: spontaneous(4). Motor Response: obeys commands(6). Verbal Response: bm8 oriented(5). Total: 15. ED Course: 01:30 Patient arrived in ED. ss 01:34 Triage completed. jj7 01:35 Arm band placed on right wrist. Patient placed in an exam room, on a stretcher. jj7 01:38 Pradeep Zapata MD is Attending Physician. sp4 01:38 Kamran Rincon RN is Primary Nurse. bm8 01:38 Patient has correct armband on for positive identification. Bed in low position. Call jj7 light in reach. Provided Education on: USE OF CALL PRETTY. 01:38 No provider procedures requiring assistance completed. Inserted saline lock: 20 gauge bm8 in right antecubital area, using aseptic technique. Blood collected. Flushed with 10 mL NS. 02:17 Client placed on continuous cardiac and pulse oximetry monitoring. NIBP monitoring bm8 applied. Pulse ox on. NIBP on. Door closed. Noise minimized. Warm blanket given. Pillow given. Verbal reassurance given. Head of bed elevated. 06:31 IV discontinued, intact, bleeding controlled, No redness/swelling at site. Pressure bm8 dressing applied. Administered Medications: 01:57 Drug: NS 0.9% IV 1000 ml IV at 1 bolus Per protocol; 1000 mL bolus Route: IV; Rate: 1 bm8 bolus; Site: right antecubital; 03:26 Follow up: Response: No adverse reaction; IV Status: Completed infusion; IV Intake: bm8 1000ml 01:57 Drug: Insulin Regular Human IVP 10 units IVP once {Co-Signature: elyssa (carmelo Colby RN).} Route: IVP; Site: right antecubital; 03:13 Follow up: Response: No adverse reaction bm8 03:13 Drug: Insulin Regular Human IVP 5 units IVP once {Co-Signature: elyssa (carmelo Colby RN).} Route: IVP; Site: right antecubital; 04:37 Follow up: Response: No adverse reaction bm8 03:26 Drug: NS 0.9% IV 1000 ml IV at 1 bolus Per protocol; 1000 mL bolus Route: IV; Rate: 1 bm8 bolus; Site: right antecubital; 04:37 Follow up: Response: No adverse reaction; IV Status: Completed infusion; IV Intake: bm8 1000ml 04:37 Drug: NS 0.9% IV 1000 ml IV at 125 ml/hr continuous Route: IV; Rate: 125 ml/hr; Site: bm8 right antecubital; 06:10 Follow up: Response: No adverse reaction; IV Status: Completed infusion; IV Intake: bm8 1000ml Medication: 02:17 VIS not applicable for this client. bm8 Point of Care Testing: Blood Glucose: 01:35 Blood Glucose: High (>450 mg/dL); jj7 Ranges: Intake: 03:26 IV: 1000ml; Total: 1000ml. bm8 04:37 IV: 1000ml; Total: 2000ml. bm8 06:10 IV: 1000ml; Total: 3000ml. bm8 Outcome: 05:39 Discharge ordered by . sp4 06:31 Discharge ordered by MD. sp4 06:31 Discharged to home ambulatory, bm8 06:31 Condition: stable 06:31 Discharge instructions given to patient, Instructed on discharge instructions, follow up and referral plans. no drinking with medication, no driving heavy equipment, medication usage, safety practices, Demonstrated understanding of instructions, follow-up care, medications, 06:32 Patient left the ED. bm8 Signatures: Florencia Soliz, RN RN Rosette Reyes RN RN jj7 Pradeep Zapata MD MD sp4 McDonald, Brad, RN RN bm8 Johnson, Juwairiyah RN jj7
--- NOTE | 2023-10-28 05:40 | EDPHYS ---
Physician Documentation [facility] Name: Sharad Velarde Age: 27 yrs Sex: Female : 1995 Arrival Date: 10/28/2023 Time: 01:30 Bed 17 Private MD: ED Physician Pradeep Zapata HPI: 10/27 01:38 This 27 yrs old Black Female presents to ER via EMS with complaints of High Blood Sugar.sp4 05:40 27-year-old female presents with acute onset of elevated blood sugar. Patient brought sp4 in for evaluation by the local police force. Patient states she has not been on her insulin for the past 3 days. SOFTWARE LEAD: 01:35 5, Living 3, LMP 10/28/2023, unknown jj7 Historical: - Allergies: 01:35 Morphine (Anaphylaxis); jj7 01:35 Motrin (Hives); jj7 - PMHx: 01:35 Asthma; DM; Type 1; HTN; jj7 - PSHx: 01:35 ; jj7 - Immunization history:: Adult Immunizations Client reports receiving the 2nd dose of the Covid vaccine, Flu vaccine is not up to date. - Infectious Disease History:: Denies. - Social history:: Smoking status: Reported history of juuling and/or vaping. Patient/guardian denies using alcohol, street drugs, IV drugs, caffeine. - Family history:: not pertinent. ROS: 05:40 Constitutional: Negative for fever, chills, and weight loss, sp4 05:40 All other systems are negative, Exam: 05:40 Constitutional: This is a well developed, well nourished patient who is awake, alert, sp4 and in no acute distress. Head/Face: Normocephalic, atraumatic. Eyes: Pupils equal round and reactive to light, extra-ocular motions intact. Lids and lashes normal. Conjunctiva and sclera are not injected. Cornea within normal limits. Periorbital areas with no swelling, redness, or edema. ENT: Nares patent. No nasal discharge, no septal abnormalities noted. Tympanic membranes are normal and external auditory canals are clear. Oropharynx with no redness, swelling, or masses, exudates, or evidence of obstruction, uvula midline. Mucous membranes moist. Neck: Trachea midline, no thyromegaly or masses palpated, and no cervical lymphadenopathy. Supple, full range of motion without nuchal rigidity, or vertebral point tenderness. Chest/axilla: Normal chest wall appearance and motion. Nontender with no deformity. No lesions are appreciated. Cardiovascular: Regular rate and rhythm with a normal S1 and S2. No gallops, murmurs, or rubs. Normal PMI, no JVD. No pulse deficits. Respiratory: Lungs have equal breath sounds bilaterally, clear to auscultation and percussion. No rales, rhonchi or wheezes noted. No increased work of breathing, no retractions or nasal flaring. Abdomen/GI: Soft, with normal bowel sounds. No distension or tympany. No guarding or rebound. No evidence of tenderness throughout. Back: No spinal tenderness. No costovertebral tenderness. Skin: Warm, dry with normal turgor. Normal color with no rashes, no lesions, and no evidence of cellulitis. MS/ Extremity: Pulses equal, no cyanosis. Neurovascular intact. Full, normal range of motion. Neuro: Awake and alert, GCS 15, oriented to person, place, time, and situation. Cranial nerves II-XII grossly intact. Motor strength 5/5 in all extremities. Sensory grossly intact. Psych: Awake, alert, with orientation to person, place and time. Behavior, mood, and affect are within normal limits Vital Signs: 01:32 BP 162 / 99; Pulse 100; Resp 16; Temp 97.3; Pulse Ox 100% ; Pain 0/10; jj7 02:17 BP 114 / 85; Pulse 85; Resp 17; Temp 97.3; Pulse Ox 98% ; Pain 3/10; bm8 04:37 BP 155 / 94; Pulse 96; Resp 17; Temp 97.3; Pulse Ox 100% ; Weight 63.5 kg; Height 5 ft. bm8 5 in. ; Pain 0/10; 06:31 BP 151 / 89; Pulse 88; Resp 17; Temp 97.8; Pulse Ox 99% ; Pain 0/10; bm8 04:37 Body Mass Index 23.30 (63.50 kg, 165.1 cm) bm8 01:32 Pain Scale: Adult jj7 02:17 Pain Scale: Adult bm8 04:37 Pain Scale: Adult bm8 06:31 Pain Scale: Adult bm8 E[place] Coma Score: 02:17 Eye Response: spontaneous(4). Motor Response: obeys commands(6). Verbal Response: bm8 oriented(5). Total: 15. 04:37 Eye Response: spontaneous(4). Motor Response: obeys commands(6). Verbal Response: bm8 oriented(5). Total: 15. 05:40 Eye Response: spontaneous(4). Motor Response: obeys commands(6). Verbal Response: sp4 oriented(5). Total: 15. 06:31 Eye Response: spontaneous(4). Motor Response: obeys commands(6). Verbal Response: bm8 oriented(5). Total: 15. MDM: 01:44 Patient medically screened. sp4 05:40 Differential diagnosis: [place]'s syndrome, diabetes insipidus, DKA, hyperglycemia. sp4 Data reviewed: vital signs, nurses notes, lab test result(s). Consideration of Admission/Observation Escalation of care including admission/observation considered. ED course: Patient's anion gap has closed. Patient stable for discharge home. Patient states she has insulin at home and she does not need prescription for her insulin. Patient takes Toujeo insulin ( Insulin glargine) and also NovoLog via Sliding Scale. . 10/27 01:42 Order name: CBC with Diff; Complete Time: 02:32 sp4 10/27 01:42 Order name: CMP; Complete Time: 03:12 sp4 10/27 01:42 Order name: Lipase; Complete Time: 03:12 sp4 10/27 01:50 Order name: Glucose, Ancillary Testing; Complete Time: 01:56 EDMS 10/27 03:24 Order name: Glucose, Ancillary Testing; Complete Time: 04:04 EDMS 10/27 04:04 Order name: BMP; Complete Time: 05:15 sp4 10/27 04:05 Order name: Urinalysis W/Microscopic; Complete Time: 05:15 sp4 10/27 06:12 Order name: Test, Urine; Complete Time: 06:28 bm8 10/27 06:22 Order name: Glucose, Ancillary Testing; Complete Time: 06:28 EDMS 10/27 01:42 Order name: IV Saline Lock; Complete Time: 01:43 sp4 10/27 01:42 Order name: Labs collected and sent; Complete Time: 01:43 sp4 10/27 01:43 Order name: Accucheck Blood Glucose; Complete Time: 01:43 sp4 10/27 03:06 Order name: Glucose Level; Complete Time: 03:13 ss 10/27 05:37 Order name: Accucheck Blood Glucose; Complete Time: 06:10 sp4 Administered Medications: 01:57 Drug: NS 0.9% IV 1000 ml IV at 1 bolus Per protocol; 1000 mL bolus Route: IV; Rate: 1 bm8 bolus; Site: right antecubital; 03:26 Follow up: Response: No adverse reaction; IV Status: Completed infusion; IV Intake: bm8 1000ml 01:57 Drug: Insulin Regular Human IVP 10 units IVP once {Co-Signature: carmelo Saldivar RN).} Route: IVP; Site: right antecubital; 03:13 Follow up: Response: No adverse reaction [facility] 03:13 Drug: Insulin Regular Human IVP 5 units IVP once {Co-Signature: jcarmelo Bradshaw RN).} Route: IVP; Site: right antecubital; 04:37 Follow up: Response: No adverse reaction [facility] 03:26 Drug: NS 0.9% IV 1000 ml IV at 1 bolus Per protocol; 1000 mL bolus Route: IV; Rate: 1 bm8 bolus; Site: right antecubital; 04:37 Follow up: Response: No adverse reaction; IV Status: Completed infusion; IV Intake: bm8 1000ml 04:37 Drug: NS 0.9% IV 1000 ml IV at 125 ml/hr continuous Route: IV; Rate: 125 ml/hr; Site: [facility] right antecubital; 06:10 Follow up: Response: No adverse reaction; IV Status: Completed infusion; IV Intake: bm8 1000ml Point of Care Testing: Blood Glucose: 01:35 Blood Glucose: High (>450 mg/dL); elyssa Ranges: Critical Glucose Levels:Adult <50 mg/dl or >400 mg/dl <40 mg/dl or >180 mg/dl Disposition Summary: 10/28/23 06:31 Discharge Ordered Notes: Continue home Insulin as prescribed Location: Home(10/28/23 06:31) sp4 Problem: new(10/28/23 06:31) sp4 Symptoms: have improved(10/28/23 06:31) sp4 Condition: Fair(10/28/23 06:31) sp4 Diagnosis - Type 1 diabetes mellitus with hyperglycemia(10/28/23 06:31) sp4 - Acute diabetic ketoacidosis, high anion gap metabolic acidosis sp4 Followup: sp4 - With: Private Physician - When: 7 - 10 days - Reason: Recheck today's complaints Discharge Instructions: - Discharge Summary Sheet sp4 - Diabetic Ketoacidosis sp4 Forms: - Patient Portal Instructions sp4 Critical care time excluding procedures: 05:40 Critical care time: Bedside Care: 36 minutes, Family Intervention: 12 minutes. Total sp4 time: 48 minutes Signatures: Dispatcher [employer] EDMS Florencia Soliz, RN RN ss Rosette Colby RN RN jj7 Pradeep Zapata MD MD sp4 Kamran Rincon RN RN bm8 Rosette Colby RN jj7 Corrections: (The following items were deleted from the chart) 01:43 01:43 CBC+H.LAB.BRZ ordered. EDMS EDMS 01:43 01:43 COMPREHENSIVE METABOLIC PANEL+C.LAB.BRZ ordered. EDMS EDMS 01:43 01:43 LIPASE+C.LAB.BRZ ordered. EDMS EDMS 05:46 05:39 Home sp4 sp4 05:46 05:39 new sp4 sp4 05:46 05:39 have improved sp4 sp4 05:46 05:39 Stable sp4 sp4 05:46 05:39 Type 1 diabetes mellitus with hyperglycemia sp4 sp4 05:46 05:39 Diabetic ketoacidosis, High anion gap acidosis sp4 sp4 06:15 01:44 TEST, SERUM+SC.LAB.BRZ ordered. EDMS EDMS
[2023-10-28 06:16] LABS: Specific Gravity 1.016 (1.005-1.030)
[2023-10-28 06:47] VITALS: BP 151/89; TEMP 97.8; O2SAT 99
== END 2023-10-28 06:32 | disposition home or self-care (01) ==
LOC: ER 01:30
DX: E10.10 Type 1 diabetes mellitus with ketoacidosis without coma (principal); I10 Essential (primary) hypertension
CPT/HCPCS: 96361; 85025; 81001; 80048; 36415; 81025; 82947 ×3; 83690; 80053; 96374; 99284; J7030 ×3

== ENCOUNTER 2023-10-31 17:36 | Emergency (ER) | payer MEDICARE ==
[2023-10-31] MEDS ORDERED: IPRATROPIUM BROM 0.5MG/2.5ML ONE (18:24)
[2023-10-31] MEDS ORDERED: ALBUTEROL 2.5 MG/3 ML NEB SOL ONE ×2 (18:24→20:23)
[2023-10-31 18:25] LABS: Absolute Basophils 0.1 K/uL (0-0.5); Absolute Eosinophils 0.1 K/uL (0-0.5); Absolute Lymphocytes (CBC) 1.7 K/uL (0.7-4.9); Absolute Monocytes 0.2 K/uL (0.1-1.3); Absolute Neutrophil 3.7 K/uL (1.8-8.0); Basophils % 1.2 % (0-1.3); Hematocrit 32.3 % (36.0-45.0); Hemoglobin 10.8 g/dL (12.0-15.0); Lymphocytes % 30.1 % (15.3-44.8); MCH 27.8 pg (27.0-35.0); MCHC 33.5 g/dL (32.0-36.0); MCV 82.7 fL (80-100); MPV 8.2 fL (7.6-11.3); Monocytes % 2.9 % (3.3-12.3); Neutrophils % 64.8 % (41.7-73.7); Nucleated Red Blood Cells % 0.1 % (0-0); Platelets 418 thou/uL (152-406); RBC Red Blood Cell Count 3.91 M/uL (3.86-4.86); Red Cell Distribution Width 12.8 % (12.1-15.2)
[2023-10-31 18:45] LABS: ALT/SGPT 17 U/L (13-56); AST/SGOT 15 U/L (15-37); Albumin 2.6 g/dL (3.4-5.0); Albumin/Globulin Ratio 0.6 (1.1-1.8); Alkaline Phosphatase 96 U/L (45-117); Anion Gap 10.7 mEq/L (5.0-15.0); BUN Blood Urea Nitrogen 17 mg/dL (7-18); Bicarbonate 25 mEq/L (21-32); Bilirubin Total 0.4 mg/dL (0.2-1.0); Globulin 4.4 g/dL (2.3-3.5); Glomerular Filtration Rate 79 ml/min (=/>90); Glucose Level 386 mg/dL (74-106); Magnesium 2.1 mg/dL (1.6-2.4); Potassium 3.7 mEq/L (3.5-5.1); Sodium Level 135 mEq/L (136-145); Troponin High Sensitivity 5.7 pg/mL (<58.9)
[2023-10-31 18:47] LABS: Bilirubin Direct < 0.2 mg/dL (0-0.2); Bilirubin Indirect, Calculated 0.2 mg/dL (0.2-0.8)
--- NOTE | 2023-10-31 18:54 | RAD REPORT ---
EXAM DESCRIPTION: RAD - Chest Single View - 10/31/2023 6:45 pm CLINICAL HISTORY: DYSPNEA COMPARISON: Chest Single View dated 06/25/2023 FINDINGS: Lines: None. Lungs: No evidence of edema or pneumonia. Pleural: No significant pleural effusions or pneumothorax. Cardiac: The heart size is within normal limits. Mediastinum: Within normal limits. Bones: No acute fractures. Other: None IMPRESSION: No acute cardiopulmonary disease.
--- NOTE | 2023-10-31 20:01 | EDPHYS ---
Physician Documentation [facility] Name: Sharad Velarde Age: 27 yrs Sex: Female : 1995 Arrival Date: 10/31/2023 Time: 17:36 Bed 18 Private MD: ED Physician Boris Walsh HPI: 10/30 19:48 This 27 yrs old Black Female presents to ER via Ambulatory with complaints of Breathing rt Difficulty. 19:48 Patient with history of asthma, diabetes presents to the ED with difficulty breathing, rt reported wheezing starting about an hour prior to arrival. The patient reports a chest tightness. Denies other acute complaints at this time, symptoms are moderate in severity, no other aggravating or elevating factors.. 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 - Infectious Disease History:: Denies. - Social history:: Smoking status: Reported history of juuling and/or vaping. - Family history:: not pertinent. ROS: 19:48 Constitutional: Negative for fever, chills, and weight loss, Abdomen/GI: Negative for rt abdominal pain, nausea, vomiting, diarrhea, and constipation, MS/Extremity: Negative for injury and deformity, Skin: Negative for injury, rash, and discoloration, Neuro: Negative for headache, weakness, numbness, tingling, and seizure, 19:48 Cardiovascular: Positive for chest pain, Negative for edema, 19:48 Respiratory: Positive for cough, shortness of breath, wheezing, Exam: 19:48 Constitutional: This is a well developed, well nourished patient who is awake, alert, rt and in no acute distress. Head/Face: Normocephalic, atraumatic. Chest/axilla: Normal chest wall appearance and motion. Nontender with no deformity. No lesions are appreciated. Cardiovascular: Regular rate and rhythm with a normal S1 and S2. No gallops, murmurs, or rubs. Normal PMI, no JVD. No pulse deficits. Abdomen/GI: Soft, non-tender, with normal bowel sounds. No distension or tympany. No guarding or rebound. No evidence of tenderness throughout. Skin: Warm, dry with normal turgor. Normal color with no rashes, no lesions, and no evidence of cellulitis. MS/ Extremity: Pulses equal, no cyanosis. Neurovascular intact. Full, normal range of motion. Neuro: Awake and alert, GCS 15, oriented to person, place, time, and situation. Cranial nerves II-XII grossly intact. Motor strength 5/5 in all extremities. Sensory grossly intact. Cerebellar exam normal. Normal gait. 19:48 ECG was reviewed by the Attending Physician. 19:48 Respiratory: Wheezes heard on all lung shepherd, no respiratory distress, Vital Signs: 17:54 BP 162 / 107; Pulse 104; Resp 18; Temp 98.4; Pulse Ox 100% ; Weight 68.95 kg; Height 5 db ft. 5 in. ; 19:10 BP 155 / 105; Pulse 114; Resp 18; Pulse Ox 100% on R/A; pc2 20:45 BP 131 / 93; Pulse 93; Resp 18; Pulse Ox 100% on R/A; pc2 17:54 Body Mass Index 25.29 (68.95 kg, 165.1 cm) db MDM: 18:01 Patient medically screened. rt 19:48 Differential diagnosis: Asthma, DKA. Data reviewed: vital signs, nurses notes, lab test rt result(s), EKG, radiologic studies. Consideration of Admission/Observation Escalation of care including admission/observation considered. Symptoms improving with treatment in the ED, patient is hyperglycemic without any other signs of DKA. Does not require admission at this time.. I considered the following discharge prescriptions or medication management in the emergency department Medications were administered in the Emergency Department. See MAR. Independent interpretation of the following test(s) in the Emergency Department X-Ray: My interpretation is No pneumonia seen on interpretation of x-ray images. Test considered but Not performed: CT: Symptoms most consistent with a bronchospasm, low suspicion for pulmonary embolus, CT angiogram not indicated. Care significantly affected by the following chronic conditions: Diabetes. Counseling: I had a detailed discussion with the patient and/or guardian regarding the historical points, exam findings, and any diagnostic results supporting the discharge/admit diagnosis, lab results, radiology results, the need for outpatient follow up, to return to the emergency department if symptoms worsen or persist or if there are any questions or concerns that arise at home. Response to treatment: the patient's symptoms have markedly improved after treatment. 10/30 18:09 Order name: Basic Metabolic Panel; Complete Time: 18:47 rt 10/30 18:09 Order name: CBC with Diff; Complete Time: 18:47 rt 10/30 18:09 Order name: LFT's; Complete Time: 18:47 rt 10/30 18:09 Order name: Magnesium; Complete Time: 18:47 rt 10/30 18:09 Order name: Troponin HS; Complete Time: 18:47 rt 10/30 18:09 Order name: XRAY Chest (1 view); Complete Time: 19:03 rt 10/30 18:09 Order name: Cardiac monitoring; Complete Time: 18:51 rt 10/30 18:09 Order name: EKG - Nurse/Tech; Complete Time: 18:51 rt 10/30 18:09 Order name: IV Saline Lock; Complete Time: 18:51 rt 10/30 18:09 Order name: Labs collected and sent; Complete Time: 18:51 rt 10/30 18:09 Order name: O2 Per Protocol; Complete Time: 18:52 rt 10/30 18:09 Order name: O2 Sat Monitoring; Complete Time: 18:52 rt EC:48 Rate is 100 beats/min. Rhythm is regular, Normal Sinus Rhythm with No ectopy. QRS Jackson rt is Normal. IA interval is normal. QRS interval is normal. QT interval is normal. No Q waves. No ST changes noted. Interpreted by me. Administered Medications: 18:20 Drug: DuoNeb Nebulize (3:1) (2.5 mg - 0.5 mg) 3 ml Nebulizer once Route: Nebulizer; rs5 19:00 Follow up: Response: No adverse reaction pc2 20:38 Drug: Insulin Regular Human Sub-Q 10 units Sub-Q once {Co-Signature: tm6 (ella Fabian RN).} Route: Sub-Q; Site: right lower abdomen; 20:55 Follow up: Response: No adverse reaction; Medication administered at discharge. pc2 20:38 Drug: Albuterol Inhalation 2.5 mg Inhalation once Route: Inhalation; pc2 20:56 Follow up: Response: No adverse reaction; Marked relief of symptoms pc2 Disposition Summary: 10/31/23 20:00 Discharge Ordered Notes: Location: Home rt Problem: an acute exacerbation rt Symptoms: have improved rt Condition: Stable rt Diagnosis - Unspecified asthma, uncomplicated rt - Hyperglycemia, unspecified rt Followup: rt - With: Private Physician - When: 2 - 3 days - Reason: Discharge Instructions: - Discharge Summary Sheet rt - Asthma, Adult rt - Hyperglycemia rt Forms: - Medication Reconciliation Form rt - Antibiotic Education rt - Prescription Opioid Use rt - Patient Portal Instructions rt - Leadership Thank You Letter rt Prescriptions: - albuterol sulfate 90 mcg/actuation Inhalation HFA Aerosol Inhaler - inhale 2 puff INHALATION route every 4 hours as needed; 2 Each; Refills: 0, rt Product Selection Permitted Signatures: Dispatcher [employer] Jesenia So, RN RN db Boris Walsh MD MD rt Michael Mauricio RN RN rs5 Alisha Srivastava RN RN pc2 Viktor Fabian RN tm6 Corrections: (The following items were deleted from the chart) 19:04 18:09 Accucheck ordered. rt pc2
--- NOTE | 2023-10-31 20:01 | ER ---
Nurse's Notes [facility] Name: Sharad Velarde Age: 27 yrs Sex: Female : 1995 Arrival Date: 10/31/2023 Time: 17:36 Bed 18 Private MD: Diagnosis: Unspecified asthma, uncomplicated;Hyperglycemia, unspecified Presentation: 10/30 17:54 Chief complaint: Patient states: STATES WAS LYING DOWN AND SUDDENLY HAD DIFFICULTY db BREATHING X 1 HOUR. STATES HX OF ASTHMA . NO TREATMENTS PRIOR TO ARRIVAL. Coronavirus screen: Client denies travel out of the [place] in the last 14 days. At this time, the client does not indicate any symptoms associated with coronavirus-19. Ebola Screen: Patient negative for fever greater than or equal to 101.5 degrees Fahrenheit, and additional compatible Ebola Virus Disease symptoms Patient denies exposure to infectious person. Patient denies travel to an Ebola-affected area in the 21 days before illness onset. No symptoms or risks identified at this time. Initial Sepsis Screen: Does the patient meet any 2 criteria? No. Patient's initial sepsis screen is negative. Does the patient have a suspected source of infection? No. Patient's initial sepsis screen is negative. Risk Assessment: Do you want to hurt yourself or someone else? Patient reports no desire to harm self or others. Onset of symptoms was October 31, 2023 at 17:00. 17:54 Method Of Arrival: Ambulatory db 17:54 Acuity: PENNY 3 db Triage Assessment: 17:56 General: Appears in no apparent distress. comfortable, Behavior is calm, cooperative. db Pain: Denies pain. Neuro: Level of Consciousness is awake, alert, obeys commands, Oriented to person, place, time, situation. Respiratory: Reports shortness of breath at rest Airway is patent Respiratory effort is even, unlabored, Respiratory pattern is regular, symmetrical, Onset: The symptoms/episode began/occurred just prior to arrival, the patient has mild shortness of breath. 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 - Infectious Disease History:: Denies. - Social history:: Smoking status: Reported history of juuling and/or vaping. - Family history:: not pertinent. Screenin:01 [facility] ED Fall Risk Assessment (Adult) History of falling in the last 3 months, rs5 including since admission No falls in past 3 months (0 pts) Confusion or Disorientation No (0 pts) Intoxicated or Sedated No (0 pts) Impaired Gait No (0 pts) Mobility Assist Device Used No (0 pt) Altered Elimination No (0 pt) Score/Fall Risk Level 0 - 2 = Low Risk Oriented to surroundings, Maintained a safe environment. Abuse screen: Denies threats or abuse. Nutritional screening: No deficits noted. Tuberculosis screening: No symptoms or risk factors identified. Assessment: 18:01 General: Appears in no apparent distress. uncomfortable, Behavior is calm, cooperative. rs5 Pain: Complains of pain in chest Pain currently is 3 out of 10 on a pain scale. Quality of pain is described as aching, Is continuous. Neuro: Level of Consciousness is awake, alert, obeys commands, Oriented to person, place, time, situation. Cardiovascular: Patient's skin is warm and dry. Rhythm is sinus tachycardia. Respiratory: Reports shortness of breath Airway is patent Respiratory effort is even, unlabored, Respiratory pattern is regular, symmetrical, GI: Abdomen is round non-distended, Abd is soft and non tender X 4 quads. : No signs and/or symptoms were reported regarding the genitourinary system. EENT: No signs and/or symptoms were reported regarding the EENT system. Derm: Skin is intact, Skin is pink, warm \T\ dry. Musculoskeletal: Range of motion: intact in all extremities. Vital Signs: 17:54 BP 162 / 107; Pulse 104; Resp 18; Temp 98.4; Pulse Ox 100% ; Weight 68.95 kg; Height 5 db ft. 5 in. ; 19:10 BP 155 / 105; Pulse 114; Resp 18; Pulse Ox 100% on R/A; pc2 20:45 BP 131 / 93; Pulse 93; Resp 18; Pulse Ox 100% on R/A; pc2 17:54 Body Mass Index 25.29 (68.95 kg, 165.1 cm) db ED Course: 17:39 Patient arrived in ED. ra3 17:41 Boris Walsh MD is Attending Physician. rt 17:56 Triage completed. db 17:56 Arm band placed on Patient placed in an exam room. db 18:01 Patient has correct armband on for positive identification. Placed in gown. Bed in low rs5 position. Call light in reach. Side rails up X2. 18:03 Michael Mauricio, RN is Primary Nurse. rs5 18:10 No provider procedures requiring assistance completed. Inserted saline lock: 20 gauge rs5 in right antecubital area, using aseptic technique. Blood collected. Flushed with 10 mL NS. 18:46 XRAY Chest (1 view) In Process Unspecified. EDMS 20:57 Provided Education on: medication and f/u instructions. pc2 20:57 IV discontinued, intact, bleeding controlled, No redness/swelling at site. Pressure pc2 dressing applied. Administered Medications: 18:20 Drug: DuoNeb Nebulize (3:1) (2.5 mg - 0.5 mg) 3 ml Nebulizer once Route: Nebulizer; rs5 19:00 Follow up: Response: No adverse reaction pc2 20:38 Drug: Insulin Regular Human Sub-Q 10 units Sub-Q once {Co-Signature: tm6 (ella Fabian RN).} Route: Sub-Q; Site: right lower abdomen; 20:55 Follow up: Response: No adverse reaction; Medication administered at discharge. pc2 20:38 Drug: Albuterol Inhalation 2.5 mg Inhalation once Route: Inhalation; pc2 20:56 Follow up: Response: No adverse reaction; Marked relief of symptoms pc2 Medication: 19:16 VIS not applicable for this client. rs5 Outcome: 20:00 Discharge ordered by . rt 20:54 Discharged to home ambulatory, pc2 20:54 Condition: stable 20:54 Discharge instructions given to patient, Instructed on discharge instructions, follow up and referral plans. medication usage, Demonstrated understanding of instructions, follow-up care, medications, Prescriptions given X 1, 20:57 Patient left the ED. pc2 Signatures: Dispatcher [employer] EDMS Jesenia Tipton RN RN db Boris Walsh MD MD rt Michael Mauricio, MANISHA RN rs5 Geri Milner ra3 Alisha Srivastava, RN RN pc2 Viktor Fabian RN tm6
[2023-10-31] MEDS ORDERED: INSULIN REGULAR (HUMAN) 100 UNIT/ML ONE (20:24)
[2023-10-31 21:33] VITALS: TEMP 98.4; O2SAT 100
[2023-10-31 21:36] VITALS: BP 131/93
--- NOTE | 2023-11-01 12:37 | EKG ---
Test Date: 2023-10-31 Test Time: 18:31:23 Aoc Director Combat Plans Officer: RUSSELL MEASUREMENT RESULTS: Intervals: Rate: 100 MT: 148 QRSD: 82 QT: 352 QTc: 454 [place]: P: 43 MT: 148 QRS: 53 T: 28 INTERPRETIVE STATEMENTS: Normal sinus rhythm Nonspecific T wave abnormality Abnormal ECG Compared to ECG 08/15/2023 11:35:21 T-wave abnormality now present Sinus tachycardia no longer present Electronically Signed On 11-01-23 12:36:01 CDT by Jose Alberto Powell
== END 2023-10-31 20:57 | disposition home or self-care (01) ==
LOC: ER 17:36
DX: J45.909 Unspecified asthma, uncomplicated (principal); E10.65 Type 1 diabetes mellitus with hyperglycemia; I10 Essential (primary) hypertension
CPT/HCPCS: 93005; 96372; 99284

== ENCOUNTER 2023-12-15 04:21 | Emergency (ER) | payer MEDICARE, OTHER ==
[2023-12-15] MEDS ORDERED: FLUCONAZOLE 100 MG TAB ONE (04:52)
--- NOTE | 2023-12-15 05:08 | ER ---
Nurse's Notes [facility] Name: Sharad Velarde Age: 28 yrs Sex: Female : 1995 Arrival Date: 12/15/2023 Time: 04:21 Bed IW1 Private MD: Diagnosis: Candidiasis of vulva and vagina Presentation: 12/14 04:44 Chief complaint: Patient states: i had a UTI and was on ABX until 2 days ago. now i lg3 have a yeast infection. Coronavirus screen: Client denies travel out of the [place] in the last 14 days. At this time, the client does not indicate any symptoms associated with coronavirus-19. Ebola Screen: No symptoms or risks identified at this time. Initial Sepsis Screen: Does the patient meet any 2 criteria? No. Patient's initial sepsis screen is negative. Does the patient have a suspected source of infection? No. Patient's initial sepsis screen is negative. Risk Assessment: Do you want to hurt yourself or someone else? Patient reports no desire to harm self or others. Onset of symptoms was December 14, 2023. 04:44 Method Of Arrival: Ambulatory lg3 04:44 Acuity: PENNY 5 lg3 Triage Assessment: 04:45 General: Appears in no apparent distress. comfortable, Behavior is calm, cooperative. lg3 Pain: Denies pain. EENT: No deficits noted. No signs and/or symptoms were reported regarding the EENT system. Neuro: No deficits noted. [place] Agitation-Sedation Scale (RASS): 0 - Alert and Calm Level of Consciousness is awake, alert, obeys commands, Oriented to person, place, time, situation. Cardiovascular: No deficits noted. Denies chest pain, shortness of breath, Capillary refill < 3 seconds Clubbing of nail beds is absent JVD is absent Patient's skin is warm and dry. Respiratory: No deficits noted. Airway is patent Respiratory effort is even, unlabored, Respiratory pattern is regular, symmetrical. GI: No deficits noted. No signs and/or symptoms were reported involving the gastrointestinal system. Abdomen is round non-distended. : Reports yeast infection X1 day. Derm: No deficits noted. No signs and/or symptoms reported regarding the dermatologic system. Skin is intact, is healthy with good turgor, Skin is dry, Skin is normal, Skin temperature is warm. Musculoskeletal: No deficits noted. No signs and/or symptoms reported regarding the musculoskeletal system. Circulation, motion, and sensation intact. Range of motion: intact in all extremities. 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 - Infectious Disease History:: Denies. - Social history:: Smoking status: Patient denies any tobacco usage or history of. Patient/guardian denies using alcohol, street drugs. - Family history:: not pertinent. Screenin:47 [facility] ED Fall Risk Assessment (Adult) History of falling in the last 3 months, lg3 including since admission No falls in past 3 months (0 pts) Confusion or Disorientation No (0 pts) Intoxicated or Sedated No (0 pts) Impaired Gait No (0 pts) Mobility Assist Device Used No (0 pt) Altered Elimination No (0 pt) Score/Fall Risk Level 0 - 2 = Low Risk Oriented to surroundings, Maintained a safe environment, Educated pt \T\ family on fall prevention, incl call for assistance when getting out of bed, Assessed \T\ reinforced patient's understanding of fall precautions. Abuse screen: Denies threats or abuse. Denies injuries from another. Nutritional screening: No deficits noted. Tuberculosis screening: No symptoms or risk factors identified. Assessment: 04:47 General: see triage assessment. lg3 Vital Signs: 04:44 BP 145 / 89; Pulse 91; Resp 17 S; Temp 98.4(O); Pulse Ox 100% on R/A; Weight 69.85 kg lg3 (R); Height 5 ft. 5 in. (R); 04:44 Body Mass Index 25.63 (69.85 kg, 165.1 cm) lg3 [place] Coma Score: 06:08 Eye Response: spontaneous(4). Motor Response: obeys commands(6). Verbal Response: sp4 oriented(5). Total: 15. ED Course: 04:26 Patient arrived in ED. gm2 04:29 Pradeep Zapata MD is Attending Physician. sp4 04:45 Triage completed. lg3 04:45 Arm band placed on right wrist. lg3 04:47 Patient has correct armband on for positive identification. lg3 05:11 Deepika Caicedo RN is Primary Nurse. lg3 05:11 No provider procedures requiring assistance completed. Patient did not have IV access lg3 during this emergency room visit. Administered Medications: 05:06 Drug: Fluconazole PO 200 mg PO once Route: PO; lg3 05:11 Follow up: Response: No adverse reaction; Medication administered at discharge. lg3 Medication: 04:47 VIS not applicable for this client. lg3 Outcome: 05:07 Discharge ordered by . sp4 05:11 Discharged to home ambulatory, lg3 05:11 Condition: stable 05:11 Discharge instructions given to patient, Instructed on discharge instructions, follow up and referral plans. medication usage, Demonstrated understanding of instructions, follow-up care, medications, Prescriptions given X 1, 05:11 Patient left the ED. lg3 Signatures: Deepika Caicedo RN RN lg3 Pradeep Zapata MD MD sp4 Mylene Marie [facility]
--- NOTE | 2023-12-15 05:08 | EDPHYS ---
Physician Documentation [facility] Name: Sharad Velarde Age: 28 yrs Sex: Female : 1995 Arrival Date: 12/15/2023 Time: 04:21 Bed IW1 Private MD: ED Physician Pradeep Zapata HPI: 12/14 04:29 This 28 yrs old Black Female presents to ER via Unassigned with complaints of Pt states sp4 she has a yeast infection from antibotics. 06:08 Presents with complaint of vaginal itching and discharge consistent with her yeast sp4 infection. States she gets yeast infections associated with diabetes.. 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 - Infectious Disease History:: Denies. - Social history:: Smoking status: Patient denies any tobacco usage or history of. Patient/guardian denies using alcohol, street drugs. - Family history:: not pertinent. ROS: 06:08 Constitutional: Negative for fever, chills, and weight loss, positive for vaginal sp4 itching and discharge 06:08 All other systems are negative, Exam: 06:08 Constitutional: This is a well developed, well nourished patient who is awake, alert, sp4 and in no acute distress. Head/Face: Normocephalic, atraumatic. Eyes: Pupils equal round and reactive to light, extra-ocular motions intact. Lids and lashes normal. Conjunctiva and sclera are not injected. Cornea within normal limits. Periorbital areas with no swelling, redness, or edema. ENT: Nares patent. No nasal discharge, no septal abnormalities noted. Tympanic membranes are normal and external auditory canals are clear. Oropharynx with no redness, swelling, or masses, exudates, or evidence of obstruction, uvula midline. Mucous membranes moist. Neck: Trachea midline, no thyromegaly or masses palpated, and no cervical lymphadenopathy. Supple, full range of motion without nuchal rigidity, or vertebral point tenderness. Chest/axilla: Normal chest wall appearance and motion. Nontender with no deformity. No lesions are appreciated. Cardiovascular: Regular rate and rhythm with a normal S1 and S2. No gallops, murmurs, or rubs. Normal PMI, no JVD. No pulse deficits. Respiratory: Lungs have equal breath sounds bilaterally, clear to auscultation and percussion. No rales, rhonchi or wheezes noted. No increased work of breathing, no retractions or nasal flaring. Abdomen/GI: Soft, with normal bowel sounds. No distension or tympany. No guarding or rebound. No evidence of tenderness throughout. Back: No spinal tenderness. No costovertebral tenderness. Skin: Warm, dry with normal turgor. Normal color with no rashes, no lesions, and no evidence of cellulitis. MS/ Extremity: Pulses equal, no cyanosis. Neurovascular intact. Full, normal range of motion. Neuro: Awake and alert, GCS 15, oriented to person, place, time, and situation. Cranial nerves II-XII grossly intact. Motor strength 5/5 in all extremities. Sensory grossly intact. Psych: Awake, alert, with orientation to person, place and time. Behavior, mood, and affect are within normal limits Vital Signs: 04:44 BP 145 / 89; Pulse 91; Resp 17 S; Temp 98.4(O); Pulse Ox 100% on R/A; Weight 69.85 kg lg3 (R); Height 5 ft. 5 in. (R); 04:44 Body Mass Index 25.63 (69.85 kg, 165.1 cm) lg3 [place] Coma Score: 06:08 Eye Response: spontaneous(4). Motor Response: obeys commands(6). Verbal Response: sp4 oriented(5). Total: 15. MDM: 05:07 Medical Screening Exam initiated sp4 06:09 Differential diagnosis: dysmenorrhea, endometriosis, urinary tract infection, sp4 vaginosis. Data reviewed: vital signs, nurses notes, old medical records. ED course: Was provided prescription for Diflucan.. Administered Medications: 05:06 Drug: Fluconazole PO 200 mg PO once Route: PO; lg3 05:11 Follow up: Response: No adverse reaction; Medication administered at discharge. lg3 Disposition: 06:10 Chart complete. sp4 Disposition Summary: 12/15/23 05:07 Discharge Ordered Notes: Location: Home sp4 Problem: new sp4 Symptoms: have improved sp4 Condition: Stable sp4 Diagnosis - Candidiasis of vulva and vagina sp4 Followup: sp4 - With: Private Physician - When: 7 - 10 days - Reason: Recheck today's complaints Discharge Instructions: - Discharge Summary Sheet sp4 - Vaginal Yeast Infection, Adult sp4 Forms: - Patient Portal Instructions sp4 Prescriptions: - Fluconazole 200 mg Oral tablet - take 2 tablets ORAL route once daily for 10 days; 10 tablet; Refills: 0, sp4 Product Selection Permitted Signatures: Deepika Caicedo RN RN lg3 Pradeep Zapata MD MD sp4 Corrections: (The following items were deleted from the chart) 05:05 04:41 Pelvic Exam Setup ordered. sp4 lg3
[2023-12-15 07:22] VITALS: BP 145/89; TEMP 98.4; O2SAT 100
== END 2023-12-15 05:11 | disposition home or self-care (01) ==
LOC: ER 04:21
DX: B37.31 Acute candidiasis of vulva and vagina (principal)
CPT/HCPCS: 99283

== ENCOUNTER 2024-01-05 12:12 | Emergency (ER) | payer OTHER ==
--- NOTE | 2024-01-05 12:34 | ER ---
Nurse's Notes [facility] Name: Sharad Velarde Age: 28 yrs Sex: Female : 1995 Arrival Date: 01/05/2024 Time: 12:12 Bed 12 Private MD: Diagnosis: Cough;DM type I;Medication Refill Presentation: 01/04 12:26 Chief complaint: Patient states: Out of her long acting insulin for 2 weeks. States she ll1 went to [facility] yesterday, was not in DKA. + cough. Coronavirus screen: Client denies travel out of the [place] in the last 14 days. cough unrelated to allergies, Client presents with at least one sign or symptom that may indicate coronavirus-19. Standard/surgical mask placed on the client. Ebola Screen: Patient denies travel to an Ebola-affected area in the 21 days before illness onset. Initial Sepsis Screen: Does the patient meet any 2 criteria? No. Patient's initial sepsis screen is negative. Does the patient have a suspected source of infection? No. Patient's initial sepsis screen is negative. Risk Assessment: Do you want to hurt yourself or someone else? Patient reports no desire to harm self or others. 12:26 Method Of Arrival: Ambulatory 1 12:26 Acuity: PENNY 3 ll1 12:30 Onset of symptoms was December 22, 2023. 1 Triage Assessment: 12:27 General: Appears in no apparent distress. Behavior is calm, cooperative, appropriate ll1 for age. Pain: Denies pain. Respiratory: Reports cough that is. 12:27 General: needs long acting insulin refilled. 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 - Infectious Disease History:: Denies. - Social history:: Smoking status: Patient denies any tobacco usage or history of. Screenin:39 [facility] ED Fall Risk Assessment (Adult) History of falling in the last 3 months, ll1 including since admission No falls in past 3 months (0 pts) Confusion or Disorientation No (0 pts) Intoxicated or Sedated No (0 pts) Impaired Gait No (0 pts) Mobility Assist Device Used No (0 pt) Altered Elimination No (0 pt) Score/Fall Risk Level 0 - 2 = Low Risk Maintained a safe environment, Hourly rounding (assess needs \T\ fall precautionary measures) done. Abuse screen: Denies threats or abuse. Nutritional screening: No deficits noted. Tuberculosis screening: No symptoms or risk factors identified. Assessment: 12:39 Reassessment: No changes from previously documented assessment. Patient and/or family ll1 updated on plan of care and expected duration. Pain level reassessed. Vital Signs: 12:26 BP 138 / 86; Pulse 104; Resp 17; Pulse Ox 99% on R/A; ll1 12:39 Pulse 98; Resp 16; Temp 97.7; Pulse Ox 100% ; ll1 ED Course: 12:14 Patient arrived in ED. im 12:22 Jerrell Fisher DO is Attending Physician. ms3 12:23 Arm band placed on Patient placed in an exam room, on a stretcher. ll1 12:27 Triage completed. ll1 12:33 Max Henriquez DO is Referral Physician. ms3 12:39 No provider procedures requiring assistance completed. Patient did not have IV access ll1 during this emergency room visit. 12:40 Patient has correct armband on for positive identification. Provided Education on: take ll1 prescribed medications as directed. . Administered Medications: No medications were administered Medication: 12:40 VIS not applicable for this client. ll1 Outcome: 12:33 Discharge ordered by MD. ms3 12:39 Discharged to home ambulatory, ll1 12:39 Condition: stable 12:39 Discharge instructions given to patient, Instructed on discharge instructions, follow up and referral plans. medication usage, Demonstrated understanding of instructions, follow-up care, medications, Prescriptions given X 2, 12:40 Patient left the ED. ll1 Signatures: Francine Dejesus RN RN ll1 Jerrell Fisher DO DO ms3 Jennyfer Valles im Corrections: (The following items were deleted from the chart) 12:28 12:26 Pulse 111bpm; Resp 17bpm; Pulse Ox 99% RA; ll1 ll1 12:28 12:27 General: Appears in no apparent distress. Behavior is calm, cooperative, ll1 appropriate for age, ll1 12:30 12:26 Chief complaint: Patient states: Out of her long acting insulin. States she went ll1 to [facility] yesterday, was not in DKA. + cough ll1
--- NOTE | 2024-01-05 12:34 | EDPHYS ---
Physician Documentation [facility] Name: Sharad Velarde Age: 28 yrs Sex: Female : 1995 Arrival Date: 01/05/2024 Time: 12:12 Bed 12 Private MD: ED Physician Jerrell Fisher HPI: 01/04 12:35 This 28 yrs old Black Female presents to ER via Ambulatory with complaints of Cough, ms3 Medication Refill. 12:35 28 yo female presents to the ED with cough requesting medication for cough. ms3 Additionally, the patient sought a 30-day supply of long-acting insulin, as the next doctor's appointment was not until after Thanksgiving. The patient was seen at [facility] the previous day for suspected diabetic ketoacidosis (DKA) but left against medical advice after test results showed the patient was not in DKA. The patient's blood sugar was 383 mg/dL after eating, which decreased to 123 mg/dL an hour later. The patient reported taking short-acting insulin and required a refill for long-acting insulin (Lantus), 30 units nightly. The patient also reported that tests for flu, COVID-19, and RSV were negative. There was no report of nausea, vomiting, diarrhea, fevers, or chills.. 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 - Infectious Disease History:: Denies. - Social history:: Smoking status: Patient denies any tobacco usage or history of. ROS: 12:35 Constitutional: Negative for fever, and chills. Cardiovascular: Negative for chest ms3 pain, and palpitations. Abdomen/GI: Negative for abdominal pain, nausea, vomiting, diarrhea, and constipation, MS/Extremity: Negative for injury and deformity, Skin: Negative for injury, rash, and discoloration, 12:35 Respiratory: Positive for cough, Exam: 12:35 Constitutional: This is a well developed, well nourished patient who is awake, alert, ms3 and in no acute distress. Chest/axilla: Normal chest wall appearance and motion. Nontender with no deformity. Cardiovascular: Regular rate and rhythm with a normal S1 and S2. No gallops, murmurs, or rubs. Normal PMI, no JVD. No pulse deficits. Respiratory: Lungs have equal breath sounds bilaterally, clear to auscultation and percussion. No rales, rhonchi or wheezes noted. No increased work of breathing, no retractions or nasal flaring. Abdomen/GI: Soft, non-tender, with normal bowel sounds. No distension or tympany. No guarding or rebound. No evidence of tenderness throughout. Skin: Warm, dry with normal turgor. Normal color with no rashes, no lesions, and no evidence of cellulitis. MS/ Extremity: Pulses equal, no cyanosis. Neurovascular intact. Full, normal range of motion. Vital Signs: 12:26 BP 138 / 86; Pulse 104; Resp 17; Pulse Ox 99% on R/A; ll1 12:39 Pulse 98; Resp 16; Temp 97.7; Pulse Ox 100% ; ll1 MDM: 12:28 Medical Screening Exam initiated ms3 12:35 Differential Diagnosis: Other Medication refill vs viral illness vs cough. Data ms3 reviewed: vital signs, nurses notes, and as a result, I will discharge patient. I considered the following discharge prescriptions or medication management in the emergency department See Rx. Counseling: I had a detailed discussion with the patient and/or guardian regarding the historical points, exam findings, and any diagnostic results supporting the discharge/admit diagnosis, the need for outpatient follow up, to return to the emergency department if symptoms worsen or persist or if there are any questions or concerns that arise at home. ED course: Patient patient declines further workup for COVID, flu, blood glucose level. Patient states she just needs a prescription for her Lantus and a medication for her cough. Patient to follow-up with Dr. Henriquez in 2 to 3 days. Patient understands agrees with plan. All questions were answered. Return precautions discussed include any worsening symptoms, nausea, vomiting, or any other concerns.. Administered Medications: No medications were administered Disposition Summary: 01/05/24 12:33 Discharge Ordered Notes: Location: Home ms3 Condition: Stable ms3 Diagnosis - Cough ms3 - DM type I ms3 - Medication Refill ms3 Followup: ms3 - With: Max Henriquez DO - When: 2 - 3 days - Reason: Recheck today's complaints Discharge Instructions: - Discharge Summary Sheet ms3 - Cough, Adult, [id number] ms3 - Diabetes Mellitus Action Plan ms3 Forms: - Medication Reconciliation Form ms3 - Antibiotic Education ms3 - Prescription Opioid Use ms3 - Patient Portal Instructions ms3 - Leadership Thank You Letter ms3 Prescriptions: - Lantus U-100 Insulin 100 unit/mL Subcutaneous solution - inject 30 unit SUBCUTANEOUS route every evening; 1 unit; Refills: 0, Product ms3 Selection Permitted - benzonatate 200 mg Oral capsule - take 1 capsule ORAL route 3 times per day as needed; 21 capsule; Refills: 0, ms3 Product Selection Permitted Signatures: Francine Dejesus RN RN ll1 Jerrell Fisher DO DO ms3
[2024-01-05 12:51] VITALS: BP 138/86
[2024-01-05 12:55] VITALS: TEMP 97.7; O2SAT 100
== END 2024-01-05 12:40 | disposition home or self-care (01) ==
LOC: ER 12:12
DX: R05.9 Cough, unspecified (principal); E10.9 Type 1 diabetes mellitus without complications; Z76.0 Encounter for issue of repeat prescription; I10 Essential (primary) hypertension
CPT/HCPCS: 99283

== ENCOUNTER 2024-01-21 00:36 | Emergency (ER) | payer OTHER ==
[2024-01-21] MEDS ORDERED: ACETAMINOPHEN 500 MG TAB ONE (01:01)
[2024-01-21] MEDS ORDERED: NA CHLORIDE 0.9% 2,000 ML ONE (01:27)
[2024-01-21] MEDS ORDERED: NA CHLORIDE 0.9% 250 ML ONE (01:27)
[2024-01-21 01:48] LABS: SARS-CoV-2 Antigen CONTROL BLUE LINE VIS/BG OK; SARS-CoV-2 Antigen Rapid Res Negative (Negative)
[2024-01-21 01:51] LABS: Hematocrit 34.4 % (36.0-45.0); Hemoglobin 10.9 g/dL (12.0-15.0); Nucleated Red Blood Cells % 0.1 % (0-0)
[2024-01-21 01:59] LABS: Albumin 2.3 g/dL (3.4-5.0); Albumin/Globulin Ratio 0.5 (1.1-1.8); Anion Gap 9.9 mEq/L (5.0-15.0); Bilirubin Total 0.3 mg/dL (0.2-1.0); Potassium 3.9 mEq/L (3.5-5.1); Protein, Total 7.3 g/dL (6.4-8.2)
[2024-01-21 02:11] LABS: Absolute Monocytes 0.4 K/uL (0.1-1.3); Absolute Neutrophil 3.8 K/uL (1.8-8.0); Basophils % 0.4 % (0-1.3); Eosinophils % 0.9 % (0-4.4); Lymphocytes % 18.9 % (15.3-44.8); MCHC 31.7 g/dL (32.0-36.0); MCV 78.9 fL (80-100); MPV 8.4 fL (7.6-11.3); Monocytes % 7.7 % (3.3-12.3); Neutrophils % 72.1 % (41.7-73.7); Platelets 304 thou/uL (152-406); RBC Red Blood Cell Count 4.36 M/uL (3.86-4.86); Red Cell Distribution Width 15.6 % (12.1-15.2)
[2024-01-21] MEDS ORDERED: OSELTAMIVIR 75 MG CAP PO ONE (02:32)
[2024-01-21] MEDS ORDERED: Ringers Lactate 1,000 ML IV ONE (03:32)
[2024-01-21] MEDS ORDERED: D10W 250 ML IV ONE (03:51)
--- NOTE | 2024-01-21 04:13 | EDPHYS ---
Physician Documentation [facility] Name: Sharad Velarde Age: 28 yrs Sex: Female : 1995 Arrival Date: 01/21/2024 Time: 00:36 Bed 5 Private MD: ED Physician Levi Henriquez HPI: 01/20 01:23 This 28 yrs old Black Female presents to ER via Ambulatory with complaints of Flu sp3 Symptoms. 01:23 28-year-old female with a history of diabetes, hypertension, asthma presents to the ED sp3 with chief complaint cough, body aches and fever with Tmax 103. Symptoms have been going on for the last 2 to 3 days with positive sick contacts. Review of systems negative for headache, neck pain, chest pain, abdominal pain, vomiting, diarrhea, syncope, focal neurological deficit, travel history, or any other signs or symptoms on ROS at this time.. 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 Flu vaccine is not up to date. - Infectious Disease History:: Denies. - Social history:: Smoking status: Patient denies any tobacco usage or history of. ROS: 01:24 Constitutional: Negative for fever, chills, and weight loss, Eyes: Negative for injury, sp3 pain, redness, and discharge, ENT: Negative for injury, pain, and discharge, Neck: Negative for injury, pain, and swelling, Cardiovascular: Negative for chest pain, palpitations, and edema, Abdomen/GI: Negative for abdominal pain, nausea, vomiting, diarrhea, and constipation, Back: Negative for injury and pain, MS/Extremity: Negative for injury and deformity, Skin: Negative for injury, rash, and discoloration, Neuro: Negative for headache, weakness, numbness, tingling, and seizure, Psych: Negative for depression, anxiety, suicide ideation, homicidal ideation, and hallucinations, Allergy/Immunology: Negative for hives, rash, and allergies, Endocrine: Negative for neck swelling, polydipsia, polyuria, polyphagia, and marked weight changes, 01:24 All other systems are negative, Exam: 01:24 Constitutional: This is a well developed, well nourished patient who is awake, alert, sp3 and in no acute distress. Head/Face: Normocephalic, atraumatic. Eyes: Pupils equal round and reactive to light, extra-ocular motions intact. Lids and lashes normal. Conjunctiva and sclera are non-icteric and not injected. Cornea within normal limits. Periorbital areas with no swelling, redness, or edema. Neck: Trachea midline, no thyromegaly or masses palpated, and no cervical lymphadenopathy. Supple, full range of motion without nuchal rigidity, or vertebral point tenderness. No Meningismus. Chest/axilla: Normal chest wall appearance and motion. Nontender with no deformity. No lesions are appreciated. Abdomen/GI: Soft, non-tender, with normal bowel sounds. No distension or tympany. No guarding or rebound. No evidence of tenderness throughout. Back: No spinal tenderness. No costovertebral tenderness. Full range of motion. Skin: Warm, dry with normal turgor. Normal color with no rashes, no lesions, and no evidence of cellulitis. MS/ Extremity: Pulses equal, no cyanosis. Neurovascular intact. Full, normal range of motion. Neuro: Awake and alert, GCS 15, oriented to person, place, time, and situation. Cranial nerves II-XII grossly intact. Motor strength 5/5 in all extremities. Sensory grossly intact. Cerebellar exam normal. Normal gait. Psych: Awake, alert, with orientation to person, place and time. Behavior, mood, and affect are within normal limits. 01:24 Respiratory: Patient tachycardic to 130 with active cough and diffuse coarse breath sounds., Vital Signs: 00:58 BP 125 / 96; Pulse 129; Resp 24; Temp 102.9; Pulse Ox 100% ; vc1 01:20 Weight 70.31 kg; dd2 02:03 BP 113 / 72; Pulse 119; Resp 17; Pulse Ox 97% ; dd2 02:08 Temp 100.4(O); dd2 02:30 BP 121 / 83; Pulse 100; Resp 16; Temp 99.8; Pulse Ox 100% ; dd2 03:00 BP 137 / 88; Pulse 98; Resp 16; Pulse Ox 100% ; dd2 03:36 BP 143 / 97; Pulse 98; Resp 16; Pulse Ox 100% ; dd2 04:28 BP 136 / 90; Pulse 97; Resp 16; Temp 99.6; Pulse Ox 100% ; dd2 [place] Coma Score: 01:14 Eye Response: spontaneous(4). Motor Response: obeys commands(6). Verbal Response: dd2 oriented(5). Total: 15. MDM: 00:57 Medical Screening Exam initiated sp3 01:24 Data reviewed: vital signs, nurses notes, lab test result(s), radiologic studies. ED sp3 course: 8-year-old female with type 1 diabetes now with febrile illness and tachycardia out of proportion to fever. Accu-Chek 212. Differential diagnosis includes viral syndrome, dehydration, early sepsis, pneumonia, bronchitis, COVID-19, influenza, among others. Workup will include chest x-ray, laboratory values, viral swabs and 30 mL/kg normal saline bolus with general supportive care with disposition pending workup and patient course.. 02:28 ED course: Influenza positive and lactate of 4.9. I offered patient admission which she sp3 declined stating that she needs to leave in an hour. I even offered her discharge from the ED at 6:30 AM however she insists that she needs to leave in the next hour. We will give as much IV fluids as possible in the next hour prior to her leaving AMA. This cannot be an informed discharge given her lactate level coupled with her type 1 diabetes.. 04:11 ED course: Heart rate now 98 with blood pressure 143/97. Patient's blood sugar did drop sp3 to 34 briefly and patient received D10 and p.o. food and is back up to 93. Patient feels significantly better and wants to be discharged. I offered to recheck the lactate however she wants to go home and we will discharge her home at this time with diagnosis influenza and dehydration.. 01/20 00:58 Order name: Flu; Complete Time: 02:01 sp3 01/20 00:58 Order name: SARS RAPID; Complete Time: 02:01 3 01/20 01:15 Order name: CBC with Diff; Complete Time: 02:23 3 01/20 01:15 Order name: CMP; Complete Time: 02:01 01/20 01:15 Order name: Lactate w/ 2H reflex if indic.; Complete Time: 02:23 3 01/20 01:25 Order name: Glucose, Ancillary Testing; Complete Time: 02:01 EDMS 01/20 04:10 Order name: Glucose, Ancillary Testing; Complete Time: 04:11 EDMS 01/20 04:18 Order name: Ghost Lactate-NO COLLECT Timer; Complete Time: 04:21 EDMS 01/20 04:21 Order name: Glucose, Ancillary Testing; Complete Time: 04:23 EDMS 01/20 01:17 Order name: CXR XRAY 3 01/20 00:59 Order name: PO challenge; Complete Time: 01:00 3 01/20 01:08 Order name: Accucheck; Complete Time: 01:12 01/20 01:15 Order name: Accucheck; Complete Time: 01:18 01/20 01:15 Order name: Cardiac monitoring; Complete Time: 01:34 01/20 01:15 Order name: IV Saline Lock - Large Bore; Complete Time: :01/20 01:15 Order name: Labs collected and sent; Complete Time: :01/20 01:15 Order name: O2 Sat Monitoring; Complete Time: 01:18 3 01/20 01:15 Order name: Vital Signs; Complete Time: :18 3 Administered Medications: 01:03 Drug: Acetaminophen PO 1000 mg PO once Route: PO; dd2 01:33 Follow up: Response: No adverse reaction dd2 01:34 Drug: NS 0.9% IV (30 ml/kg) 30 ml/kg IV at bolus once; Sepsis Protocol; to be given as dd2 a bolus over 90 minutes Route: IV; Rate: bolus; Site: right antecubital; 01:49 Follow up: Response: No adverse reaction dd2 02:04 Follow up: Response: No adverse reaction; IV Status: Completed infusion; IV Intake: dd2 2110ml 02:35 Drug: Oseltamivir PO 75 mg PO once Route: PO; dd2 03:05 Follow up: Response: No adverse reaction dd2 03:36 Drug: Lactated Ringers Solution IV 1000 ml IV at 150 per protocol continuous; Over 30 dd2 minutes Route: IV; Rate: 150 per protocol; Site: right antecubital; 04:00 Follow up: Response: Blood sugar is lowered; IV Status: Order to discontinue infusion; dd2 IV Intake: 100ml 03:58 Drug: D10 in Water IVP 250 ml IVP once Route: IVP; Site: right antecubital; dd2 04:13 Follow up: Response: No adverse reaction dd2 Disposition Summary: 01/21/24 04:13 Discharge Ordered Notes: Location: Home sp3 Condition: Stable sp3 Diagnosis - Influenza, dehydration sp3 Followup: sp3 - With: Private Physician - When: Upon discharge from the Emergency Department - Reason: Continuance of care Discharge Instructions: - Discharge Summary Sheet sp3 Forms: - Medication Reconciliation Form sp3 - Antibiotic Education sp3 - Prescription Opioid Use sp3 - Patient Portal Instructions sp3 - Leadership Thank You Letter sp3 - Work release form dd2 Prescriptions: - Tamiflu 75 mg Oral capsule - take 1 tablet ORAL route every 12 hours for 5 days; 10 tablet; Refills: 0, sp3 Product Selection Permitted Signatures: Dispatcher [employer] EDLevi Bass MD MD sp3 Tamara Bush RN RN vc1 JOSSIE CARVER RN RN dd2 Corrections: (The following items were deleted from the chart) 00:59 00:59 Influenza Screen (A \T\ B)+BA.LAB.BRZ ordered. EDMS EDMS 00:59 00:59 SARS-COV-2 Antigen Rapid+I.LAB.BRZ ordered. EDMS EDMS 01:18 01:18 Chest Single View+RAD.RAD.BRZ ordered. EDMS EDMS
--- NOTE | 2024-01-21 04:13 | ER ---
Nurse's Notes [facility] Name: Sharad Velarde Age: 28 yrs Sex: Female : 1995 Arrival Date: 01/21/2024 Time: 00:36 Bed 5 Private MD: Diagnosis: Influenza, dehydration Presentation: 01/20 00:58 Chief complaint: Patient states: I WAS EXPOSED TO THE FLU AND NOW I AM TIRED WITH BODY vc1 ACHES, COUGH, SOB, RUNNY NOSE FOR 2 DAYS. Coronavirus screen: Client denies travel out of the [place] in the last 14 days. cough unrelated to allergies, fever, runny nose, shortness of breath, At this time, the client does not indicate any symptoms associated with coronavirus-19. Ebola Screen: Patient negative for fever greater than or equal to 101.5 degrees Fahrenheit, and additional compatible Ebola Virus Disease symptoms Patient denies exposure to infectious person. Patient denies travel to an Ebola-affected area in the 21 days before illness onset. No symptoms or risks identified at this time. Initial Sepsis Screen: Does the patient meet any 2 criteria? RR > 20 per min. Temp <36.0*C (96.8*F)) or > 38.3*C (100.9*F). HR > 90 bpm. Yes Does the patient have a suspected source of infection? No. Patient's initial sepsis screen is negative. Risk Assessment: Do you want to hurt yourself or someone else? Patient reports no desire to harm self or others. Onset of symptoms was January 19, 2024. Care prior to arrival: Medication(s) given: ASA, DAYQUIL. Activity prior to arrival: None. Mechanism of Injury: No Mechanism of Injury. Transition of care: patient was not received from another setting of care. 00:58 Method Of Arrival: Ambulatory vc1 00:58 Acuity: PENNY 3 vc1 Triage Assessment: 01:05 General: Appears in no apparent distress. uncomfortable, ill, slender, well groomed, vc1 well developed, well nourished, Behavior is calm, cooperative, appropriate for age. General: Reports chills for fever for feeling ill for. Pain: Complains of pain in "ALL OVER" Pain does not radiate. Pain currently is 10 out of 10 on a pain scale. EENT: Reports nasal congestion. Neuro: Level of Consciousness is awake, alert, obeys commands, Oriented to person, place, time, situation, Appropriate for age. Cardiovascular: Capillary refill < 3 seconds Rhythm is sinus tachycardia. Respiratory: Reports shortness of breath at rest cough that is pain with cough Airway is patent Respiratory effort is even, unlabored, Respiratory pattern is regular, symmetrical. GI: No deficits noted. No signs and/or symptoms were reported involving the gastrointestinal system. : No deficits noted. No signs and/or symptoms were reported regarding the genitourinary system. Derm: Skin is intact, is healthy with good turgor, Skin is dry, Skin is normal, Skin temperature is hot. Musculoskeletal: Circulation, motion, and sensation intact. Range of motion: intact in all extremities. 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 Flu vaccine is not up to date. - Infectious Disease History:: Denies. - Social history:: Smoking status: Patient denies any tobacco usage or history of. Screenin:03 [facility] ED Fall Risk Assessment (Adult) History of falling in the last 3 months, vc1 including since admission No falls in past 3 months (0 pts) Confusion or Disorientation No (0 pts) Intoxicated or Sedated No (0 pts) Impaired Gait No (0 pts) Mobility Assist Device Used No (0 pt) Altered Elimination No (0 pt) Score/Fall Risk Level 0 - 2 = Low Risk Oriented to surroundings, Maintained a safe environment, Educated pt \\T\\ family on fall prevention, incl call for assistance when getting out of bed. Abuse screen: Denies threats or abuse. Nutritional screening: No deficits noted. Tuberculosis screening: No symptoms or risk factors identified. Assessment: 01:35 Reassessment: SEE TRIAGE ASSESSMENT FOR FULL ASSESSMENT. Respiratory: Airway is patent dd2 Respiratory effort is even, unlabored, Respiratory pattern is regular, symmetrical, Breath sounds are coarse bilaterally. 03:36 Reassessment: Patient and/or family updated on plan of care and expected duration. Pain dd2 level reassessed. Patient is alert, oriented x 3, equal unlabored respirations, skin warm/dry/pink. Patient states feeling better. Patient states symptoms have improved. 04:06 Reassessment: BGS 34. PT AAOX4. NOTIFIED DR. HENRIQUEZ, PT GIVEN APPLE JUICE AND SANDWICH. dd2 D10W INFUSING PER MD ORDERS. Vital Signs: 00:58 BP 125 / 96; Pulse 129; Resp 24; Temp 102.9; Pulse Ox 100% ; vc1 01:20 Weight 70.31 kg; dd2 02:03 BP 113 / 72; Pulse 119; Resp 17; Pulse Ox 97% ; dd2 02:08 Temp 100.4(O); dd2 02:30 BP 121 / 83; Pulse 100; Resp 16; Temp 99.8; Pulse Ox 100% ; dd2 03:00 BP 137 / 88; Pulse 98; Resp 16; Pulse Ox 100% ; dd2 03:36 BP 143 / 97; Pulse 98; Resp 16; Pulse Ox 100% ; dd2 04:28 BP 136 / 90; Pulse 97; Resp 16; Temp 99.6; Pulse Ox 100% ; dd2 [place] Coma Score: 01:14 Eye Response: spontaneous(4). Motor Response: obeys commands(6). Verbal Response: dd2 oriented(5). Total: 15. ED Course: 00:46 Patient arrived in ED. gm2 00:55 Levi Henriquez MD is Attending Physician. sp3 00:59 JOSSIE CARVER, MANISHA is Primary Nurse. dd2 01:01 Triage completed. vc1 01:03 Arm band placed on right wrist. vc1 01:04 Patient has correct armband on for positive identification. Bed in low position. Call vc1 light in reach. Pulse ox on. NIBP on. 01:14 Door closed. Noise minimized. Pillow given. PO fluids given. Verbal reassurance given. dd2 01:34 No provider procedures requiring assistance completed. Initial lab(s) drawn, by ED dd2 staff, sent to lab. COVID swab sent to lab. Flu and/or RSV swab sent to lab. Inserted saline lock: 22 gauge in right antecubital area, using aseptic technique. Blood collected. Flushed with 10 mL NS. Patient maintains SpO2 saturation greater than 95% on room air. 01:45 CXR XRAY In Process Unspecified. EDMS 04:28 Provided Education on: D/C INSTRUCTIONS, MEDICATION. dd2 04:28 IV discontinued, intact, bleeding controlled, No redness/swelling at site. Pressure dd2 dressing applied. Administered Medications: 01:03 Drug: Acetaminophen PO 1000 mg PO once Route: PO; dd2 01:33 Follow up: Response: No adverse reaction dd2 01:34 Drug: NS 0.9% IV (30 ml/kg) 30 ml/kg IV at bolus once; Sepsis Protocol; to be given as dd2 a bolus over 90 minutes Route: IV; Rate: bolus; Site: right antecubital; 01:49 Follow up: Response: No adverse reaction dd2 02:04 Follow up: Response: No adverse reaction; IV Status: Completed infusion; IV Intake: dd2 2110ml 02:35 Drug: Oseltamivir PO 75 mg PO once Route: PO; dd2 03:05 Follow up: Response: No adverse reaction dd2 03:36 Drug: Lactated Ringers Solution IV 1000 ml IV at 150 per protocol continuous; Over 30 dd2 minutes Route: IV; Rate: 150 per protocol; Site: right antecubital; 04:00 Follow up: Response: Blood sugar is lowered; IV Status: Order to discontinue infusion; dd2 IV Intake: 100ml 03:58 Drug: D10 in Water IVP 250 ml IVP once Route: IVP; Site: right antecubital; dd2 04:13 Follow up: Response: No adverse reaction dd2 Medication: 01:05 VIS not applicable for this client. vc1 Intake: 02:04 IV: 2110ml; Total: 2110ml. dd2 04:00 IV: 100ml; Total: 2210ml. dd2 Outcome: 04:13 Discharge ordered by . sp3 04:28 Discharged to home ambulatory, dd2 04:28 Condition: stable 04:28 Discharge instructions given to patient, Instructed on discharge instructions, follow up and referral plans. medication usage, Demonstrated understanding of instructions, follow-up care, medications, Prescriptions given X 04:30 Patient left the ED. dd2 Signatures: Dispatcher [employer] EDLevi Bass MD MD sp3 Tamara Bush RN RN 1 Mylene Marie 2 JOSSIE CARVER RN RN dd2
--- NOTE | 2024-01-21 06:22 | RAD REPORT ---
EXAM DESCRIPTION: Chest Single View CLINICAL HISTORY: COUGH COMPARISON: None. FINDINGS: 1 view(s) of the chest. Tubes and lines: None. Cardiomediastinal silhouette: Normal size and contour. Lungs: No consolidation, pneumothorax, or pleural effusion. Bones: No acute osseous abnormality. Upper abdomen: No abnormality identified. IMPRESSION: 1. No acute pulmonary process identified. Electronically signed by: Will Barton DO 01/21/2024 02:10 AM [facility] [id number] Due to temporary technical issues with the PACS/[employer] reporting system, reports are being renetta d by the in-house radiologist without review as a courtesy to ensure prompt reporting the interpreting radiologist is fully responsible for the content of the report. Transcribed Date/Time: 01/21/2024 6:22 AM
[2024-01-21 08:32] VITALS: O2SAT 100
[2024-01-21 08:33] VITALS: BP 136/90; TEMP 99.6
== END 2024-01-21 04:30 | disposition home or self-care (01) ==
LOC: ER 00:36
DX: J11.1 Influenza due to unidentified influenza virus with other respiratory manifestations (principal); E86.0 Dehydration; Z11.52 Encounter for screening for COVID-19; E10.9 Type 1 diabetes mellitus without complications; I10 Essential (primary) hypertension; Z79.4 Long term (current) use of insulin
CPT/HCPCS: 85025; 36415; 82947 ×3; 83605; 80053; 87804 ×2; 71045; 87811; J7120; J7050; J7030

== ENCOUNTER 2024-02-10 10:31 | Emergency (ER) | payer OTHER ==
[2024-02-10 11:30] LABS: Specific Gravity 1.026 (1.005-1.030); Urine Bacteria None Seen /HPF (<20); Urine Bilirubin NEGATIVE (Negative); Urine Blood 1+ (Negative); Urine Clarity Extremely Turbid (Clear); Urine Color Yellow (Yellow); Urine Culture Reflex Order NOT NEEDED; Urine Glucose 3+ (Negative); Urine Ketones TRACE (Negative); Urine Micro Reflex YN NO BILL MICROSCOPIC; Urine Mucus Slight /HPF (None Seen); Urine Nitrite NEGATIVE (Negative); Urine Protein 4+ (Over) (Negative); Urine Urobilinogen 1+ (Normal); Urine WBC <5 /HPF (<5)
[2024-02-10 11:31] LABS: Specific Gravity 1.026 (1.005-1.030)
[2024-02-10] MEDS ORDERED: NA CHLORIDE 0.9% 1,000 ML ONE ×2 (12:03→14:06)
[2024-02-10 12:29] LABS: Absolute Basophils 0.1 K/uL (0-0.5); Absolute Eosinophils 0.1 K/uL (0-0.5); Absolute Lymphocytes (CBC) 1.8 K/uL (0.7-4.9); Absolute Monocytes 0.2 K/uL (0.1-1.3); Eosinophils % 1.3 % (0-4.4); Hematocrit 32.3 % (36.0-45.0); Hemoglobin 10.3 g/dL (12.0-15.0); MCH 25.8 pg (27.0-35.0); MCHC 31.9 g/dL (32.0-36.0); MCV 80.9 fL (80-100); MPV 8.3 fL (7.6-11.3); Monocytes % 3.5 % (3.3-12.3); Neutrophils % 65.2 % (41.7-73.7); Platelets 405 thou/uL (152-406); RBC Red Blood Cell Count 3.99 M/uL (3.86-4.86); Red Cell Distribution Width 18.1 % (12.1-15.2)
--- NOTE | 2024-02-10 12:52 | RAD REPORT ---
EXAMINATION: US FIRST TRIMESTER TRANSVAGINAL WITH DOPPLER CLINICAL INDICATION: with pelvic pain TECHNIQUE: Real-time obstetrical ultrasonography of the maternal pelvis and first trimester was performed transvaginally. Color and spectral Doppler evaluation of the ovaries was performed. COMPARISON: No prior exam. FINDINGS: The uterus measures 9 x 5 x 5 cm. A sac is present within the endometrium measuring 3 mm. A yolk sac is not seen. A pole was not demonstrated. Right ovary normal in size and echotexture Left ovary normal in size and echotexture Right and left adnexa unremarkable No significant free fluid IMPRESSION: 3 mm sac within the endometrium. This may represent a normal intrauterine in which the fet al pole was not seen secondary to the early gestation. Incomplete and even a pseudogestational sac associated with an ectopic can also hess ve this appearance. This should be correlated clinically and with serial beta-hCG levels. Follow-up endovaginal sonogram in one week recommended for reevaluation
[2024-02-10 13:02] LABS: AST/SGOT 13 U/L (15-37); Albumin 2.3 g/dL (3.4-5.0); Albumin/Globulin Ratio 0.5 (1.1-1.8); Alkaline Phosphatase 103 U/L (45-117); Anion Gap 8.7 mEq/L (5.0-15.0); BUN Blood Urea Nitrogen 13 mg/dL (7-18); Bicarbonate 27 mEq/L (21-32); Bilirubin Total 0.3 mg/dL (0.2-1.0); Globulin 4.7 g/dL (2.3-3.5); Glomerular Filtration Rate 90 ml/min (=/>90); Glucose Level 141 mg/dL (74-106); HCG, Quantitative 1122 mIU/mL (1-3); Potassium 3.7 mEq/L (3.5-5.1); Sodium Level 137 mEq/L (136-145)
[2024-02-10 13:03] LABS: ALT/SGPT < 14 U/L (13-56); Bilirubin Direct < 0.2 mg/dL (0-0.2); Bilirubin Indirect, Calculated 0.1 mg/dL (0.2-0.8)
--- NOTE | 2024-02-10 14:29 | EDPHYS ---
Physician Documentation [facility] Name: Sharad Velarde Age: 28 yrs Sex: Female : 1995 Arrival Date: 02/10/2024 Time: 10:31 Bed 18 Private MD: ED Physician Levi Henriquez HPI: 02/09 11:31 This 28 yrs old Black Female presents to ER via Ambulatory with complaints of sp3 Medication Refill - for diabetes. 11:31 28-year-old female with history of diabetes and hypertension presents for insulin sp3 medication refill due to her not being able to get to her doctor until next week. She also complains of dysuria and urinary frequency with concerns of UTI. She denies any back pain, abdominal pain, nausea, vomit, diarrhea, bleeding, [place]US[place] M[place] symptoms, chest pain, shortness of breath, or any other signs or symptoms on ROS at this time.. CHANGE OVER: 14:45 LMP 01/08/2024, unknown kc6 Historical: - Allergies: 10:43 Morphine (Anaphylaxis); aa5 10:43 Motrin (Hives); IBUPROFEN; aa5 - Home Meds: 10:43 Lantus Sub-Q 35 units every evening [Active]; Novolog Sub-Q sliding scale for type 1 aa5 diabetes mellitus [Active]; lisinopril 10 mg Oral tablet [Active]; amlodipine 5 mg tablet [Active]; - PMHx: 10:43 Asthma; DM; Type 1; HTN; aa5 - PSHx: 10:43 ; aa5 - Immunization history:: Adult Immunizations unknown. - Infectious Disease History:: Denies. - Social history:: Smoking status: Patient denies any tobacco usage or history of. ROS: 11:31 Constitutional: Negative for fever, chills, and weight loss, Eyes: Negative for injury, sp3 pain, redness, and discharge, Neck: Negative for injury, pain, and swelling, Cardiovascular: Negative for chest pain, palpitations, and edema, Respiratory: Negative for shortness of breath, cough, wheezing, and pleuritic chest pain, Abdomen/GI: Negative for abdominal pain, nausea, vomiting, diarrhea, and constipation, Back: Negative for injury and pain, MS/Extremity: Negative for injury and deformity, Skin: Negative for injury, rash, and discoloration, Neuro: Negative for headache, weakness, numbness, tingling, and seizure, Psych: Negative for depression, anxiety, suicide ideation, homicidal ideation, and hallucinations, Allergy/Immunology: Negative for hives, rash, and allergies, Endocrine: Negative for neck swelling, polydipsia, polyuria, polyphagia, and marked weight changes, 11:31 All other systems are negative, Exam: 11:32 Constitutional: This is a well developed, well nourished patient who is awake, alert, sp3 and in no acute distress. Head/Face: Normocephalic, atraumatic. Eyes: Pupils equal round and reactive to light, extra-ocular motions intact. Lids and lashes normal. Conjunctiva and sclera are non-icteric and not injected. Cornea within normal limits. Periorbital areas with no swelling, redness, or edema. Neck: Trachea midline, no thyromegaly or masses palpated, and no cervical lymphadenopathy. Supple, full range of motion without nuchal rigidity, or vertebral point tenderness. No Meningismus. Chest/axilla: Normal chest wall appearance and motion. Nontender with no deformity. No lesions are appreciated. Respiratory: Lungs have equal breath sounds bilaterally, clear to auscultation and percussion. No rales, rhonchi or wheezes noted. No increased work of breathing, no retractions or nasal flaring. Abdomen/GI: Soft, non-tender, with normal bowel sounds. No distension or tympany. No guarding or rebound. No evidence of tenderness throughout. Back: No spinal tenderness. No costovertebral tenderness. Full range of motion. Skin: Warm, dry with normal turgor. Normal color with no rashes, no lesions, and no evidence of cellulitis. MS/ Extremity: Pulses equal, no cyanosis. Neurovascular intact. Full, normal range of motion. Neuro: Awake and alert, GCS 15, oriented to person, place, time, and situation. Cranial nerves II-XII grossly intact. Motor strength 5/5 in all extremities. Sensory grossly intact. Cerebellar exam normal. Normal gait. Psych: Awake, alert, with orientation to person, place and time. Behavior, mood, and affect are within normal limits. 11:35 Cardiovascular: Rate: tachycardic, sp3 Vital Signs: 10:39 BP 149 / 96; Pulse 117; Resp 16 S; Temp 97.8(TE); Pulse Ox 100% on R/A; Weight 70.31 kg aa5 (R); Height 5 ft. 5 in. (R); 12:23 BP 156 / 95; Pulse 108; Resp 18 S; Pulse Ox 100% on R/A; kc6 14:45 BP 168 / 105; Pulse 95; Resp 18 S; Pulse Ox 100% on R/A; kc6 10:39 Body Mass Index 25.79 (70.31 kg, 165.1 cm) aa5 MDM: 10:43 Medical Screening Exam initiated sp3 11:32 Data reviewed: vital signs, nurses notes, lab test result(s). ED course: 28-year-old sp3 female here for diabetes insulin refill and concerns of UTI. Differential diagnosis includes hyperglycemia, UTI which may or may not be related. Will obtain Accu-Chek and UA/hCG. Patient is mildly tachycardic so we will also obtain labs and IV fluids. Disposition pending workup and patient course with probable discharge. Accu-Chek is 160.. 11:40 ED course: hCG returns as positive. Upon further examination patient has very mild pain sp3 to the left lower quadrant. Will obtain ultrasound transvaginal and differential now includes ectopic versus other related complications. Patient's LMP was 6 weeks ago. Patient is G6, now at 6 weeks by LMP. ABO Rh, quant and other workup items pending. Will also order normal saline and lactate level.. 13:36 ED course: Lactate of 2.4. Ultrasound demonstrates probable IUP. Patient will need sp3 repeat ultrasound in 1 week with serial hCG levels. Given ketones in the urine and tachycardia, coupled with a lactate, we will administer second liter normal saline. Patient will be discharged home after that time.. 14:15 ED course: Patient clearly told that she needs a repeat ultrasound in 1 week along with sp3 repeat blood levels. After second liter normal saline, patient will be discharged home. Heart rate is now in the 90s.. 02/09 11:02 Order name: UAM; Complete Time: 11:35 sp3 02/09 11:02 Order name: Test, Urine; Complete Time: :35 sp3 02/09 11:28 Order name: Glucose, Ancillary Testing; Complete Time: 11:35 EDMS 02/09 11:39 Order name: Abo/rh Typing; Complete Time: 13:56 sp3 02/09 11:39 Order name: Basic Metabolic Panel; Complete Time: 13:35 sp3 02/09 11:39 Order name: CBC with Diff; Complete Time: 12:56 sp3 02/09 11:39 Order name: Quantitative Hcg; Complete Time: 13:35 sp3 02/09 11:39 Order name: Lactate w/ 2H reflex if indic.; Complete Time: 12:56 sp3 02/09 11:39 Order name: LFT's; Complete Time: 13:35 sp3 02/09 12:54 Order name: Ghost Lactate-NO COLLECT Timer EDDC 02/09 11:39 Order name: US Transvaginal Ob; Complete Time: 12:56 sp3 02/09 11:02 Order name: Accucheck; Complete Time: 11:15 sp3 02/09 11:39 Order name: IV Saline Lock; Complete Time: 12:23 sp3 02/09 11:39 Order name: Labs collected and sent; Complete Time: 12:23 sp3 02/09 11:39 Order name: NPO; Complete Time: 11:40 sp3 Administered Medications: 12:23 Drug: NS 0.9% IV 1000 ml IV at 1 bolus Per protocol; to be given as a bolus over 60 kc6 minutes Route: IV; Rate: 1 bolus; Site: right antecubital; 14:24 Follow up: Response: No adverse reaction; IV Status: Completed infusion; IV Intake: kc6 1000ml 14:14 Drug: NS 0.9% IV 1000 ml IV at 1 bolus Per protocol; to be given as a bolus over 60 kc6 minutes Route: IV; Rate: 1 bolus; Site: right antecubital; 14:44 Follow up: Response: No adverse reaction; IV Status: Completed infusion; IV Intake: kc6 1000ml Disposition Summary: 02/10/24 14:29 Discharge Ordered Notes: Location: Home sp3 Condition: Stable sp3 Diagnosis - Dehydration, new diagnosis sp3 Followup: sp3 - With: Private Physician - When: Upon discharge from the Emergency Department - Reason: Continuance of care Discharge Instructions: - Discharge Summary Sheet sp3 - Abdominal Pain During sp3 - Dehydration, Adult sp3 Forms: - Medication Reconciliation Form sp3 - Antibiotic Education sp3 - Prescription Opioid Use sp3 - Patient Portal Instructions sp3 - Leadership Thank You Letter sp3 Prescriptions: - Lantus U-100 Insulin 100 unit/mL Subcutaneous solution - inject 35 unit SUBCUTANEOUS route every evening; 30 Each; Refills: 0, Product sp3 Selection Permitted - Novolog U-100 Insulin aspart 100 unit/mL Subcutaneous solution - inject 1 unit SUBCUTANEOUS route Use as Directed Use as per your sliding sp3 scale.; 1 unit; Refills: 0, Product Selection Permitted - Zofran 4 mg Oral Tablet - take 1 tablet ORAL route every 12 hours As needed; 20 tablet; Refills: 0, sp3 Product Selection Permitted Critical care time excluding procedures: 13:36 Critical care time: Bedside Care: 20 minutes, Consultation: 10 minutes. Total time: 30 sp3 minutes Signatures: Dispatcher [employer] EDNatalie Coffey RN RN aa5 Levi Henriquez MD MD sp3 Loreta Bower RN RN kc6 Corrections: (The following items were deleted from the chart) 11:35 11:32 Constitutional: This is a well developed, well nourished patient who is awake, sp3 alert, and in no acute distress. Head/Face: Normocephalic, atraumatic. Eyes: Pupils equal round and reactive to light, extra-ocular motions intact. Lids and lashes normal. Conjunctiva and sclera are non-icteric and not injected. Cornea within normal limits. Periorbital areas with no swelling, redness, or edema. Neck: Trachea midline, no thyromegaly or masses palpated, and no cervical lymphadenopathy. Supple, full range of motion without nuchal rigidity, or vertebral point tenderness. No Meningismus. Chest/axilla: Normal chest wall appearance and motion. Nontender with no deformity. No lesions are appreciated. Cardiovascular: Regular rate and rhythm with a normal S1 and S2. No gallops, murmurs, or rubs. Normal PMI, no JVD. No pulse deficits. Respiratory: Lungs have equal breath sounds bilaterally, clear to auscultation and percussion. No rales, rhonchi or wheezes noted. No increased work of breathing, no retractions or nasal flaring. Abdomen/GI: Soft, non-tender, with normal bowel sounds. No distension or tympany. No guarding or rebound. No evidence of tenderness throughout. Back: No spinal tenderness. No costovertebral tenderness. Full range of motion. Skin: Warm, dry with normal turgor. Normal color with no rashes, no lesions, and no evidence of cellulitis. MS/ Extremity: Pulses equal, no cyanosis. Neurovascular intact. Full, normal range of motion. Neuro: Awake and alert, GCS 15, oriented to person, place, time, and situation. Cranial nerves II-XII grossly intact. Motor strength 5/5 in all extremities. Sensory grossly intact. Cerebellar exam normal. Normal gait. Psych: Awake, alert, with orientation to person, place and time. Behavior, mood, and affect are within normal limits. sp3 11:40 11:40 ABO/RH TYPING+BB.LAB.BRZ ordered. EDMS EDMS 11:40 11:40 BASIC METABOLIC PANEL+C.LAB.BRZ ordered. EDMS EDMS 11:40 11:40 CBC+H.LAB.BRZ ordered. EDMS EDMS 11:40 11:40 QUANTITATIVE HCG+C.LAB.BRZ ordered. EDMS EDMS 11:40 11:40 LACTATE+C.LAB.BRZ ordered. EDMS EDMS 11:40 11:40 HEPATIC FUNCTION+C.LAB.BRZ ordered. EDMS EDMS 11:40 11:40 Transvaginal Ob+US.RAD.BRZ ordered. EDMS EDMS
--- NOTE | 2024-02-10 14:29 | ER ---
Nurse's Notes [facility] Name: Sharad Velarde Age: 28 yrs Sex: Female : 1995 Arrival Date: 02/10/2024 Time: 10:31 Bed 18 Private MD: Diagnosis: Dehydration, new diagnosis Presentation: 02/09 10:39 Chief complaint: Patient states: "I need a refill of my Novolog and my Lantus". pt also aa5 states "I need a urine test because I've been having frequent urination for about 3 days". 10:39 Coronavirus screen: At this time, the client does not indicate any symptoms associated aa5 with coronavirus-19. Ebola Screen: Patient denies travel to an Ebola-affected area in the 21 days before illness onset. Initial Sepsis Screen: Does the patient meet any 2 criteria? HR > 90 bpm. Does the patient have a suspected source of infection? No. Patient's initial sepsis screen is negative. Risk Assessment: Do you want to hurt yourself or someone else? Patient reports no desire to harm self or others. Onset of symptoms was February 10, 2024. 10:39 Method Of Arrival: Ambulatory aa5 10:39 Acuity: PENNY 4 aa5 SENIOR QA ENGINEER: 14:45 LMP 01/08/2024, unknown kc6 Historical: - Allergies: 10:43 Morphine (Anaphylaxis); aa5 10:43 Motrin (Hives); IBUPROFEN; aa5 - Home Meds: 10:43 Lantus Sub-Q 35 units every evening [Active]; Novolog Sub-Q sliding scale for type 1 aa5 diabetes mellitus [Active]; lisinopril 10 mg Oral tablet [Active]; amlodipine 5 mg tablet [Active]; - PMHx: 10:43 Asthma; DM; Type 1; HTN; aa5 - PSHx: 10:43 ; aa5 - Immunization history:: Adult Immunizations unknown. - Infectious Disease History:: Denies. - Social history:: Smoking status: Patient denies any tobacco usage or history of. Screenin:58 [facility] ED Fall Risk Assessment (Adult) History of falling in the last 3 months, kc6 including since admission No falls in past 3 months (0 pts) Confusion or Disorientation No (0 pts) Intoxicated or Sedated No (0 pts) Impaired Gait No (0 pts) Mobility Assist Device Used No (0 pt) Altered Elimination No (0 pt) Score/Fall Risk Level 0 - 2 = Low Risk Oriented to surroundings, Maintained a safe environment. Abuse screen: Denies threats or abuse. Denies injuries from another. Nutritional screening: No deficits noted. Tuberculosis screening: No symptoms or risk factors identified. Assessment: 11:37 General: Appears in no apparent distress. comfortable, well groomed, well developed, kc6 Behavior is calm, cooperative, appropriate for age. Pain: Complains of pain in abdomen. Neuro: Level of Consciousness is awake, alert, obeys commands, Oriented to person, place, time, situation, Appropriate for age. Cardiovascular: Denies chest pain, Capillary refill < 3 seconds. Respiratory: Airway is patent Trachea midline Respiratory effort is even, unlabored, Respiratory pattern is regular, symmetrical. GI: Abdomen is round non-distended, Reports lower abdominal pain, cramping, Patient currently denies diarrhea, nausea, vomiting. : Reports urinary frequency. EENT: No signs and/or symptoms were reported regarding the EENT system. Derm: No signs and/or symptoms reported regarding the dermatologic system. Skin is intact, is healthy with good turgor, Skin is pink, warm \\T\\ dry. Musculoskeletal: No signs and/or symptoms reported regarding the musculoskeletal system. Circulation, motion, and sensation intact. Capillary refill < 3 seconds, Range of motion: intact in all extremities. 12:37 Reassessment: Patient appears in no apparent distress at this time. No changes from kc6 previously documented assessment. Patient and/or family updated on plan of care and expected duration. Pain level reassessed. Patient is alert, oriented x 3, equal unlabored respirations, skin warm/dry/pink. 13:37 Reassessment: Patient appears in no apparent distress at this time. No changes from kc6 previously documented assessment. Patient and/or family updated on plan of care and expected duration. Pain level reassessed. Patient is alert, oriented x 3, equal unlabored respirations, skin warm/dry/pink. 14:25 Reassessment: Patient appears in no apparent distress at this time. No changes from kc6 previously documented assessment. Patient and/or family updated on plan of care and expected duration. Pain level reassessed. Patient is alert, oriented x 3, equal unlabored respirations, skin warm/dry/pink. Vital Signs: 10:39 BP 149 / 96; Pulse 117; Resp 16 S; Temp 97.8(TE); Pulse Ox 100% on R/A; Weight 70.31 kg aa5 (R); Height 5 ft. 5 in. (R); 12:23 BP 156 / 95; Pulse 108; Resp 18 S; Pulse Ox 100% on R/A; kc6 14:45 BP 168 / 105; Pulse 95; Resp 18 S; Pulse Ox 100% on R/A; kc6 10:39 Body Mass Index 25.79 (70.31 kg, 165.1 cm) aa5 ED Course: 10:33 Patient arrived in ED. im 10:36 Levi Henriquez MD is Attending Physician. sp3 10:39 Arm band placed on. aa5 10:42 Loreta Bower, MANISHA is Primary Nurse. kc6 10:46 Triage completed. aa5 10:58 Patient has correct armband on for positive identification. Bed in low position. Call kc6 light in reach. Side rails up X 1. Pulse ox on. NIBP on. Door closed. Noise minimized. Lights dimmed. Pillow given. 10:58 Patient maintains SpO2 saturation greater than 95% on room air. kc6 11:14 Test, Urine Sent. tm6 11:14 UAM Sent. tm6 12:19 US Transvaginal Ob In Process Unspecified. EDMS 12:23 Inserted saline lock: 20 gauge in right antecubital area, using aseptic technique. kc6 Blood collected. Flushed with 10 mL NS. 12:51 Notified ED physician of a critical lab result(s). lactate 2.4. kc6 14:45 Provided Education on: f/u with DAVI MALONE. kc6 14:45 No provider procedures requiring assistance completed. IV discontinued, intact, kc6 bleeding controlled, No redness/swelling at site. Pressure dressing applied. Administered Medications: 12:23 Drug: NS 0.9% IV 1000 ml IV at 1 bolus Per protocol; to be given as a bolus over 60 kc6 minutes Route: IV; Rate: 1 bolus; Site: right antecubital; 14:24 Follow up: Response: No adverse reaction; IV Status: Completed infusion; IV Intake: kc6 1000ml 14:14 Drug: NS 0.9% IV 1000 ml IV at 1 bolus Per protocol; to be given as a bolus over 60 kc6 minutes Route: IV; Rate: 1 bolus; Site: right antecubital; 14:44 Follow up: Response: No adverse reaction; IV Status: Completed infusion; IV Intake: kc6 1000ml Medication: 14:45 VIS not applicable for this client. kc6 Intake: 14:24 IV: 1000ml; Total: 1000ml. kc6 14:44 IV: 1000ml; Total: 2000ml. kc6 Outcome: 14:29 Discharge ordered by . sp3 14:45 Discharged to home ambulatory, kc6 14:45 Condition: good 14:45 Discharge instructions given to patient, Instructed on discharge instructions, follow up and referral plans. medication usage, Demonstrated understanding of instructions, follow-up care, medications, Prescriptions given X 3, 14:50 Patient left the ED. kc6 Signatures: Dispatcher [employer] EDNatalie Coffey RN RN aa5 Levi Henriquez MD MD sp3 Loreta Bower RN RN kc6 Jennyfer Valles Tawney RN RN tm6 Corrections: (The following items were deleted from the chart) 10:46 10:39 Acuity: PENNY 3 aa5 aa5
[2024-02-10 15:09] VITALS: TEMP 97.8; O2SAT 100
[2024-02-10 15:16] VITALS: BP 168/105
== END 2024-02-10 14:50 | disposition home or self-care (01) ==
LOC: ER 10:31
DX: E86.0 Dehydration (principal); Z33.1 Pregnant state, incidental; Z76.0 Encounter for issue of repeat prescription; E10.9 Type 1 diabetes mellitus without complications; I10 Essential (primary) hypertension; Z79.4 Long term (current) use of insulin
CPT/HCPCS: 96361; 85025; 81001; 80048; 36415; 86900; 81025; 86901; 82947; 80076; 83605; 84702; 76817; 96360; 99284; J7030 ×2

== ENCOUNTER 2024-02-23 15:11 | Emergency (ER) | payer OTHER ==
[2024-02-23 17:38] LABS: Specific Gravity 1.028 (1.005-1.030); Sqamous Epithelial <5 /HPF (None Seen); Urine Bacteria <20 /HPF (<20); Urine Bilirubin NEGATIVE (Negative); Urine Blood Trace (Negative); Urine Clarity Clear (Clear); Urine Color Colorless (Yellow); Urine Culture Reflex Order NOT NEEDED; Urine Glucose 4+ (Over) (Negative); Urine Ketones 1+ (Negative); Urine Microscopic Reflex YN ORDER UMIC; Urine Nitrite NEGATIVE (Negative); Urine Protein 2+ (Negative); Urine RBC <5 /HPF (None Seen); Urine Urobilinogen Normal (Normal); Urine WBC <5 /HPF (<5)
--- NOTE | 2024-02-23 19:04 | ER ---
Nurse's Notes [facility] Name: Sharad Velarde Age: 28 yrs Sex: Female : 1995 Arrival Date: 02/23/2024 Time: 15:11 Bed 11 Private MD: Diagnosis: Bacterial vaginosis;Concern for sexually transmitted infection without diagnosis Presentation: 02/22 16:16 Chief complaint: Patient states: here for STD check. No discharge or burning with cm10 urination. pt states that she has a new partner and would like to be checked. Pt approximately 8weeks . Coronavirus screen: Client denies travel out of the [place] in the last 14 days. Ebola Screen: Patient denies travel to an Ebola-affected area in the 21 days before illness onset. No symptoms or risks identified at this time. Initial Sepsis Screen: Does the patient meet any 2 criteria? HR > 90 bpm. Does the patient have a suspected source of infection? No. Patient's initial sepsis screen is negative. Risk Assessment: Do you want to hurt yourself or someone else? Patient reports no desire to harm self or others. Onset of symptoms was February 23, 2024. 16:16 Method Of Arrival: Ambulatory cm10 16:16 Acuity: PENNY 4 cm10 Triage Assessment: 16:19 General: Appears in no apparent distress. comfortable, Behavior is calm, cooperative. cm10 Neuro: No deficits noted. Level of Consciousness is awake, alert, obeys commands, Oriented to person, place, time, situation, Appropriate for age. Respiratory: No deficits noted. Airway is patent Respiratory effort is even, unlabored, Respiratory pattern is regular, symmetrical. BLOCK TESTER: 16:19 6, Full Term 3, 3, Living 3, LMP 12/26/2023, Verified, EDC cm10 10/01/2024, Gestational age from LMP: 8 weeks 3 days Historical: - Allergies: 16:18 Morphine (Anaphylaxis); cm10 16:18 Motrin (Hives); IBUPROFEN; cm10 - PMHx: 16:18 Asthma; DM; Type 1; HTN; cm10 - PSHx: 16:18 ; cm10 - Immunization history:: Adult Immunizations up to date. - Infectious Disease History:: Denies. - Social history:: Smoking status: Patient denies any tobacco usage or history of. Screenin:20 [facility] ED Fall Risk Assessment (Adult) History of falling in the last 3 months, lg3 including since admission No falls in past 3 months (0 pts) Confusion or Disorientation No (0 pts) Intoxicated or Sedated No (0 pts) Impaired Gait No (0 pts) Mobility Assist Device Used No (0 pt) Altered Elimination No (0 pt) Score/Fall Risk Level 0 - 2 = Low Risk Oriented to surroundings, Maintained a safe environment, Educated pt \T\ family on fall prevention, incl call for assistance when getting out of bed, Assessed \T\ reinforced patient's understanding of fall precautions. Abuse screen: Denies threats or abuse. Denies injuries from another. Nutritional screening: No deficits noted. Tuberculosis screening: No symptoms or risk factors identified. Assessment: 19:20 General: Appears in no apparent distress. comfortable, Behavior is calm, cooperative. lg3 Pain: Denies pain. Neuro: No deficits noted. Sewell Agitation-Sedation Scale (RASS): 0 - Alert and Calm Level of Consciousness is awake, alert, obeys commands, Oriented to person, place, time, situation. Cardiovascular: No deficits noted. Denies chest pain, shortness of breath, Capillary refill < 3 seconds Clubbing of nail beds is absent JVD is absent Patient's skin is warm and dry. Respiratory: No deficits noted. Airway is patent Respiratory effort is even, unlabored, Respiratory pattern is regular, symmetrical. GI: No deficits noted. No signs and/or symptoms were reported involving the gastrointestinal system. : No signs and/or symptoms were reported regarding the genitourinary system. EENT: No deficits noted. No signs and/or symptoms were reported regarding the EENT system. Derm: No deficits noted. No signs and/or symptoms reported regarding the dermatologic system. Skin is intact, is healthy with good turgor, Skin is dry, Skin is normal, Skin temperature is warm. Musculoskeletal: No deficits noted. No signs and/or symptoms reported regarding the musculoskeletal system. Circulation, motion, and sensation intact. Range of motion: intact in all extremities. Vital Signs: 16:16 BP 172 / 110; Pulse 99; Resp 16; Temp 97.8; Pulse Ox 100% on R/A; Weight 68.04 kg; cm10 Height 5 ft. 5 in. ; Pain 0/10; 19:20 BP 169 / 101; Pulse 87; Resp 17 S; Pulse Ox 100% on R/A; lg3 16:16 Body Mass Index 24.96 (68.04 kg, 165.1 cm) cm10 16:16 Pain Scale: Adult cm10 ED Course: 15:13 Patient arrived in ED. ra3 15:26 Willa Miller MD is Attending Physician. sd2 16:18 Triage completed. cm10 16:19 Arm band placed on right wrist. Patient placed in waiting room. cm10 17:19 Michael Mauricio, RN is Primary Nurse. rs5 19:20 Patient has correct armband on for positive identification. lg3 19:20 No provider procedures requiring assistance completed. Patient did not have IV access lg3 during this emergency room visit. Administered Medications: No medications were administered Medication: 19:20 VIS not applicable for this client. lg3 Outcome: 19:03 Discharge ordered by . sd2 19:20 Discharged to home ambulatory, lg3 19:20 Condition: stable 19:20 Discharge instructions given to patient, Instructed on discharge instructions, follow up and referral plans. medication usage, safe sex practices, Demonstrated understanding of instructions, follow-up care, medications, Prescriptions given X 1, 19:23 Patient left the ED. lg3 Signatures: Deepika Caicedo RN RN lg3 Willa Miller MD MD sd2 Michael Mauricio, RN RN rs5 April Li RN RN cm10 Geri Milner ra3
--- NOTE | 2024-02-23 19:04 | EDPHYS ---
Physician Documentation [facility] Name: Sharad Velarde Age: 28 yrs Sex: Female : 1995 Arrival Date: 02/23/2024 Time: 15:11 Bed 11 Private MD: ED Physician Willa Miller HPI: 02/22 16:25 This 28 yrs old Black Female presents to ER via Ambulatory with complaints of Pelvic sd2 Pain - psbl 8wks preg. 16:25 28 yo F at approximately 8 weeks gestation presents with CC of requesting STI sd2 testing. Reports she has not yet been able to be seen by the OBGYN and her sexual partner is concerned due to them having unprotected sex. She has not had any symptoms including urinary symptoms, vaginal discharge, vaginal bleeding or abdominal pain. . 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 - Infectious Disease History:: Denies. - Social history:: Smoking status: Patient denies any tobacco usage or history of. ROS: 16:25 Constitutional: Negative for fever, chills, and weight loss, Eyes: Negative for injury, sd2 pain, redness, and discharge, Cardiovascular: Negative for chest pain, palpitations, and edema, Respiratory: Negative for shortness of breath, cough, wheezing. Abdomen/GI: Negative for abdominal pain, nausea, vomiting, diarrhea. Back: Negative for injury and pain, : Negative for dysuria, urinary frequency, hesitancy, urgency and hematuria. MS/Extremity: Negative for injury and deformity, Skin: Negative for injury, rash, and discoloration, Exam: 16:25 Constitutional: This is a well developed, well nourished patient who is awake, alert, sd2 and in no acute distress. Head/Face: Normocephalic, atraumatic. Eyes: EOMI, normal conjunctiva bilaterally Chest/axilla: Normal chest wall appearance and motion. Nontender with no deformity. Cardiovascular: Regular rate and rhythm with a normal S1 and S2. No gallops, murmurs, or rubs. 2+ distal pulses. Respiratory: Lungs have equal breath sounds bilaterally, clear to auscultation and percussion. No rales, rhonchi or wheezes noted. No increased work of breathing, no retractions or nasal flaring. Abdomen/GI: Soft, non-tender, with normal bowel sounds. No guarding or rebound. No evidence of tenderness throughout. Skin: Warm, dry with normal turgor. Normal color with no rashes, no lesions, and no evidence of cellulitis. MS/ Extremity: Pulses equal, no cyanosis. Neurovascular intact. Full, normal range of motion. Psych: Awake, alert, with orientation to person, place and time. Behavior, mood, and affect are within normal limits. Vital Signs: 16:16 BP 172 / 110; Pulse 99; Resp 16; Temp 97.8; Pulse Ox 100% on R/A; Weight 68.04 kg; cm10 Height 5 ft. 5 in. ; Pain 0/10; 19:20 BP 169 / 101; Pulse 87; Resp 17 S; Pulse Ox 100% on R/A; lg3 16:16 Body Mass Index 24.96 (68.04 kg, 165.1 cm) cm10 16:16 Pain Scale: Adult cm10 MDM: 16:24 Medical Screening Exam initiated sd2 16:25 Differential Diagnosis STI, UTI, BV among others. Data reviewed: vital signs, nurses sd2 notes, lab test result(s). Counseling: I had a detailed discussion with the patient and/or guardian regarding the historical points, exam findings, and any diagnostic results supporting the discharge/admit diagnosis, lab results, the need for outpatient follow up, to return to the emergency department if symptoms worsen or persist or if there are any questions or concerns that arise at home. ED course: Pt advised of testing time frames and offered prophylactic treatment. States she is not concerned for STI and would like to await the results. . 19:02 ED course: Wet prep positive for BV. Will place on Flagyl. Pt advised. Verbalizes sd2 understanding of dc plan and strict return precautions. . 12/26 16:25 Order name: Urinalysis w/ reflexes; Complete Time: 18:10 sd2 02/22 16:25 Order name: GC (Fran/Chl) Probe URINE sd2 02/22 16:25 Order name: Wet Prep; Complete Time: 19:02 sd2 Administered Medications: No medications were administered Disposition Summary: 02/23/24 19:03 Discharge Ordered Problem: new sd2 Symptoms: have improved sd2 Condition: Stable sd2 Diagnosis - Bacterial vaginosis sd2 - Concern for sexually transmitted infection without diagnosis sd2 Followup: sd2 - With: Private Physician - When: 2 - 3 days - Reason: Recheck today's complaints, Continuance of care, Re-evaluation by your physician Discharge Instructions: - Discharge Summary Sheet sd2 - Bacterial Vaginosis sd2 Forms: - Medication Reconciliation Form sd2 - Antibiotic Education sd2 - Prescription Opioid Use sd2 - Patient Portal Instructions sd2 - Leadership Thank You Letter sd2 Prescriptions: - Metronidazole 500 mg Oral tablet - take 1 tablet ORAL route 2 times per day for 7 days; 14 tablet; Refills: 0, sd2 Product Selection Permitted Signatures: Dispatcher [employer] Willa Tracey MD MD sd2 April Li RN RN cm10
[2024-02-23 19:38] VITALS: TEMP 97.8; O2SAT 100
[2024-02-23 19:39] VITALS: BP 169/101
[2024-02-26 23:48] LABS: C.trachomatis RNA,TMA Not Detected (Not Detected); N.gonorrhoeae RNA,TMA Not Detected (Not Detected)
== END 2024-02-23 19:23 | disposition home or self-care (01) ==
LOC: ER 15:11
DX: O23.591 Infection of other part of genital tract in pregnancy, first trimester (principal); B96.89 Other specified bacterial agents as the cause of diseases classified elsewhere; Z3A.08 8 weeks gestation of pregnancy
CPT/HCPCS: 81001; 87210; 87490; 87590; 99283

== ENCOUNTER 2024-03-12 18:41 | Emergency (ER) | payer OTHER ==
[2024-03-12] MEDS ORDERED: NA CHLORIDE 0.9% 1,000 ML ONE (20:44)
[2024-03-12] MEDS ORDERED: FAMOTIDINE 20 MG/2 ML VIAL IV ONE (20:44)
[2024-03-12 20:52] LABS: Absolute Basophils 0.1 K/uL (0-0.5); Absolute Eosinophils 0.1 K/uL (0-0.5); Absolute Lymphocytes (CBC) 1.8 K/uL (0.7-4.9); Absolute Monocytes 0.2 K/uL (0.1-1.3); Eosinophils % 0.8 % (0-4.4); Hematocrit 38.4 % (36.0-45.0); Hemoglobin 12.7 g/dL (12.0-15.0); Lymphocytes % 24.7 % (15.3-44.8); MCH 27.2 pg (27.0-35.0); MCHC 33.1 g/dL (32.0-36.0); MCV 82.3 fL (80-100); Monocytes % 3.4 % (3.3-12.3); Neutrophils % 70.1 % (41.7-73.7); Platelets 387 thou/uL (152-406); RBC Red Blood Cell Count 4.67 M/uL (3.86-4.86); Red Cell Distribution Width 16.7 % (12.1-15.2)
[2024-03-12 20:56] LABS: Specific Gravity > 1.030 (1.005-1.030)
[2024-03-12] MEDS ORDERED: PROMETHAZINE INJ 25 MG/ML AMP ONE (21:08)
[2024-03-12 21:55] LABS: Specific Gravity > 1.030 (1.005-1.030); Sqamous Epithelial <5 /HPF (None Seen); Urine Bacteria None Seen /HPF (<20); Urine Bilirubin NEGATIVE (Negative); Urine Blood 1+ (Negative); Urine Clarity Clear (Clear); Urine Color Yellow (Yellow); Urine Culture Reflex Order NOT NEEDED; Urine Glucose 4+ (Over) (Negative); Urine Ketones TRACE (Negative); Urine Microscopic Reflex YN ORDER UMIC; Urine Mucus Slight /HPF (None Seen); Urine Nitrite NEGATIVE (Negative); Urine Protein 3+ (Negative); Urine Urobilinogen Normal (Normal); Urine WBC <5 /HPF (<5); Urine WBC Clump Rare /HPF (None Seen); Urine pH 6.5 (5.0-7.0)
--- NOTE | 2024-03-12 22:30 | ER ---
Nurse's Notes [facility] Name: Sharad Velarde Age: 28 yrs Sex: Female : 1995 Arrival Date: 03/12/2024 Time: 18:41 Bed 8 Private MD: Diagnosis: Hyperglycemia, unspecified;Vomiting of , unspecified Presentation: 03/12 19:15 Chief complaint: Patient states: Decreased appetite X 5 days. Pt states that she is 9 cm10 weeks and has been having some acid reflux. Coronavirus screen: Client denies travel out of the [place] in the last 14 days. Ebola Screen: Patient denies travel to an Ebola-affected area in the 21 days before illness onset. Initial Sepsis Screen: Does the patient meet any 2 criteria? HR > 90 bpm. Does the patient have a suspected source of infection? No. Patient's initial sepsis screen is negative. Risk Assessment: Do you want to hurt yourself or someone else? Patient reports no desire to harm self or others. Onset of symptoms was March 07, 2024. 19:15 Method Of Arrival: Ambulatory cm10 19:15 Acuity: PENNY 3 cm10 Triage Assessment: 19:18 General: Appears in no apparent distress. uncomfortable, Behavior is calm, cooperative, cm10 appropriate for age. Neuro: No deficits noted. Level of Consciousness is awake, alert, obeys commands, Oriented to person, place, time, situation, Appropriate for age. Respiratory: No deficits noted. Airway is patent Respiratory effort is even, unlabored, Respiratory pattern is regular, symmetrical. 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 - Infectious Disease History:: Denies. - Social history:: Smoking status: Patient denies any tobacco usage or history of. Screenin:30 [facility] ED Fall Risk Assessment (Adult) History of falling in the last 3 months, br2 including since admission No falls in past 3 months (0 pts) Confusion or Disorientation No (0 pts) Intoxicated or Sedated No (0 pts) Impaired Gait No (0 pts) Mobility Assist Device Used No (0 pt) Altered Elimination No (0 pt) Score/Fall Risk Level 0 - 2 = Low Risk Oriented to surroundings. Abuse screen: Denies threats or abuse. Denies injuries from another. Nutritional screening: No deficits noted. Nutritional screening: No deficits noted. Tuberculosis screening: No symptoms or risk factors identified. Assessment: 20:30 Reassessment: Patient and/or family updated on plan of care and expected duration. Pain br2 level reassessed. Patient is alert, oriented x 3, equal unlabored respirations, skin warm/dry/pink. General: Appears in no apparent distress. comfortable, Behavior is calm, cooperative. Pain: Denies pain. Neuro: [place] Agitation-Sedation Scale (RASS): 0 - Alert and Calm Level of Consciousness is awake, alert, obeys commands, Oriented to person, place, time, situation. Cardiovascular: Capillary refill < 3 seconds. Respiratory: Airway is patent Respiratory effort is even, unlabored, Respiratory pattern is regular, symmetrical. GI: Reports nausea, vomiting, since 03/05/2024. : No signs and/or symptoms were reported regarding the genitourinary system. EENT: No signs and/or symptoms were reported regarding the EENT system. Derm: No signs and/or symptoms reported regarding the dermatologic system. Musculoskeletal: No signs and/or symptoms reported regarding the musculoskeletal system. Reports ALL OVER. Vital Signs: 19:15 BP 129 / 89; Pulse 108; Resp 18; Temp 97.5(TE); Pulse Ox 100% on R/A; Weight 63.05 kg; cm10 Height 5 ft. 5 in. ; Pain 7/10; 22:42 BP 177 / 109; Pulse 98; Resp 18; Pulse Ox 100% ; Pain 0/10; br2 19:15 Body Mass Index 23.13 (63.05 kg, 165.1 cm) cm10 19:15 Pain Scale: Adult cm10 22:42 Pain Scale: Adult br2 ED Course: 18:43 Patient arrived in ED. ra3 18:53 Nati Xavier FNP-C is PHCP. kb 18:53 Temo Jimenes MD is Attending Physician. kb 19:17 Triage completed. cm10 19:18 Arm band placed on right wrist. Patient placed in waiting room. cm10 20:30 Patient has correct armband on for positive identification. Bed in low position. Call br2 light in reach. Side rails up X 1. Provided Education on: PLAN OF CARE. 20:30 Inserted saline lock: 20 gauge in right antecubital area, using aseptic technique. br2 Blood collected. Flushed with 10 mL NS. 20:41 Belén Herman, MANISHA is Primary Nurse. br2 20:42 Abo/rh Typing Sent. br2 20:42 Basic Metabolic Panel Sent. br2 20:42 CBC with Diff Sent. br2 20:42 Test, Urine Sent. br2 20:42 Quantitative Hcg Sent. br2 20:42 Urinalysis w/ reflexes Sent. br2 21:13 Warm blanket given. jj7 23:01 No provider procedures requiring assistance completed. IV discontinued, intact, br2 bleeding controlled, No redness/swelling at site. Pressure dressing applied. Administered Medications: 20:48 Drug: Famotidine IVP 20 mg IVP once; dilute with 10 mL 0.9% NaCl; give over 2 minutes br2 Route: IVP; Site: right antecubital; 21:30 Follow up: Response: No adverse reaction br2 22:44 Follow up: Response: Marked relief of symptoms jj7 20:48 Drug: NS 0.9% IV 1000 ml IV at 1000 ml once; to be given as a bolus over 60 minutes br2 Route: IV; Rate: 1000 ml; Site: right antecubital; 22:44 Follow up: IV Status: Completed infusion jj7 22:49 Follow up: Response: No adverse reaction; IV Status: Completed infusion; IV Intake: br2 1000ml 21:12 Drug: Promethazine IVP 6.25 mg IVP once Route: IVP; Site: right antecubital; jj7 22:35 Follow up: Response: Marked relief of symptoms; Nausea is decreased jj7 Medication: 23:01 VIS not applicable for this client. br2 Intake: 22:49 IV: 1000ml; Total: 1000ml. br2 Outcome: 22:29 Discharge ordered by . kb 23:01 Discharged to home ambulatory, br2 23:01 Condition: good 23:01 Discharge instructions given to patient, Instructed on discharge instructions, Demonstrated understanding of instructions, follow-up care, 23:14 Patient left the ED. br2 Signatures: Nati Xavier, MACHINE REPAIRER MAINTENANCE-C MACHINE REPAIRER MAINTENANCE-Rosette Steven RN RN jj7 April Li RN RN cm10 Geri Milner ra3 Belén Herman RN RN br2
--- NOTE | 2024-03-12 22:30 | EDPHYS ---
Physician Documentation [facility] Name: Sharad Velarde Age: 28 yrs Sex: Female : 1995 Arrival Date: 03/12/2024 Time: 18:41 Bed 8 Private MD: ED Physician Temo Jimenes HPI: 03/12 19:11 This 28 yrs old Black Female presents to ER via Unassigned with complaints of Decreased kb Appetite - x5days 9wks preg. 19:11 Pt is a 28 year old female who presents for nausea and GERD that started 5 days ago. kb States she hasn't been able to eat due to symptoms. States she is approx 9 weeks and has similar symptoms with previous pregnancies. A2 LMP 12/26/23. States she normally takes diclegis for this but doesn't have any. 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 - Infectious Disease History:: Denies. - Social history:: Smoking status: Patient denies any tobacco usage or history of. ROS: 19:11 Constitutional: As per HPI kb Exam: 19:11 Constitutional: This is a well developed, well nourished patient who is awake, alert, kb and in no acute distress. Head/Face: Normocephalic, atraumatic. ENT: Moist Mucous membranes Cardiovascular: Regular rate Respiratory: Respirations even and unlabored. No increased work of breathing. Talking in full sentences Abdomen/GI: Soft, non-tender. No distention Skin: Warm, dry with normal turgor. Normal color. MS/ Extremity: Pulses equal, no cyanosis. Neurovascular intact. Full, normal range of motion. Neuro: Awake and alert, GCS 15, oriented to person, place, time, and situation. Vital Signs: 19:15 BP 129 / 89; Pulse 108; Resp 18; Temp 97.5(TE); Pulse Ox 100% on R/A; Weight 63.05 kg; cm10 Height 5 ft. 5 in. ; Pain 7/10; 22:42 BP 177 / 109; Pulse 98; Resp 18; Pulse Ox 100% ; Pain 0/10; br2 19:15 Body Mass Index 23.13 (63.05 kg, 165.1 cm) cm10 19:15 Pain Scale: Adult cm10 22:42 Pain Scale: Adult br2 MDM: 18:55 Medical Screening Exam initiated kb 22:28 Differential diagnosis: hyperglycemia, abnormal electrolytes, uti, dehydration. Data kb reviewed: vital signs, nurses notes. Counseling: I had a detailed discussion with the patient and/or guardian regarding the historical points, exam findings, and any diagnostic results supporting the discharge/admit diagnosis, lab results, the need for outpatient follow up, a family practitioner, to return to the emergency department if symptoms worsen or persist or if there are any questions or concerns that arise at home. 22:28 Test considered but Not performed: Ultrasound US considered but pt denies abd pain, kb vaginal bleeding. 22:55 ED course: Pt has a history of HTN and has been prescribed lisinopril and amlodipine, kb but states she does not take them. Pt is asymptomatic of BP. Pt is under 20 weeks gestation so a diagnosis of preeclampsia cannot be made. Discussed case with Dr Harkins who recommends follow up with OB. Discussed this with pt and importance of calling her high pressure firer in the morning for blood pressure management. Pt agrees with follow up plan. 03/12 19:14 Order name: Abo/rh Typing; Complete Time: 21:54 kb 03/12 19:14 Order name: Basic Metabolic Panel; Complete Time: 21:47 kb 03/12 19:14 Order name: CBC with Diff; Complete Time: 20:57 kb 03/12 19:14 Order name: Test, Urine; Complete Time: 20:56 kb 03/12 19:14 Order name: Quantitative Hcg; Complete Time: 21:47 kb 03/12 19:14 Order name: Urinalysis w/ reflexes; Complete Time: 21:56 kb 03/12 19:14 Order name: IV Saline Lock; Complete Time: 20:42 kb 03/12 19:14 Order name: Labs collected and sent; Complete Time: 20:42 kb 03/12 19:14 Order name: NPO; Complete Time: 20:42 kb 03/12 22:26 Order name: PO challenge; Complete Time: 22:34 kb Administered Medications: 20:48 Drug: Famotidine IVP 20 mg IVP once; dilute with 10 mL 0.9% NaCl; give over 2 minutes br2 Route: IVP; Site: right antecubital; 21:30 Follow up: Response: No adverse reaction br2 22:44 Follow up: Response: Marked relief of symptoms jj7 20:48 Drug: NS 0.9% IV 1000 ml IV at 1000 ml once; to be given as a bolus over 60 minutes br2 Route: IV; Rate: 1000 ml; Site: right antecubital; 22:44 Follow up: IV Status: Completed infusion jj7 22:49 Follow up: Response: No adverse reaction; IV Status: Completed infusion; IV Intake: br2 1000ml 21:12 Drug: Promethazine IVP 6.25 mg IVP once Route: IVP; Site: right antecubital; jj7 22:35 Follow up: Response: Marked relief of symptoms; Nausea is decreased jj7 Disposition Summary: 03/12/24 22:29 Discharge Ordered Notes: Location: Home kb Condition: Stable kb Diagnosis - Hyperglycemia, unspecified kb - Vomiting of , unspecified kb Followup: kb - With: Emergency Department - When: As needed - Reason: Worsening of condition Followup: kb - With: Private Physician - When: 2 - 3 days - Reason: Recheck today's complaints, Continuance of care, Re-evaluation by your physician Discharge Instructions: - Discharge Summary Sheet kb - Morning Sickness, [id number] kb - Hyperglycemia, [id number] kb Forms: - Medication Reconciliation Form kb - Antibiotic Education kb - Prescription Opioid Use kb - Patient Portal Instructions kb - Leadership Thank You Letter kb Prescriptions: - Diclegis 10-10 mg Oral tablet, delayed release (enteric coated) - take 1 tablet ORAL route every evening; 12 tablet; Refills: 0, Product kb Selection Permitted Addendum: 03/16/2024 10:06 Co-signature as Attending Physician, Temo Jimenes MD I reviewed the patient's care r n provided by the Advanced Practice Provider and agree with the diagnosis and treatment plan. Signatures: Dispatcher [employer] EDMS Nati Xavier, CLIP COATER-C CLIP COATER-Ckb Temo Jimenes MD MD rn Rosette Colby, RN RN jj7 April Li, RN RN cm10 Belén Herman, RN RN br2 Corrections: (The following items were deleted from the chart) 03/12 19:15 19:15 ABO/RH TYPING+BB.LAB.BRZ ordered. EDMS EDMS 19:15 19:15 BASIC METABOLIC PANEL+C.LAB.BRZ ordered. EDMS EDMS 19:15 19:15 CBC+H.LAB.BRZ ordered. EDMS EDMS 19:15 19:15 Test, Urine+UC.LAB.BRZ ordered. EDMS EDMS 19:15 19:15 QUANTITATIVE HCG+C.LAB.BRZ ordered. EDMS EDMS 19:15 19:15 Urinalysis+U.LAB.BRZ ordered. EDMS EDMS 22:30 19:11 Pt is a 28 year old female who presents for nausea and GERD that started 5 days kb ago. States she hasn't been able to eat due to symptoms. States she is approx 9 weeks and has similar symptoms with previous pregnancies. A2 LMP 12/26/23. . kb
[2024-03-13 17:13] VITALS: BP 177/109; TEMP 97.5; O2SAT 100
== END 2024-03-12 23:14 | disposition home or self-care (01) ==
LOC: ER 18:41
DX: O24.011 Pre-existing type 1 diabetes mellitus, in pregnancy, first trimester (principal); O16.1 Unspecified maternal hypertension, first trimester; Z3A.11 11 weeks gestation of pregnancy
CPT/HCPCS: 96361; 85025; 81001; 80048; 36415; 86900; 81025; 86901; 84702; 96375; 96374; 99284; J2550; J7030

== ENCOUNTER 2024-04-07 12:39 | Emergency (ER) | payer OTHER ==
[2024-04-07] MEDS ORDERED: INSULIN REGULAR (HUMAN) 100 UNIT/ML ONE ×2 (13:05→14:00)
[2024-04-07] MEDS ORDERED: NA CHLORIDE 0.9% 1,000 ML ONE ×2 (13:06→14:00)
[2024-04-07 13:09] LABS: Absolute Monocytes 0.3 K/uL (0.1-1.3); Absolute Neutrophil 2.8 K/uL (1.8-8.0); Basophils % 0.7 % (0-1.3); Eosinophils % 0.8 % (0-4.4); Hematocrit 37.4 % (36.0-45.0); Hemoglobin 12.8 g/dL (12.0-15.0); Lymphocytes % 23.2 % (15.3-44.8); MCH 28.7 pg (27.0-35.0); MCHC 34.2 g/dL (32.0-36.0); MCV 83.8 fL (80-100); MPV 8.4 fL (7.6-11.3); Monocytes % 7.3 % (3.3-12.3); Nucleated Red Blood Cells % 0.1 % (0-0); Platelets 310 thou/uL (152-406); RBC Red Blood Cell Count 4.46 M/uL (3.86-4.86); Red Cell Distribution Width 14.3 % (12.1-15.2)
--- NOTE | 2024-04-07 13:34 | RAD REPORT ---
EXAM: 1St Trimest Single 1St Fetus HISTORY: ABD CRAMPING, COMPARISON: None TECHNIQUE: Multiple grayscale and color Doppler images were obtained in a transabdominal pelvic ultra sound. Spectral analysis of the Doppler waveforms of the ovaries were performed. FINDINGS: UTERUS: There is an intrauterine gestational sac with fetus. [place]-rump length: 6.3 cm which estimates gestational age at 12 week 5 day. A heart rate is detected at 139 bpm. No evidence of subchorionic hemorrhage. No free fluid is seen in the pelvis. RIGHT OVARY: Nonvisualized. LEFT OVARY: Nonvisualized IMPRESSION: Single live intrauterine with estimated age of 12 week 5 day.
[2024-04-07 13:42] LABS: Albumin 2.2 g/dL (3.4-5.0); Albumin/Globulin Ratio 0.4 (1.1-1.8); Alkaline Phosphatase 106 U/L (45-117); Anion Gap 15.2 mEq/L (5.0-15.0); BUN Blood Urea Nitrogen 12 mg/dL (7-18); Bicarbonate 22 mEq/L (21-32); Bilirubin Direct 0.2 mg/dL (0-0.2); Bilirubin Indirect, Calculated 0.7 mg/dL (0.2-0.8); Bilirubin Total 0.9 mg/dL (0.2-1.0); Globulin 4.9 g/dL (2.3-3.5); Glomerular Filtration Rate 83 ml/min (=/>90); HCG, Quantitative 100363 mIU/mL (1-3); Lipase 15 U/L (13-75); Magnesium 2.2 mg/dL (1.6-2.4); Phosphorus 4.3 mg/dL (2.5-4.9); Potassium 4.2 mEq/L (3.5-5.1); Protein, Total 7.1 g/dL (6.4-8.2); Sodium Level 129 mEq/L (136-145)
[2024-04-07 13:43] LABS: ALT/SGPT < 14 U/L (13-56); AST/SGOT < 10 U/L (15-37)
[2024-04-07 13:44] LABS: Glucose Level 452 mg/dL (74-106)
[2024-04-07 15:52] LABS: Anion Gap 9.9 mEq/L (5.0-15.0); Potassium 3.9 mEq/L (3.5-5.1)
--- NOTE | 2024-04-07 16:09 | ER ---
Nurse's Notes [facility] Name: Sharad Velarde Age: 28 yrs Sex: Female : 1995 Arrival Date: 04/07/2024 Time: 12:39 Bed 6 Private MD: Diagnosis: Type 1 diabetes mellitus with hyperglycemia;13 weeks gestation of Presentation: 04/07 12:52 Chief complaint: Been out of insulin for 2 days, c/o dizziness and abdominal pain hb 6-10/10, home blood sugar read HI. Pt is approx 3 months , , LMP 12/25, KATE 10/16. Coronavirus screen: At this time, the client does not indicate any symptoms associated with coronavirus-19. Ebola Screen: No symptoms or risks identified at this time. Initial Sepsis Screen: Does the patient meet any 2 criteria? No. Patient's initial sepsis screen is negative. Does the patient have a suspected source of infection? No. Patient's initial sepsis screen is negative. Risk Assessment: Do you want to hurt yourself or someone else? Patient reports no desire to harm self or others. Onset of symptoms was April 07, 2024. 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 - Infectious Disease History:: Denies. - Social history:: Smoking status: Patient denies any tobacco usage or history of. Screenin:46 [facility] ED Fall Risk Assessment (Adult) History of falling in the last 3 months, cm10 including since admission No falls in past 3 months (0 pts) Confusion or Disorientation No (0 pts) Intoxicated or Sedated No (0 pts) Impaired Gait No (0 pts) Mobility Assist Device Used No (0 pt) Altered Elimination No (0 pt) Score/Fall Risk Level 0 - 2 = Low Risk Oriented to surroundings, Maintained a safe environment, Hourly rounding (assess needs \T\ fall precautionary measures) done. Abuse screen: Denies threats or abuse. Denies injuries from another. Nutritional screening: No deficits noted. Tuberculosis screening: No symptoms or risk factors identified. Assessment: 13:08 General: Appears in no apparent distress. comfortable, Behavior is calm, cooperative. cm10 13:08 Pain: Denies pain. Neuro: No deficits noted. Level of Consciousness is awake, alert, cm10 obeys commands, Oriented to person, place, time, situation, Appropriate for age. Respiratory: No deficits noted. Airway is patent Respiratory effort is even, unlabored, Respiratory pattern is regular, symmetrical. Musculoskeletal: No deficits noted. Range of motion: intact in all extremities. 14:39 Reassessment: Patient appears in no apparent distress at this time. Patient and/or cm10 family updated on plan of care and expected duration. Pain level reassessed. Patient is alert, oriented x 3, equal unlabored respirations, skin warm/dry/pink. Patient states feeling better. Patient states symptoms have improved. 16:24 Reassessment: Patient appears in no apparent distress at this time. Patient and/or cm10 family updated on plan of care and expected duration. Pain level reassessed. Patient is alert, oriented x 3, equal unlabored respirations, skin warm/dry/pink. Patient states feeling better. Patient states symptoms have improved. Vital Signs: 12:52 BP 150 / 111; Pulse 108; Resp 18; Temp 98.4(O); Pulse Ox 100% on R/A; Weight 63.05 kg; hb Height 5 ft. 5 in. ; Pain 6/10; 13:30 BP 162 / 108; Pulse 98; Resp 20; Pulse Ox 100% on R/A; cm10 14:00 BP 163 / 103; Pulse 99; Resp 18; Pulse Ox 100% ; cm10 15:00 BP 157 / 99; Pulse 102; Resp 15; Pulse Ox 100% ; cm10 16:00 BP 138 / 88; Pulse 106; Resp 18; Pulse Ox 100% ; cm10 12:52 Body Mass Index 23.13 (63.05 kg, 165.1 cm) hb 12:52 Pain Scale: Adult hb ED Course: 12:41 Patient arrived in ED. ra3 12:42 Letitia Chaudhari PA-C is PHCP. sb4 12:42 Zelalem Harkins MD is Attending Physician. sb4 12:54 Triage completed. hb 12:56 April Li, RN is Primary Nurse. cm10 12:58 Arm band placed on. hb 13:08 Initial lab(s) drawn, by me, sent to lab. Inserted saline lock: 22 gauge in right hand, cm10 using aseptic technique. Blood collected. Flushed with 10 mL NS. 13:24 Patient has correct armband on for positive identification. Bed in low position. Call cm10 light in reach. Side rails up X2. Client placed on continuous cardiac and pulse oximetry monitoring. NIBP monitoring applied. director professional services on. 13:28 1St Trimest Single 1St Fetus In Process Unspecified. EDMS 16:08 Esther Card MD is Referral Physician. sb4 16:24 Provided Education on: Follow-up istructions. cm10 16:24 No provider procedures requiring assistance completed. IV discontinued, intact, cm10 bleeding controlled, No redness/swelling at site. Pressure dressing applied. Administered Medications: 13:22 Drug: Insulin Regular Human Sub-Q 5 units Sub-Q once {Co-Signature: ll1 (Francine Dejesus RN).} Route: Sub-Q; Site: abdomen; 13:46 Follow up: Response: No adverse reaction cm10 13:23 Drug: NS 0.9% IV 1000 ml IV at 1000 ml once; to be given as a bolus over 60 minutes cm10 Route: IV; Rate: 1000 ml; Site: right hand; 14:39 Follow up: Response: No adverse reaction; IV Status: Completed infusion; IV Intake: cm10 1000ml 14:08 Drug: NS 0.9% IV 1000 ml IV at 1000 ml once; to be given as a bolus over 60 minutes cm10 Route: IV; Rate: 1000 ml; Site: right hand; 15:47 Follow up: Response: No adverse reaction; IV Status: Completed infusion; IV Intake: kc6 1000ml 14:08 Drug: Insulin Regular Human Sub-Q 10 units Sub-Q once {Co-Signature: ss (daiana Soliz RN).} Route: Sub-Q; Site: abdomen; 15:08 Follow up: Response: No adverse reaction cm10 Medication: 13:46 VIS not applicable for this client. cm10 Intake: 14:39 IV: 1000ml; Total: 1000ml. cm10 15:47 IV: 1000ml; Total: 2000ml. kc6 Outcome: 16:08 Discharge ordered by MD. sb4 16:24 Discharged to home ambulatory, cm10 16:24 Condition: good 16:24 Discharge instructions given to patient, Instructed on discharge instructions, follow up and referral plans. medication usage, Demonstrated understanding of instructions, follow-up care, medications, Prescriptions given X 2, 16:25 Patient left the ED. cm10 16:32 Patient left the ED. cm10 Signatures: Dispatcher [employer] EDMS Johanna Gonzalez RN RN hb Campbell, Kaitlyn, RN RN Letitia Smith, PA-C PA-C April Arrington RN RN cm10 Geri Milner ra3 Francine Dejesus RN ll1 Florencia Soliz RN ss
--- NOTE | 2024-04-07 16:09 | EDPHYS ---
Physician Documentation [facility] Name: Sharad Velarde Age: 28 yrs Sex: Female : 1995 Arrival Date: 04/07/2024 Time: 12:39 Bed 6 Private MD: YAKOV Physician Zelalem Harkins HPI: 04/07 13:06 This 28 yrs old Black Female presents to ER via Ambulatory with complaints of High sb4 Blood Sugar. 13:06 The patient presents to the emergency department with abdominal pain, of the suprapubic sb4 area, high blood sugar. The estimated gestational age is 12 weeks. course: care: none, Leakage of Fluid: none appreciated, Ultrasound: the patient has not had an ultrasound, Risk/complications: type I diabetes, previous complications- miscarriages. Previous pregnancies:. patient reports that she has been out of her blood sugar for 2 days because she lost it. states she is currently only using a sliding scale insulin. she is approx 3 months without any care. is complaining of a burning sensation in her lower abdomen. she reports feeling very weak. 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 - Infectious Disease History:: Denies. - Social history:: Smoking status: Patient denies any tobacco usage or history of. ROS: 13:09 Constitutional: Positive for fatigue, malaise, sb4 13:09 Abdomen/GI: Positive for abdominal pain, 13:09 Neuro: Positive for dizziness, 13:09 All other systems are negative, Exam: 13:09 Head/Face: Normocephalic, atraumatic. Eyes: Extra-ocular motions intact. Periorbital sb4 areas with no swelling, redness, or edema. Respiratory: No increased work of breathing, no retractions or nasal flaring. Abdomen/GI: Soft, non-tender, no distension. Skin: Warm, dry with normal turgor. Normal color with no rashes, no lesions, and no evidence of cellulitis. 13:09 Constitutional: The patient appears alert, awake, obviously ill, 13:09 ENT: Mouth: Oral mucosa: dry, 13:10 Cardiovascular: Rate: tachycardic, Rhythm: regular, sb4 Vital Signs: 12:52 BP 150 / 111; Pulse 108; Resp 18; Temp 98.4(O); Pulse Ox 100% on R/A; Weight 63.05 kg; hb Height 5 ft. 5 in. ; Pain 6/10; 13:30 BP 162 / 108; Pulse 98; Resp 20; Pulse Ox 100% on R/A; cm10 14:00 BP 163 / 103; Pulse 99; Resp 18; Pulse Ox 100% ; cm10 15:00 BP 157 / 99; Pulse 102; Resp 15; Pulse Ox 100% ; cm10 16:00 BP 138 / 88; Pulse 106; Resp 18; Pulse Ox 100% ; cm10 12:52 Body Mass Index 23.13 (63.05 kg, 165.1 cm) hb 12:52 Pain Scale: Adult hb MDM: 12:46 Medical Screening Exam initiated sb4 16:08 Data reviewed: vital signs, nurses notes, lab test result(s), radiologic studies, and sb4 as a result, I will discharge patient. Counseling: I had a detailed discussion with the patient and/or guardian regarding the historical points, exam findings, and any diagnostic results supporting the discharge/admit diagnosis, the presence of at least one elevated blood pressure reading (>120/80) during this emergency department visit, lab results, radiology results, the need for outpatient follow up, for definitive care, an OB/Gyne specialist, to return to the emergency department if symptoms worsen or persist or if there are any questions or concerns that arise at home. 04/07 12:51 Order name: Basic Metabolic Panel; Complete Time: 13:48 sb4 04/07 12:51 Order name: CBC with Diff; Complete Time: 13:20 sb4 04/07 12:51 Order name: Hepatic Function; Complete Time: 13:48 sb4 04/07 12:51 Order name: Lipase; Complete Time: 13:48 sb4 04/07 12:51 Order name: Magnesium; Complete Time: 13:48 sb4 04/07 12:51 Order name: Phosphorus; Complete Time: 13:48 sb4 04/07 12:51 Order name: HCG-Quantitative; Complete Time: 13:48 sb4 04/07 13:01 Order name: Glucose, Ancillary Testing; Complete Time: 13:02 EDMS 04/07 13:55 Order name: BMP: after 2nd liter; Complete Time: 16:05 sb4 04/07 14:10 Order name: Glucose, Ancillary Testing; Complete Time: 14:10 EDMS 04/07 13:25 Order name: 1St Trimest Single 1St Fetus; Complete Time: 13:36 EDMS 04/07 12:51 Order name: Cardiac monitoring; Complete Time: 13:24 sb4 04/07 12:51 Order name: IV Saline Lock; Complete Time: 13:07 sb4 04/07 12:51 Order name: NPO; Complete Time: 13:08 sb4 04/07 12:51 Order name: O2 Per Protocol; Complete Time: 13:07 sb4 04/07 12:51 Order name: O2 Sat Monitoring; Complete Time: 13:08 sb4 Administered Medications: 13:22 Drug: Insulin Regular Human Sub-Q 5 units Sub-Q once {Co-Signature: ll1 (Francine Dejesus cm10 RN).} Route: Sub-Q; Site: abdomen; 13:46 Follow up: Response: No adverse reaction cm10 13:23 Drug: NS 0.9% IV 1000 ml IV at 1000 ml once; to be given as a bolus over 60 minutes cm10 Route: IV; Rate: 1000 ml; Site: right hand; 14:39 Follow up: Response: No adverse reaction; IV Status: Completed infusion; IV Intake: cm10 1000ml 14:08 Drug: NS 0.9% IV 1000 ml IV at 1000 ml once; to be given as a bolus over 60 minutes cm10 Route: IV; Rate: 1000 ml; Site: right hand; 15:47 Follow up: Response: No adverse reaction; IV Status: Completed infusion; IV Intake: kc6 1000ml 14:08 Drug: Insulin Regular Human Sub-Q 10 units Sub-Q once {Co-Signature: ss (daiana Soliz RN).} Route: Sub-Q; Site: abdomen; 15:08 Follow up: Response: No adverse reaction cm10 Disposition: 16:15 Chart complete. sb4 Disposition Summary: 04/07/24 16:08 Discharge Ordered Notes: Location: Home sb4 Problem: new sb4 Symptoms: have improved sb4 Condition: Stable sb4 Diagnosis - Type 1 diabetes mellitus with hyperglycemia sb4 - 13 weeks gestation of sb4 Followup: sb4 - With: Esther Card MD - When: 2 - 3 days - Reason: Further diagnostic work-up, Recheck today's complaints, Re-evaluation by your physician Discharge Instructions: - Discharge Summary Sheet sb4 - Abdominal Pain During sb4 - Preeclampsia and Eclampsia sb4 Forms: - Patient Portal Instructions sb4 - Leadership Thank You Letter sb4 Prescriptions: - Novolog Mix 70-30 U-100 Insulin 100 unit/mL (70-30) Subcutaneous solution - inject 5 units SUBCUTANEOUS route Use as Directed dosage per sliding scale - sb4 inject 2 units subq for every 30 units greater than 100 BGL and 5 units for every 20 grams of carbs ingested; 10 milliliter; Refills: 0, Product Selection Permitted - insulin glargine 100 unit/mL Subcutaneous solution - inject 25 unit SUBCUTANEOUS route every evening; 10 milliliter; Refills: 0, sb4 Product Selection Permitted Signatures: Dispatcher [employer] EDMS Johanna Gonzalez RN RN hb Brown, Sophia, PASonnyC PASonnyC sb4 April Li RN RN cm10 Loreta Bower RN kc6 Francine Dejesus RN ll1 Florencia Soliz RN Corrections: (The following items were deleted from the chart) 12:52 12:52 BASIC METABOLIC PANEL+C.LAB.BRZ ordered. EDMS EDMS 12:52 12:52 CBC+H.LAB.BRZ ordered. EDMS EDMS 12:52 12:52 HEPATIC FUNCTION+C.LAB.BRZ ordered. EDMS EDMS 12:52 12:52 LIPASE+C.LAB.BRZ ordered. EDMS EDMS 12:52 12:52 MAGNESIUM+C.LAB.BRZ ordered. EDMS EDMS 12:52 12:52 PHOSPHORUS+C.LAB.BRZ ordered. EDMS EDMS 12:52 12:52 QUANTITATIVE HCG+C.LAB.BRZ ordered. EDMS EDMS 12:52 12:52 1st Trimest Single 1st Fetus+US.RAD.BRZ ordered. EDMS EDMS 13:10 13:09 Head/Face: Normocephalic, atraumatic. Eyes: Extra-ocular motions intact. sb4 Periorbital areas with no swelling, redness, or edema. Respiratory: No increased work of breathing, no retractions or nasal flaring. Abdomen/GI: Soft, non-tender, no distension. Skin: Warm, dry with normal turgor. Normal color with no rashes, no lesions, and no evidence of cellulitis. sb4 13:25 12:59 OB Limited ordered. EDMS EDMS 13:56 13:56 BASIC METABOLIC PANEL+C.LAB.BRZ ordered. EDMS EDMS
[2024-04-07 16:30] VITALS: TEMP 98.4; O2SAT 100
[2024-04-07 16:34] VITALS: BP 138/88
== END 2024-04-07 16:32 | disposition home or self-care (01) ==
LOC: ER 12:39
DX: O24.011 Pre-existing type 1 diabetes mellitus, in pregnancy, first trimester (principal); E10.65 Type 1 diabetes mellitus with hyperglycemia; Z79.4 Long term (current) use of insulin; Z3A.13 13 weeks gestation of pregnancy
CPT/HCPCS: 96361; 85025; 80048 ×2; 36415; 83735; 84100; 82947 ×2; 80076; 84702; 83690; 76801; 96360; 96372; 99285; J7030 ×2

== ENCOUNTER 2024-06-09 17:50 | Emergency (ER) | payer OTHER ==
--- OUTSIDE RECORDS SUMMARY | 2024-06-09 17:54 | XMS REPORT | Continuity of Care Document ---
Author Name Unknown Address [address] [place] [address] [facility] Address 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 Role Phone JOHANA KOENIG Primary Care Physician Ly vailable VINITA GARRISON Attending Clinician Unavailable Vinita Christopher Attending Clinician MAUREEN MCKEON Attending Clinician Unavailab Maureen Duque DO Attending Clinician [phone] NENA GREGORY Attending Clinician Unavailab NENA Conte Attending Clinician Unavailab le PEDRO LUIS FLROES Attending Clinician Unavailab Will Sinclair Attending Clinician [phone] SARAH ARREGUIN Attending Clinician Unavailable DEVAUGHN DEWITT Attending Clinician Un available REGINE GREEN Attending Clinician Unavail able VINITA GARRISON Admitting Clinician Unavailable PEDRO LUIS FLORES Admitting Clinician Unavailab le Payers Payer Name Policy Type Policy Number Effective Date Expirati on Date Source [place] [employer] [id number] 2023 00:00:00 [employer] [place] OUT OF [place] [id number] 2023 00:00:00 MEDICAID PENDING PENDING 2023 00:00:00 2023 00:00:00 Problems Condition Name Condition Details Condition Category Status Onset Date Resolution Date Last Treatment Date Treating Clinician Comments Source Vaginal bleeding affecting early Vaginal bleeding affecting early Disease Active 08-20 00:00: 00 [facility] Hyperglyce jamal Hyperglyce jamal Disease Active 08-20 00:00: 00 [facility] Essential hypertensi on Essential hypertensi on Disease Active 08-20 00:00: 00 [facility] Subchorion ic hemorrhage of placenta in first trimester Subchorion ic hemorrhage of placenta in first trimester Disease Active 08-20 00:00: 00 [facility] Threatened Threatened Disease Active 08-20 00:00: 00 [facility] SORE THROAT SORE THROAT Active 12/30/2022 [facility] Diagnosis Active 2022-02 08:00: 00 2023-01-25 08:47:00 Mohan Tolentino BLOOD PRESSURE CHEST PAIN BLOOD PRESSURE CHEST PAIN Active 02/03/2022 [facility] Diagnosis Active 2021-02 00:00: 00 2022-02-15 04:49:00 Mohan Tolentino Allergies, Adverse Reactions, Alerts Allergy Name Allergy Type Status Severity Reaction(s) Onset Date Inactive Date Treating Clinician Comments Source ORANGE DRUG INGREDI Active Unknown-Cmnt 08-20 00:00: 00 [facility] Novato Propensi ty to adverse reaction s Active Unknown - See comments 08-20 00:00: 00 [facility] Morphine Propensi ty to adverse reaction s Active Anaphylaxis 08-06 00:00: 00 [facility] Ibuprofe n Propensi ty to adverse reaction s Active Hives 08-06 00:00: 00 [facility] MORPHINE DRUG INGREDI Active Anaphylaxis 08-06 00:00: 00 [facility] IBUPROFE N DRUG INGREDI Active Hives 08-06 00:00: 00 [facility] morphine morphine Active Mohan Tolentino Motrin Motrin Active Mohan Tolentino Social History Social Habit Start Date Stop Date Quantity Comments Source Sexual orientation [facility] Sex assigned at 1995 00:00:00 1995 00:00:00 [facility] Smoking Status Start Date Stop Date Source Tobacco smoking consumption unknown [facility] Tobacco smoking status Memfidel Tolentino Medications Ordered Medication Name Filled Medication Name Start Date Stop Date Current Medication? Ordering Clinician Indication Dosage Frequency Signature (SIG) Comments Components Source NaCl 0.9% (NS) bolus infusion 2,028 mL 2023-02 19:30: 00 01-03 20:30 :00 No [id number] 30mL/kg at 999 mL/hr, 2,028 mL (30 mL/kg ?67.6 kg), IV Infusion, ONCE, 1 dose, On Tue01/04/24 at 1330, FAISAL [facility] D5W 0.45% NaCl (1/2NS) 1 L + KCL 20 mEq 2023-02 19:05: 25 Yes [id number] IV Infusion, at 200 mL/hr, PRN - SEE INSTRUCTIO NS, Starting on Tue01/04/24 at 1305, Until Discontinu ed, FAISAL, Blood glucose control [facility] insulin regular human (HUMULIN R) injection 10 Units 2023-02 06:00: 00 12-31 05:15 :00 No 10U 10 Units, IV Push, ONCE, 1 dose, On 01/01/24 at 0100, FAISAL, Indication for insulin: Hyperglyce jamal [facility] insulin glargine (LANTUS U-100) injection 20 Units 2023-02 04:45: 00 12-31 04:13 :00 No 20U 20 Units, Subcutaneo us, ONCE, 1 dose, On 12/31/23 at 2345, FAISAL [facility] NaCl 0.9% (NS) bolus infusion 1,000 mL 2023-02 04:00: 00 12-31 05:03 :00 No 1000mL at 999 mL/hr, 1,000 mL, IV Infusion, ONCE, 1 dose, On 12/31/23 at 2300, STAT [facility] insulin glargine U-300 conc (TOUJEO MAX U-300 SOLOSTAR) 300 unit/mL (3 mL) InPn 2023-02 00:00: 00 01-30 05:59 :00 No [id number] 9101 25U inject 25 Units under the skin every evening for 30 days. [facility] fluconazole (DIFLUCAN) tablet 150 mg 09-21 08:15: 00 09-21 07:27 :00 No 150mg 150 mg, Oral, ONCE, 1 dose, On Jackie 09/22/23 at 0315, FAISAL, Reason for Anti-Infec tive: Documented Infection, Documented Infection Site: Pelvic, Duration of Therapy: Once (ED) [facility] NaCl 0.9% (NS) bolus infusion 1,000 mL 08-21 02:30: 00 08-21 05:00 :00 No 1000mL at 999 mL/hr, 1,000 mL, IV Infusion, ONCE, 1 dose, On 08/21/23 at 2130, [facility] acet[facility] (TYLENOL) tablet 650 mg 08-21 02:00: 00 08-21 02:01 :00 No 650mg 650 mg, Oral, ONCE, 1 dose, On 08/21/23 at 2100, [facility] ondansetron (ZOFRAN (PF)) injection 4 mg 08-10 05:00: 00 08-10 04:18 :00 No 4mg 4 mg, Slow IV Push, ONCE, 1 dose, On Jackie 08/11/23 at 0000, [facility] acetaminoph en (TYLENOL) tablet 1,000 mg 08-10 05:00: 00 08-10 04:18 :00 No 1000mg 1,000 mg, Oral, ONCE, 1 dose, On Tue08/11/23 at 0000, [facility] clindamycin (CLEOCIN HCL) capsule 300 mg 08-10 04:15: 00 08-10 03:47 :00 No 300mg 300 mg, Oral, ONCE NOW, 1 dose, On Tue08/10/23 at 2315, FAISAL, Reason for Anti-Infec tive: Documented Infection, Documented Infection Site: Skin / Soft Tissue, Duration of Therapy: Once (ED), Restricted use approved by: ED PROVIDER [facility] ondansetron (ZOFRAN (PF)) injection 4 mg 08-10 02:45: 00 08-10 02:18 :00 No 4mg 4 mg, Slow IV Push, ONCE, 1 dose, On Tue08/10/23 at 2145, [facility] NaCl 0.9% (NS) bolus infusion 1,000 mL 08-10 02:45: 00 08-10 04:19 :00 No 1000mL at 999 mL/hr, 1,000 mL, IV Infusion, ONCE, 1 dose, On Tue08/10/23 at 2145, [facility] ondansetron 4 mg disintegrat ing tablet 08-09 00:00: 00 Yes [id number] 4mg Take 1 tablet by mouth every 8 (eight) hours as needed for Nausea and Vomiting (N/V). [facility] clindamycin 300 mg capsule 08-09 00:00: 00 08-20 04:59 :00 No [id number] 300mg Take 1 capsule by mouth in the morning and 1 capsule at noon and 1 capsule in the evening. Do all this for 10 days. [facility] amoxicillin 400 mg/5 mL oral liquid 2022-02 05:38: 00 Yes 1,000 mg = 12.5 mL, PO, Q24H, X 10 day, # 125 mL, 0 Refill(s) oMhan Tolentino amoxicillin 500 mg oral tablet 2022-02 05:29: 00 No 1,000 mg = 2 tab, PO, Q24H, X 10 day, # 20 tab, 0 Refill(s) Mohan Tolentino Tylenol 2022-02 03:49: 00 No Notes: Do not exceed 4 gm/day. (Same as: Tylenol) Natashajohnathan alexander Tolentino amLODIPine 5 mg oral tablet 2021-02 04:31: 00 Yes 5 mg = 1 tab, PO, Daily, # 30 tab, 0 Refill(s) Mohan munoz Rajan Vital Signs Vital Name Observation Time Observation Value Comments S ource Systolic blood pressure 2024-01-04 21:00:00 150 [facility]Hg[facility] Di[facility] blood pressure 2024-01-04 21:00:00 91 mm[Hg[facility] Heart rate 2024-01-04 21:00:00 97 /[facility] Body temperature 2024-01-04 21:00:00 37 Roseanna [facility] Respiratory rate 2024-01-04 21:00:00 15 /min [facility] Oxygen saturation in Arterial blood by Pulse oximetry 2024-01-04 21:00:00 97 /min [facility] Body height 2024-01-04 17:31:00 167.6 cm [facility] Body weight 2024-01-04 17:31:00 67.586 kg [facility] BMI 2024-01-04 17:31:00 24.05 kg/m2 [facility] Systolic blood pressure 2024-01-01 05:17:00 149 mm[Hg] [facility] Diastolic blood pressure 2024-01-01 05:17:00 97 mm[Hg] [facility] Heart rate 2024-01-01 05:17:00 99 /min [facility] Body temperature 2024-01-01 05:17:00 36.72 Roseanna [facility] Respiratory rate 2024-01-01 05:17:00 16 /min [facility] Oxygen saturation in Arterial blood by Pulse oximetry 2024-01-01 05:17:00 100 /min [facility] Body height 2024-01-01 03:05:00 165.1 cm [facility] Body weight 2024-01-01 03:05:00 67.586 kg [facility] BMI 2024-01-01 03:05:00 24.79 kg/m2 [facility] Systolic blood pressure 2023-09-22 07:21:00 165 mm[Hg] [facility] Diastolic blood pressure 2023-09-22 07:21:00 100 mm[Hg] [facility] Heart rate 2023-09-22 07:21:00 119 /min [facility] Body temperature 2023-09-22 07:21:00 37.22 Roseanna [facility] Respiratory rate 2023-09-22 07:21:00 16 /min [facility] Body height 2023-09-22 07:21:00 165.1 cm [facility] Body weight 2023-09-22 07:21:00 70.625 kg [facility] BMI 2023-09-22 07:21:00 25.91 kg/m2 [facility] Oxygen saturation in Arterial blood by Pulse oximetry 2023-09-22 07:21:00 100 /min [facility] Systolic blood pressure 2023-08-22 05:00:00 135 mm[Hg] [facility] Diastolic blood pressure 2023-08-22 05:00:00 97 mm[Hg] [facility] Heart rate 2023-08-22 05:00:00 97 /min [facility] Body temperature 2023-08-22 05:00:00 36.83 Roseanna [facility] Respiratory rate 2023-08-22 05:00:00 16 /min [facility] Oxygen saturation in Arterial blood by Pulse oximetry 2023-08-22 05:00:00 100 /min [facility] Body height 2023-08-22 01:36:00 165.1 cm [facility] Body weight 2023-08-22 01:36:00 69.446 kg [facility] BMI 2023-08-22 01:36:00 25.48 kg/m2 [facility] Systolic blood pressure 2023-08-11 04:00:00 131 mm[Hg] [facility] Diastolic blood pressure 2023-08-11 04:00:00 70 mm[Hg] [facility] Heart rate 2023-08-11 04:00:00 109 /min [facility] Body temperature 2023-08-11 04:00:00 38.28 Roseanna [facility] Respiratory rate 2023-08-11 04:00:00 16 /min [facility] Oxygen saturation in Arterial blood by Pulse oximetry 2023-08-11 04:00:00 97 /min [facility] Body height 2023-08-11 01:07:00 165.1 cm [facility] Body weight 2023-08-11 01:07:00 70.761 kg [facility] BMI 2023-08-11 01:07:00 25.96 kg/m2 [facility] Systolic blood pressure 2023-08-08 00:56:00 149 mm[Hg] [facility] Diastolic blood pressure 2023-08-08 00:56:00 99 mm[Hg] [facility] Heart rate 2023-08-08 00:56:00 104 /min [facility] Body temperature 2023-08-08 00:56:00 37.17 Roseanna [facility] Respiratory rate 2023-08-08 00:56:00 18 /min [facility] Body height 2023-08-08 00:56:00 165.1 cm [facility] Body weight 2023-08-08 00:56:00 71.124 kg [facility] BMI 2023-08-08 00:56:00 26.09 kg/m2 [facility] Oxygen saturation in Arterial blood by Pulse oximetry 2023-08-08 00:56:00 100 /min [facility] Temperature Oral (F) 2023-01-03 04:57:00 99.3 F [facility] Heart Rate 2023-01-03 04:57:00 Deandre Tolentino Respitory Rate 2023-01-03 04:57:00 M lui Tolentino Systolic (mm Hg) 2023-01-03 04:57:00 [facility] Diastolic (mm Hg) 2023-01-03 04:57:00 [facility] Height 2023-01-03 02:50:00 5 [ft_i] [facility] BMI Calculated 2023-01-03 02:50:00 [facility] Weight 2023-01-03 02:50:00 [facility] Systolic (mm Hg) 2023-01-03 02:50:00 [facility] Diastolic (mm Hg) 2023-01-03 02:50:00 [facility] Heart Rate 2023-01-03 02:50:00 [facility] Respitory Rate 2023-01-03 02:50:00 [facility] Temperature Oral (F) 2023-01-03 02:50:00 104 F [facility] Rajan Height 2022-02-04 02:15:00 5 [ft_i] [facility] BMI Calculated 2022-02-04 02:15:00 [facility] Weight 2022-02-04 02:15:00 [facility] Systolic (mm Hg) 2022-02-04 02:15:00 [facility] Diastolic (mm Hg) 2022-02-04 02:15:00 [facility] Heart Rate 2022-02-04 02:15:00 [facility] Procedures Procedure Date / Time Performed Performing Clinician Source LACTIC ACID WHOLE BLOOD 2024-01-04 20:24:00 Peter Garrison [facility] POCT GLUCOSE(AGE >30DAYS) 2024-01-04 19:35:00 Vinita Garrison [facility] POCT GLUCOSE (AUTOMATED) 2024-01-04 19:33:00 Vintia Garrison [facility] PHOSPHORUS 2024-01-04 19:20:00 Vinita Garrison [facility] MAGNESIUM 2024-01-04 19:20:00 Vinita Garrison [facility] BASIC METABOLIC PANEL (NA, K, CL, CO2, GLUCOSE, BUN, CREATININE, CA) 2024-01-04 19:20:00 Vinita Garrison [facility] XR CHEST 2 VW 2024-01-04 18:24:14 Vinita Garrison [facility] POCT TEST 2024-01-04 18:13:00 Abbey Garrison [facility] COMP. METABOLIC PANEL ([id number]) 2024-01-04 18:12:00 Vinita Garrison [facility] CBC WITH DIFF 2024-01-04 18:12:00 Vinita Garrison [facility] GLYCOSYLATED HEMOGLOBIN (A1C) 2024-01-04 18:12:00 [facility] 2024-01-04 18:12[facility]00 [facility]AP[facility]REP S[facility]EN FOR GROUP A 2024-01-04 18:12:00 [facility] IN[facility] A/B RSV COVID NAAT 2024-01-04 18:12:00 [facility] AC PANEL 21 + LACTIC ACID 2024-01-04 18:10:00 Vinita Garrison [facility] POCT GLUCOSE (AUTOMATED) 2024-01-04 17:29:00 Doctor Unassigned, [place] [facility] POCT GLUCOSE(AGE >30DAYS) 2024-01-01 05:10:00 Linda Adena [facility] POCT GLUCOSE (AUTOMATED) 2024-01-01 05:08:00 Linda Adena [facility] BASIC METABOLIC PANEL (NA, K, CL, CO2, GLUCOSE, BUN, CREATININE, CA) 2024-01-01 04:40:00 Linda Adena [facility] POCT GLUCOSE(AGE >30DAYS) 2024-01-01 03:39:00 Linda Adena [facility] POCT GLUCOSE (AUTOMATED) 2024-01-01 03:38:00 Linda Adena [facility] POCT GLUCOSE(AGE >30DAYS) 2023-09-22 07:27:00 Nena Gregory [facility] POCT GLUCOSE (AUTOMATED) 2023-09-22 07:20:00 Nena Gregory [facility] POCT GLUCOSE(AGE >30DAYS) 2023-08-22 04:02:00 Pedro Luis Flores [facility] ABORH CONFIRMATION (LAB ONLY) 2023-08-22 03:39:00 Pedro Luis Flores [facility] US FIRST TRIMESTER LESS THAN 14 WEEKS 2023-08-22 03:13:50 Pedro Luis Flores [facility] COMP. METABOLIC PANEL ([id number]) 2023-08-22 01:53:00 Pedro Luis Flores [facility] TOTAL BETA HCG ASSAY 2023-08-22 01:53:00 Hanna Flores ubrialexander [facility] CBC WITH DIFF 2023-08-22 01:53:00 [facility] 2023-08-22 01:53:00 [facility] HB ABO GROUPING 2023-08-22 01:53:00 Pedro Luis Flores [facility] INCISION AND DRAINAGE 2023-08-11 03:06:13 Melody Herman [facility] BASIC METABOLIC PANEL (NA, K, CL, CO2, GLUCOSE, BUN, CREATININE, CA) 2023-08-11 02:16:00 [facility] CBC WITH DIFF 2023-08-11 02:16:[address] [facility] POCT TEST 2023-08-08 01:14:00 Lashae Gregory ra [facility] Encounters Start Date/Time End Date/Time Encounter Type Admission Type Attending [facility] Care Facility Care Department Encounter ID Source 2024-01-04 11:36:00 2024-01-04 15:24:00 Emergency X VINITA GARRISON [facility] ERT [id number] [facility] 2024-01-04 11:36:00 2024-01-04 15:24:00 Emergency Vinita Garrison [facility] [id number] [id number] [id number] [facility] 2023-12-31 22:09:00 2024-01-01 00:34:00 Emergency X MAUREEN MCKEON [facility] ERT [id number] [facility] 2023-12-31 22:09:00 2024-01-01 00:34:00 Emergency Maureen Mckeon [facility] [id number] [id number] [id number] [facility] 2023-09-22 02:25:00 2023-09-22 02:50:00 Emergency X NENA GREGORY SANDRA [facility] ERT [id number] [facility] 2023-09-22 02:25:00 2023-09-22 02:50:00 Emergency Nena Gregory [facility] [id number] [id number] 4.2.7.2.686 [id number] [facility] 2023-08-21 20:41:00 2023-08-22 00:20:00 Emergency X PEDRO LUIS FLORES [facility] ERT [id number] [facility] 2023-08-21 20:41:00 2023-08-22 00:20:00 [facility] [id number] [id number] [id number] [id number] [facility] 2023-08-10 20:10:00 2023-08-10 23:25:00 Emergency Will Herman [facility] [id number] [id number] [id number] [id number] [facility] 2023-08-07 19:59:00 2023-08-07 20:50:00 Emergency X NENA GREGORY SANDRA [facility] ERT [id number] [facility] 2023-08-07 19:59:00 2023-08-07 20:50:00 Emergency Nena Gregory [facility] [id number] [id number] [id number] [id number] [facility] 2023-03-10 08:30:00 2023-03-10 08:30:00 Outpatient SARAH ARREGUIN [id number] Bertha Gentile 2023-01-02 20:30:00 2023-01-02 23:38:00 Emergency E DEVAUGHN DEWITT [facility] [id number] [address] [place] [address] 2022-02-03 20:12:00 2022-02-03 23:20:00 [facility] [address] [facility] Results Test Description Test Time Test Comments Results Result Co mments Source [facility] (A1C)2024-01-04 20:28:38* Test Item Value Reference Range Interpretation Comme nts HGB A1C (test code = 4548-4) 11.8 % 4.0-5.7 H CALVIN (test code = CALVIN) Reference RangesNormal: <5.7%Prediabetes: 5.7 - 6.4%Diabetes: > 6.5% Lab Interpretation (test code = 94558-7) Abnormal [facility] Hospital[facility]esium [id number] 20:21:41* Test Item Value Reference Range Interpretation Comme nts MAGNESIUM (test code = 1567858041) 1.9 mg/dL 1.7-2.4 Lab Interpretation (test cod e = 58285-2) Normal [facility]osph[facility] [id number] 20:21:36* Test Item Value Reference Range Interpretation Comme nts PHOSPHORUS (test code = 4507361844) 2.6 mg/dL 2.5-5.0 Lab Interpretation (test cod e = 35795-0) Normal [facility] Met[facility] (Na, K, Cl, CO2, Glucose, BUN, Creatinine, Ca)2024-01-04 19:54:12* Test Item Value Reference Range Interpretation Comme nts NA (test code = 8055815098) 133 mmol/L 135-145 L K (test code = 6611671044) 3.3 mmol/L 3.5-5.0 L CL (test code = 7868608591) 99 mmol/L 98-108 CO2 TOTAL (test code = 2592789649) 22 mmol/L 23-31 L AGAP (test code = 5192147546) 12 2-16 BUN (test code = 8539120949) 18 mg/dL 7-23 GLUCOSE (test code = 0038815623) 179 mg/dL 70-110 H CREATININE (test code = 2160-0) 0.92 mg/dL 0.50-1.04 CALCIUM (test code = 4979482079) 8.8 mg/dL 8.6-10.6 eGFR (test code = 94625-4) 88.2 mL/min/1.73m2 CKD-EPI eGFR (2020). Assuming creatinine has been stable day-to-day for at least three months, the eGFR indicates Category G2 (60 - 89 mL/min/1.73 m2) Lab Interpretation (test code = 90923-0) Abnormal [facility] GLUCOSE (AUTOMATED)2024-01-04 19:35:00* Test Item Value Reference Range Interpretation Comme nts POCT GLU (test code = 7404368758) 138 mg/dL 70-110 H Lab Interpretation (test cod e = 49549-4) Abnormal [facility] GLUCOSE(AGE >30DAYS)2024-01-04 19:35:00* Test Item Value Reference Range Interpretation Comme nts POCT Glu (age>30days) (test code = 3342) 138 mg/dL 70-110 A Lab Interpretation (test cod e = 42145-7) Abnormal [facility]. METABOLIC PANEL (37933)2024-01-04 19:28:31* Test Item Value Reference Range Interpretation Comme nts NA (test code = 0550766511) 132 mmol/L 135-145 L K (test code = 8212807238) 3.5 mmol/L 3.5-5.0 CL (test code = 6629989691) 99 mmol/L 98-108 CO2 TOTAL (test code = 1988565419) 17 mmol/L 23-31 L AGAP (test code = 8218289180) 16 2-16 BUN (test code = 8521366959) 17 mg/dL 7-23 GLUCOSE (test code = 0300365180) 258 mg/dL 70-110 H CREATININE (test code = 2160-0) 0.93 mg/dL 0.50-1.04 TOTAL BILI (test code = 4896491143) 0.2 mg/dL 0.1-1.1 CALCIUM (test code = 3579784213) 9.0 mg/dL 8.6-10.6 T PROTEIN (test code = 4278088791) 7.2 g/dL 6.3-8.2 ALBUMIN (test code = 8544878510) 3.6 g/dL 3.5-5.0 ALK PHOS (test code = 7473919698) 124 U/L 34-122 H ALTv (test code = 1742-6) 32 U/L 5-35 AST(SGOT) (test code = 4038573759) 29 U/L 13-40 eGFR (test code = 64222-6) 87.1 mL/min/1.73m2 CKD-EPI eGFR (2020). Assuming creatinine has been stable day-to-day for at least three months, the eGFR indicates Category G2 (60 - 89 mL/min/1.73 m2) Lab Interpretation (test code = 08497-6) Abnormal [facility] WITH [id number] 19:10:25* Test Item Value Reference Range Interpretation Comme nts WBC (test code = 6690-2) 5.08 4.30-11.10 RBC (test code = 789-8) 4.36 3.93-5.25 HGB (test code = 718-7) 10.9 g/dL 11.6-15.0 L HCT (test code = 4544-3) 35.7 % 35.7-45.2 MCV (test code = 787-2) 81.9 fL 80.6-95.5 MCH (test code = 785-6) 25.0 pg 25.9-32.8 L MCHC (test code = 786-4) 30.5 g/dL 31.6-35.1 L RDW-SD (test code = 38881-0) 40.6 fL 39.0-49.9 RDW-CV (test code = 788-0) 13.6 % 12.0-15.5 PLT (test code = 777-3) 427 166-358 H MPV (test code = 38982-7) 10.7 fL 9.5-12.9 NRBC/100 WBC (test code = 0166244236) 0.0 0.0-10.0 NRBC x10^3 (test code = 8372077656) See_Comment [Automated messa ge] The system which generated this result transmitted reference range: 10*3/?L. The reference range was not used to interpret this result as normal/abnormal. GRAN MAT (NEUT) % (test code = 770-8) 66.9 % IMM GRAN % (test code = 5001869174) 0.20 % LYMPH % (test code = 736-9) 25.6 % MONO % (test code = 5905-5) 5.1 % EOS % (test code = 713-8) 1.6 % BASO % (test code = 706-2) 0.6 % GRAN MAT x10^3(ANC) (test code = 4739910883) 3.40 10*3/uL 1.88-7.09 IMM GRAN x10^3 (test code = 0368795914) 0.00-0.06 LYMPH x10^3 (test code = 731-0) 1.30 10*3/uL 1.32-3.29 L MONO x10^3 (test code = 742-7) 0.26 10*3/uL 0.33-0.92 L EOS x10^3 (test code = 711-2) 0.08 10*3/uL 0.03-0.39 BASO x10^3 (test code = 704-7) 0.03 10*3/uL 0.01-0.07 Lab Interpretation (test code = 73550-2) [facility] [id number] 18:25:51HISTORY: Cough. TECHNIQUE: PA and lateral views of the chest are obtained. FINDINGS: No acute pneumonia detected. No pneumothorax or pleural effusionor pulmonary congestion. Cardiomediastinal contourappears normal. Mild midthoracic dextroscoliosis is noted. No compression fracture deformity seeninthe thoracic vertebral bodies. CONCLUSIONS: No signs of acute cardiopulmonary disease. [facility] + Lactic [id number] 18:19:18* Test Item Value Reference Range Interpretation Comme nts PH (test code = 3858664706) 7.31 7.32-7.42 L PCO2 CHARLEEN (test code = 3645345187) 37 41-51 L PO2 CHARLEEN (test code = 9179159843) 27 25-40 HCO3 CHARLEEN (test code = 3742525371) 18 24-28 L AC VBE(BEAKER) (test code = 0533298343) -7.5 mEq/L THB CHARLEEN (test code = 1308786553) 11.6 g/dL 12.0-16.0 L %O2HB CHARLEEN (test code = 1474927067) 51.5 % 52.0-63.0 L %COHB CHARLEEN (test code = 9054821022) 1.0 % 0.0-1.5 %METHB CHARLEEN (test code = 4602232753) 0.3 % 0.4-1.5 L VOL%O2 CHARLEEN (test code = 0774197644) 8.4 % 6.0-12.0 NA (test code = 9206536982) 137 mmol/L 135-145 K+ (test code = 6120360015) 3.7 mmol/L 3.5-5.0 AC CA IONZ (test code = 8683535337) 4.80 mg/dL 4.50-5.30 GLUCOSE (test code = 5516507850) 259 mg/dL 70-110 H LACTIC ACID (test code = 7857168833) 8.02 mmol/L 0.50-2.20 H Lab Interpretation (test cod e = 81660-4) [facility]normal [facility] [id number] 18:13:00* Test Item Value Reference Range Interpretation Comme nts POCT PREG (test code = 1605) Negative On board controls acceptable with C Line (test code = 3574) Yes POCT PREG LOT # (test code = 3570) [id number] POCT PREG TEST DATE ( test code = 3575) [id number] Lab Interpretation (test cod e = 59260-6) Normal [facility] GLUCOSE (AUTOMATED)2024-01-04 17:31:00* Test Item Value Reference Range Interpretation Comme nts POCT GLU (test code = 4750161896) 321 mg/dL 70-110 H Lab Interpretation (test cod e = 58350-9) Abnormal [facility] Metabolic Panel (NA, K, CL, CO2, GLUCOSE, BUN, CREATININE, CA)2024-01-01 05:33:58* Test Item Value Reference Range Interpretation Comme nts NA (test code = 7262149172) 131 mmol/L 135-145 L K (test code = 3432608420) 4.5 mmol/L 3.5-5.0 CL (test code = 6343246988) 99 mmol/L 98-108 CO2 TOTAL (test code = 1163609740) 25 mmol/L 23-31 AGAP (test code = 6991725284) 7 2-16 BUN (test code = 6435938313) 18 mg/dL 7-23 GLUCOSE (test code = 9157050226) 421 mg/dL 70-110 H CREATININE (test code = 2160-0) 1.05 mg/dL 0.50-1.04 H CALCIUM (test code = 4691325963) 8.3 mg/dL 8.6-10.6 L eGFR (test code = 63148-5) 75.3 mL/min/1.73m2 CKD-EPI eGFR (2020). Assuming creatinine has been stable day-to-day for at least three months, the eGFR indicates Category G2 (60 - 89 mL/min/1.73 m2) Lab Interpretation (test code = 99491-5) Abnormal [facility] GLUCOSE(AGE >30DAYS)2024-01-01 05:10:00* Test Item Value Reference Range Interpretation Comme nts POCT Glu (age>30days) (test code = 3342) 393 mg/dL 70-110 A Lab Interpretation (test cod e = 03688-0) Abnormal [facility] GLUCOSE (AUTOMATED)2024-01-01 05:09:45* Test Item Value Reference Range Interpretation Comme nts POCT GLU (test code = 3184806524) 393 mg/dL 70-110 H Lab Interpretation (test cod e = 58293-4) Abnormal [facility] GLUCOSE (AUTOMATED)2024-01-01 03:39:15* Test Item Value Reference Range Interpretation Comme nts POCT GLU (test code = 1312586938) 414 mg/dL 70-110 H Lab Interpretation (test cod e = 41401-2) Abnormal [facility] GLUCOSE(AGE >30DAYS)2024-01-01 03:39:00* Test Item Value Reference Range Interpretation Comme nts POCT Glu (age>30days) (test code = 3342) 414 mg/dL 70-110 A Lab Interpretation (test cod e = 34518-9) Abnormal [facility] GLUCOSE(AGE >30DAYS)2023-09-22 07:27:00* Test Item Value Reference Range Interpretation Comme nts POCT Glu (age>30days) (test code = 3342) 381 mg/dL 70-110 A Lab Interpretation (test cod e = 09275-6) Abnormal [facility] GLUCOSE (AUTOMATED)2023-09-22 07:21:21* Test Item Value Reference Range Interpretation Comme nts POCT GLU (test code = 4234893090) 381 mg/dL 70-110 H Lab Interpretation (test cod e = 64287-5) Abnormal [facility] FIRST TRIMESTER LESS THAN 14 [id number] 04:12:02Ordering physician: PEDRO LUIS FLORES INDICATION: Vaginal bleeding in early COMPARISON: None TECHNIQUE: Grayscale and Doppler images of the pelvis were performed via atransabdominal and endovaginal approach. FINDINGS: The uterus measures 9.5 x 5.6 x 6.6 cm. There is an intrauterinegestational sac, with yolk sac and pole identified. Estimatedgestational age by ultrasound measurements is 6 weeks, 3 days. heartrate is measured at 143 bpm. The gestational sac is normal inconfiguration, with grossly normal amniotic fluid level. Gestational age istoo early for evaluation of the placenta. There is a minimal subchorionichemorrhage, measuring 5 mm. The maternal right ovary measures 2.9 x 1.5 x 2.2 cm. There is a 2.0 cmhemorrhagic cyst. The left ovary is obscured by overlying bowel gas. Noadnexal mass or free fluid is appreciated. There is normal color Dopplerflow in the righ t ovary.[facility] Confirmation (Lab Only) 2023-08-22 04:03:00* Test Item Value Reference Range Interpretation Comme nts ABO & RH (test code = 20) A Positive [facility] >30DAYS)2023-08-22 04:02:00* Test Item Value Reference Range Interpretation Comme nts POCT Glu (age>30days) (test code = 3342) 214 mg/dL 70-110 A Lab Interpretation (test cod e = 32010-7) Abnormal [facility] BETA HCG [id number] 03:07:49* Test Item Value Reference Range Interpretation Comme nts BETA HCG (test code = 3354092082) 8802.00 See_Comment [Automated imaginea [place]] The system which generated this result transmitted reference range: Non- female and male patients: <5 mIU/mL. The reference range was not used to interpret this result as normal/abnormal. CALVIN (test code = CALVIN) Gestational Age ?Range (mIU/mL) 1-10 ?Weeks ?48-93735521-16 Weeks ?39544-05253610-05 Weeks ?5799-74371663-18 Weeks ?2331-052986 Biotin has been reported to cause a negative bias, interpret results relative to patient's use of biotin. [facility]. METABOLIC PANEL (06954)2023-08-22 02:58:56* Test Item Value Reference Range Interpretation Comme nts NA (test code = 0959109914) 129 mmol/L 135-145 L K (test code = 7261916890) 3.8 mmol/L 3.5-5.0 CL (test code = 4362584324) 97 mmol/L 98-108 L CO2 TOTAL (test code = 8095061127) 22 mmol/L 23-31 L AGAP (test code = 2212050994) 10 2-16 BUN (test code = 3638603468) 17 mg/dL 7-23 GLUCOSE (test code = 4685363105) 533 mg/dL 70-110 HH CREATININE (test code = 2160-0) 0.88 mg/dL 0.50-1.04 TOTAL BILI (test code = 1780422793) 0.5 mg/dL 0.1-1.1 CALCIUM (test code = 5921652372) 8.7 mg/dL 8.6-10.6 T PROTEIN (test code = 8680804369) 7.0 g/dL 6.3-8.2 ALBUMIN (test code = 8062124604) 3.4 g/dL 3.5-5.0 L ALK PHOS (test code = 7039496169) 150 U/L 34-122 H ALTv (test code = 1742-6) 15 U/L 5-35 AST(SGOT) (test code = 3151236466) 26 U/L 13-40 eGFR (test code = 70523-8) 93.7 mL/min/1.73m2 CKD-EPI eGFR (2020). Assuming creatinine has been stable day-to-day for at least three months, the eGFR indicates Category G1 (>= 90 mL/min/1.73 m2) Lab Interpretation (test code = 79154-8) Abnormal [facility] WITH [id number] 02:26:03* Test Item Value Reference Range Interpretation Comme nts WBC (test code = 6690-2) 7.54 4.30-11.10 RBC (test code = 789-8) 3.92 3.93-5.25 L HGB (test code = 718-7) 11.5 g/dL 11.6-15.0 L HCT (test code = 4544-3) 34.2 % 35.7-45.2 L MCV (test code = 787-2) 87.2 fL 80.6-95.5 MCH (test code = 785-6) 29.3 pg 25.9-32.8 MCHC (test code = 786-4) 33.6 g/dL 31.6-35.1 RDW-SD (test code = 00541-0) 36.6 fL 39.0-49.9 L RDW-CV (test code = 788-0) 11.6 % 12.0-15.5 L PLT (test code = 777-3) 435 166-358 H MPV (test code = 20278-3) 9.8 fL 9.5-12.9 NRBC/100 WBC (test code = 8937849918) 0.0 0.0-10.0 NRBC x10^3 (test code = 4627966363) See_Comment [Automated messa ge] The system which generated this result transmitted reference range: 10*3/?L. The reference range was not used to interpret this result as normal/abnormal. GRAN MAT (NEUT) % (test code = 770-8) 60.4 % IMM GRAN % (test code = 7782154591) 0.40 % LYMPH % (test code = 736-9) 33.2 % MONO % (test code = 5905-5) 4.0 % EOS % (test code = 713-8) 1.5 % BASO % (test code = 706-2) 0.5 % GRAN MAT x10^3(ANC) (test code = 6532756679) 4.56 10*3/uL 1.88-7.09 IMM GRAN x10^3 (test code = 6973152825) 0.03 10*3/uL 0.00-0.06 LYMPH x10^3 (test code = 731-0) 2.50 10*3/uL 1.32-3.29 MONO x10^3 (test code = 742-7) 0.30 10*3/uL 0.33-0.92 L EOS x10^3 (test code = 711-2) 0.11 10*3/uL 0.03-0.39 BASO x10^3 (test code = 704-7) 0.04 10*3/uL 0.01-0.07 Lab Interpretation (test code = 45267-6) [facility]normal [facility] - ONCE [id number] 02:10:00* Test Item Value Reference Range Interpretation Comme nts ABO & RH (test code = 20) A POSITIVE IAT (test code = 1185) Negative [facility] METABOLIC PANEL (NA, K, CL, CO2, GLUCOSE, BUN, CREATININE, CA)2023-08-11 02:40:29* Test Item Value Reference Range Interpretation Comme nts NA (test code = 0804865310) 131 mmol/L 135-145 L K (test code = 0274477573) 3.8 mmol/L 3.5-5.0 CL (test code = 8506626879) 97 mmol/L 98-108 L CO2 TOTAL (test code = 7278617843) 27 mmol/L 23-31 AGAP (test code = 0603635619) 7 2-16 BUN (test code = 0190416961) 14 mg/dL 7-23 GLUCOSE (test code = 9159577122) 258 mg/dL 70-110 H CREATININE (test code = 2160-0) 0.78 mg/dL 0.50-1.04 CALCIUM (test code = 3279585652) 8.8 mg/dL 8.6-10.6 eGFR (test code = 84612-3) 108.3 mL/min/1.73m2 CKD-EPI eGFR (2020). Assuming creatinine has been stable day-to-day for at least three months, the eGFR indicates Category G1 (>= 90 mL/min/1.73 m2) Lab Interpretation (test code = 55359-2) Abnormal [facility] WITH [id number] 02:27:07* Test Item Value Reference Range Interpretation Comme nts WBC (test code = 6690-2) 10.20 4.30-11.10 RBC (test code = 789-8) 4.40 3.93-5.25 HGB (test code = 718-7) 13.1 g/dL 11.6-15.0 HCT (test code = 4544-3) 38.3 % 35.7-45.2 MCV (test code = 787-2) 87.0 fL 80.6-95.5 MCH (test code = 785-6) 29.8 pg 25.9-32.8 MCHC (test code = 786-4) 34.2 g/dL 31.6-35.1 RDW-SD (test code = 75791-1) 37.1 fL 39.0-49.9 L RDW-CV (test code = 788-0) 11.6 % 12.0-15.5 L PLT (test code = 777-3) 323 166-358 MPV (test code = 48027-1) 9.8 fL 9.5-12.9 NRBC/100 WBC (test code = 8892087472) 0.0 0.0-10.0 NRBC x10^3 (test code = 9200405430) See_Comment [Automated messa ge] The system which generated this result transmitted reference range: 10*3/?L. The reference range was not used to interpret this result as normal/abnormal. GRAN MAT (NEUT) % (test code = 770-8) 82.2 % IMM GRAN % (test code = 5067339417) 0.40 % LYMPH % (test code = 736-9) 12.1 % MONO % (test code = 5905-5) 5.1 % EOS % (test code = 713-8) 0.1 % BASO % (test code = 706-2) 0.1 % GRAN MAT x10^3(ANC) (test code = 1387895910) 8.39 10*3/uL 1.88-7.09 H IMM GRAN x10^3 (test code = 0586138281) 0.04 10*3/uL 0.00-0.06 LYMPH x10^3 (test code = 731-0) 1.23 10*3/uL 1.32-3.29 L MONO x10^3 (test code = 742-7) 0.52 10*3/uL 0.33-0.92 EOS x10^3 (test code = 711-2) 0.03-0.39 L BASO x10^3 (test code = 704-7) 0.01-0.07 Lab Interpretation (test code = 90944-2) Abnormal [facility] [id number] 01:14:00* Test Item Value Reference Range Interpretation Comme nts POCT PREG (test code = 1605) Positive On board controls acceptable with C Line (test code = 3574) Yes Lab Interpretation (test cod e = 48122-5) Normal [facility]2023-11-06 04:07:00* Test Item Value Reference Range Interpretation Comme nts Glucose POC (test code = Glucose POC) 191 70-99 [facility] - [id number] 03:59:00* Test Item Value Reference Range Interpretation Comme nts Strep A NAAT (test code = Strep A NAAT) Positive *ABN*(01/02/23 9:59 PM) Coronavirus (COVID-19) BEN (test code = Coronavirus (COVID-19) BEN) Not Detected 3(01/02/23 9:59 PM) Influ A (test code = Influ A) Negative (01/02/23 9:59 PM) Influ B (test code = Influ B) Negative 1(01/02/23 9:59 PM) [id number] 03:59:[facility]* Test Item Value Reference Range Interpretation Comme nts U Preg (test code = U Preg) Negative (01/02/23 9:59 PM) [facility] AND [id number] 03:59:00* Test Item Value Reference Range Interpretation Comme nts UA Color (test code = UA Color) Yellow *NA*(01/02/23 9:59 PM) UA Turbidity (test code = UA Turbidity) Clear (01/02/23 9:59 PM) UA Spec Grav (test code = UA Spec Grav) 1.028 1 UA pH (test code = UA pH) 5.0 1 5.0-8.0 UA Protein (test code = UA Protein) >=300 mg/dL UA Glucose (test code = UA Glucose) >=500 mg/dL UA Ketones (test code = UA Ketones) Negative mg/dL UA Bili (test code = UA Bili) Negative *NA*(01/02/23 9:59 PM) UA Blood (test code = UA Blood) Small *ABN*(01/02/23 9:59 PM) UA Nitrite (test code = UA Nitrite) Negative (01/02/23 9:59 PM) UA Leuk Est (test code = UA Leuk Est) Negative (01/02/23 9:59 PM) UA Ascorbic Acid (test code = UA Ascorbic Acid) Negative 2*NA*(01/02/23 9:59 PM) UA Sq Epi (test code = UA Sq Epi) Occasional /LPF UA WBC (test code = UA WBC) 3 <=5 UA RBC (test code = UA RBC) 5 <=2 UA Mucus (test code = UA Mucus) Few /LPF UA Urobilinogen (test code = UA Urobilinogen) <=1.0 mg/dL 0.1-1.0 [facility] TonyantoninoURINE [id number] 03:59:00* Test Item Value Reference Range Interpretation Comme nts U Preg (test code = U Preg) Negative (01/02/23 9:59 PM) [facility] [id number] 03:04:00* Test Item Value Reference Range Interpretation Comme nts U Preg (test code = U Preg) Negative (02/03/22 9:04 PM) Michael Tolentino Notes Date/Time Note Provider Source 2024-01-04 15:23:45 Pt requesting to leave AMA. ERP notified. Pt counseled to remain, risks of leaving AMA including discussed with pt. Pt continued to decline further ER evaluation at this time. AMA papers signed, witnessed, and placed on patient's chart. Pt left ambulatory. VS stable, no ataxia noted, GCS 15, A&Ox4. LLA Moe RN [facility] 2024-01-04 11:25:52 Patient arrived ambulatory states she feels like she has strep throat, out of Toujeo medication a6yavih, only has short acting insulin. States she also feels like she needs a breathing treatment due to heavy breathing. Unlabored breathing in triage. BGL 321 in triage ABORATING SUPERVISING PHYSICIAN Angelina Mireles RN [facility] 2024-01-01 00:30:53 Pt given printed and verbal discharge instructions regarding diabetes w/high blood sugar, encouraged hydration. Prescriptions provided. Pt verbalized understanding of instructions, pt awake alert oriented, resp reg unlabored, skin w/d, color appropriate for race, moves all ext well,pt encouraged to follow up with pcp. Advised to seek medical attention for new/prolonged/worsening of symptoms. No adverse reaction to meds given in ER noted upon discharge. PIV d'cd, dressing to site, catheter in tact. Awake, alert oriented, resp reg unlabored, skin w/d, pt leaving amb with steady gait, in no apparent distress. Avelina Gregory RN [facility] 2023-12-31 22:03:21 Pt arrived ambulatory without assist. Pt c/o needing a refill on her toujeo because she does not have an appointment with her PCP until the end of this month Stephanie Ash RN [facility] 2023-12-31 21:58:00 [facility] Emergency Department Note Patient Name: Yuli Velarde Date of : 1995 28 year old female Treatment Room: [facility] ED [facility] Primary Care Physician: Johana Koenig Patient Escorted by: Self [9] Mode of Arrival: Personal means [1] EMS Treatment Prior to ED Arrival: FORENSIC SCIENTIST treatment: None Travel and Exposure Screening: Symptoms Does patient have any of these symptoms?: (not recorded) Exposure Screening Has patient had contact with someone with a communicable disease in the last month?: (not recorded) Diseases exposed to:: (not recorded) Is Patient ?: (not recorded) Exposure Date: (not recorded) Chief Complaint: Chief Complaint Patient presents with Other Med refill History of Present Illness: HPI 28yo AAF with typ 1 Dm who states she has been out of her long acting insulin for 2 days. She states she just got busy with her kids and job and that's why she came in. No nausea or belly pain or vomiting or fevers. Has been trying to watch her diet at home and has taken short acting insulin. States she takes 25units daily of long acting. Past Medical History/Immunizations: Past Medical History: Diagnosis Date HTN (hypertension) Type 1 diabetes Tetanus received in last 5 years: Unknown Allergies: Allergies Allergen Reactions Morphine Anaphylaxis Motrin [Ibuprofen] Hives [place] Unknown - See comments Past Social History: Substance & Sexual Activity No substance use or sexual activity history on file. Past Surgical History: No past surgical history on file. Review of Systems: Review of Systems Constitutional: Negative for activity change, diaphoresis, fatigue, fever and weight gain. HENT: Negative for congestion, ear pain, rhinorrhea, sore throat, tinnitus and trouble swallowing. Eyes: Negative for discharge and visual disturbance. Respiratory: Negative for cough and chest tightness. Breasts: Negative for pain. Cardiovascular: Negative for chest pain and palpitations. Gastrointestinal: Negative for abdominal pain, nausea and vomiting. Genitourinary: Negative for dysuria, hematuria and difficulty urinating. Musculoskeletal: Negative for joint swelling. Skin: Negative for rash and wound. Neurological: Negative for dizziness and headaches. Psychiatric/Behavioral: Negative for agitation and confusion. The patient is not nervous/anxious. Hematological: Does not bruise/bleed easily. Endocrine: Negative for weight gain. Physical Exam: ED Triage Vitals [12/31/23 2205] Weight 67.6 kg (149 lb) Actual or estimated Actual Height 1.651 m (5' 5") BP 135/89 Pulse 115 Resp 20 Temp 37.1 ?C (98.8 ?F) Temp source Oral SpO2 98 % Measured on Room air Physical Exam Vitals reviewed. Constitutional: Appearance: She is well-developed. HENT: Head: Normocephalic and atraumatic. Eyes: Conjunctiva/sclera: Conjunctivae normal. Cardiovascular: Rate and Rhythm: Regular rhythm. Tachycardia present. Heart sounds: Normal heart sounds. No murmur heard. Pulmonary: Effort: Pulmonary effort is normal. Breath sounds: Normal breath sounds. No stridor. Abdominal: General: Bowel sounds are normal. Palpations: Abdomen is soft. Tenderness: There is no abdominal tenderness. Musculoskeletal: General: Normal range of motion. Cervical back: Neck supple. Skin: General: Skin is warm and dry. Capillary Refill: Capillary refill takes less than 2 seconds. Neurological: Mental Status: She is alert and oriented to person, place, and time. Cranial Nerves: No cranial nerve deficit. Psychiatric: Behavior: Behavior normal. Radiology: No orders to display Lab Results: Lab Results POCT GLUCOSE(AGE >30DAYS) - Abnormal Result Value Ref Range POCT Glu (age>30days) 414 (*) 70 - 110 mg/dL POCT GLUCOSE (AUTOMATED) - Abnormal POCT GLU 414 (*) 70 - 110 mg/dL POCT GLUCOSE(AGE >30DAYS) - Abnormal POCT Glu (age>30days) 393 (*) 70 - 110 mg/dL POCT GLUCOSE (AUTOMATED) - Abnormal POCT GLU 393 (*) 70 - 110 mg/dL BASIC METABOLIC PANEL (NA, K, CL, CO2, GLUCOSE, BUN, CREATININE, CA) EKG: If EKG completed, see Procedure Note. Orders and Treatments: Orders Placed This Encounter Procedures POCT GLUCOSE(AGE >30DAYS) POCT GLUCOSE (AUTOMATED) POCT GLUCOSE(AGE >30DAYS) Basic Metabolic Panel (NA, K, CL, CO2, GLUCOSE, BUN, CREATININE, CA) POCT GLUCOSE (AUTOMATED) Orders Placed This Encounter Medications NaCl 0.9% (NS) bolus infusion 1,000 mL DISCONTD: insulin NPH (HUMULIN N) injection 15 Units insulin glargine U-300 conc (TOUJEO MAX U-300 SOLOSTAR) 300 unit/mL (3 mL) InPn insulin glargine (LANTUS U-100) injection 20 Units insulin regular human (HUMULIN R) injection 10 Units First Provider Eval: ED Events Date/Time Event User Comments 12/31/232213 Medical Screening Begins MAUREEN MCKEON MD -- 12/31/232213 First Provider Evaluation MAUREEN MCKEON MD -- ED COURSE Diagnosis/Impression as of 01/01/24 0014 Tachycardia Hyperglycemia due to type 1 diabetes mellitus Medication refill Procedures: Procedures MDM: Medical Decision Making Pt agrees to 1 L bolus and shot of insulin and then wants to leave After 1L bolus patient doesn't wantt to wait Demanding to go home, sugars on down a little Given another 10 units of insulin HR now improved Very unlikely to be in DKA Will Discharge per request. Problems Addressed: Hyperglycemia due to type 1 diabetes mellitus: chronic illness or injury Medication refill: acute illness or injury Tachycardia: acute illness or injury Amount and/or Complexity of Data Reviewed Labs: ordered. Decision-making details documented in ED Course. Risk OTC drugs. Prescription drug management. Flowsheet Documentation: Scoring Tools: No data recorded Disposition/Condition: ED Disposition ED Disposition Discharge Condition Stable Comment -- Discharge Medications: Patient's Medications START taking these medications INSULIN GLARGINE U-300 CONC (TOUJEO MAX U-300 SOLOSTAR) 300 UNIT/ML (3 ML) INPN inject 25 Units under the skin every evening for 30 days. CONTINUE taking these medications which have NOT CHANGED ONDANSETRON 4 MG DISINTEGRATING TABLET Take 1 tablet by mouth every 8 (eight) hours as needed for Nausea and Vomiting (N/V). START taking Modified Medications as Prescribed No medications on file STOP taking these medications No medications on file Follow-up: Electronically signed by: Maureen Mckeon DO 01/01/24 0015 [facility] 2023-09-22 02:30:32 Pt given printed and verbal discharge instructions regarding hyperglycemia, & vaginal yeast infections. Pt verbalized understanding of instructions, pt awake alert oriented, resp reg unlabored, skin w/d, color appropriate for race, moves all ext well,pt encouraged to follow up with pcp. Advised to seek medical attention for new/prolonged/worsening of symptoms. No adverse reaction to meds given in ER noted upon discharge. Awake, alert oriented, resp reg unlabored, skin w/d, pt leaving amb with steady gait, in no apparent distress. T [facility] 2023-09-22 02:14:03 Pt arrives ambulatory to ED reporting that she believes she has a yeast infection. She says she is having an "uncomfortable feeling" in her vaginal area. 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 Pt says she is still bleeding and is unsure if she has any discharge. Avelina Gregory RN [facility] 2023-09-22 02:11:00 [facility] Emergency Department Note Patient Name: Yuli Velarde Date of : 1995 27 year old female Treatment Room: Room/bed info not found Primary Care Physician: Johana Koenig Patient Escorted by: Self [9] Mode of Arrival: Personal means [1] EMS Treatment Prior to ED Arrival: Travel and Exposure Screening: Symptoms Does patient have any of these symptoms?: (not recorded) Exposure Screening Has patient had contact with someone with a communicable disease in the last month?: (not recorded) Diseases exposed to:: (not recorded) Is Patient ?: (not recorded) Exposure Date: (not recorded) Chief Complaint: Chief Complaint Patient presents with Other Poss yeast infection History of Present Illness: The patient presents from home for evaluation for vaginal pain as well as vaginal discharge for the past 3 days. She reports she recently had a miscarriage and is concerned she is now having a yeast infection. She does have history of diabetes and takes insulin. No dysuria or hematuria. No fevers or chills. No medications taken for symptoms. Here for evaluation. Past Medical History/Immunizations: Past Medical History: Diagnosis Date HTN (hypertension) Type 1 diabetes Allergies: Allergies Allergen Reactions Morphine Anaphylaxis Motrin [Ibuprofen] Hives [place] Unknown - See comments Past Social History: Substance & Sexual Activity No substance use or sexual activity history on file. Past Surgical History: History reviewed. No pertinent surgical history. Review of Systems: Review of Systems Constitutional: Negative for chills and fever. Respiratory: Negative for cough. Cardiovascular: Negative for chest pain. Gastrointestinal: Negative for abdominal pain, nausea and vomiting. Genitourinary: Positive for vaginal bleeding, vaginal discharge and vaginal pain. Negative for dysuria. Musculoskeletal: Negative for neck pain and neck stiffness. Skin: Negative for wound. Neurological: Negative for dizziness. Psychiatric/Behavioral: Negative for agitation. Endocrine: Negative for goiter. Physical Exam: ED Triage Vitals [09/22/23 0221] Weight 70.6 kg (155 lb 11.2 oz) Actual or estimated Actual Height 1.651 m (5' 5") BP (!) 165/100 Pulse 119 Resp 16 Temp 37.2 ?C (99 ?F) Temp source Oral SpO2 100 % Measured on Room air Physical Exam Vitals and nursing note reviewed. Constitutional: Appearance: Normal appearance. She is normal weight. HENT: Head: Normocephalic and atraumatic. Cardiovascular: Rate and Rhythm: Normal rate. Pulmonary: Effort: Pulmonary effort is normal. No respiratory distress. Abdominal: General: There is no distension. Palpations: Abdomen is soft. Tenderness: There is no abdominal tenderness. Musculoskeletal: General: Normal range of motion. Cervical back: Neck supple. Skin: General: Skin is warm. Neurological: General: No focal deficit present. Mental Status: She is alert. Radiology: No orders to display Lab Results: Lab Results POCT GLUCOSE (AUTOMATED) - Abnormal Result Value Ref Range POCT GLU 381 (*) 70 - 110 mg/dL POCT GLUCOSE(AGE >30DAYS) EKG: If EKG completed, see Procedure Note. Orders and Treatments: Orders Placed This Encounter Procedures POCT GLUCOSE(AGE >30DAYS) POCT GLUCOSE (AUTOMATED) Orders Placed This Encounter Medications fluconazole (DIFLUCAN) tablet 150 mg First Provider Eval: ED Events Date/Time Event User Comments 09/22/23211 Medical Screening Begins NENA GREGORY DO -- 09/22/23211 First Provider Evaluation NENA GREGORY DO -- ED COURSE Diagnosis/Impression as of 09/22/23224 Vaginal candidiasis Hyperglycemia Procedures: Procedures MDM: Medical Decision Making The patient presents from home for evaluation for vaginal pain as well as vaginal discharge for the past 3 days. She reports she recently had a miscarriage and is concerned she is now having a yeast infection. She does have history of diabetes and takes insulin. No dysuria or hematuria. No fevers or chills. No medications taken for symptoms. Vital signs are stable in the ER. Her abdomen is soft and nontender. Her blood sugar here in the ER is elevated at 381. Spoke to the patient about improved glucose control to decrease her risk of recurrent yeast infection. Will treat with Diflucan. She remained stable here in the ER and is okay for discharge home with PCP follow-up. Problems Addressed: Hyperglycemia: acute illness or injury Vaginal candidiasis: acute illness or injury Amount and/or Complexity of Data Reviewed Labs: ordered. Decision-making details documented in ED Course. Risk Prescription drug management. Flowsheet Documentation: Scoring Tools: No data recorded Disposition/Condition: ED Disposition ED Disposition Disch - Home Condition Stable Comment -- Discharge Medications: Patient's Medications START taking these medications No medications on file CONTINUE taking these medications which have NOT CHANGED ONDANSETRON 4 MG DISINTEGRATING TABLET Take 1 tablet by mouth every 8 (eight) hours as needed for Nausea and Vomiting (N/V). START taking Modified Medications as Prescribed No medications on file STOP taking these medications No medications on file Follow-up: Electronically signed by: Nena Gregory DO 09/22/23 0225 [facility] 2023-08-22 00:18:07 Pt given printed and verbal discharge instructions regarding threatened , hyperglycemia, essential hypertension, subchorionic hemorrhage of placenta in first trimester, and encouraged hydration, Pt verbalized understanding of instructions, pt awake alert oriented, resp reg unlabored, skin w/d, color appropriate for race, moves all ext well,pt encouraged to follow up with pcp and REPAIR CLERK Advised to seek medical attention for new/prolonged/worsening of symptoms. No adverse reaction to meds given in ER noted upon discharge PIV d'cd, dressing to site, catheter in tact. Awake, alert oriented, resp reg unlabored, skin w/d, pt leaving amb with steady gait, in no apparent distress, Stephanie Ash RN [facility] 2023-08-21 21:30:27 Provider notified of blood pressure T [facility] 2023-08-21 20:48:58 Summary: US US called out eta 1hr T Avelina Marroquin [facility] 2023-08-21 20:34:00 Patient arrived ambulatory via private car c/o of abdominal pain, vaginal bleeding, and pelvic pain. Patient states she is approximately 8 weeks. Patient stated "I feel open down there like I am dilated. I think I am having a miscarriage." Complains of brown blood but not enough to fill a pad. [id number] [facility] 2023-08-10 23:21:58 Pt given printed and verbal discharge instructions regarding abscess and N/V Prescriptions provided Discussed antibiotic therapy and to take until all completed unless adverse reaction occurs - if occurs, discontinue medication and follow up with pcp/seek medical attention Pt verbalized understanding of instructions, pt awake alert oriented, resp reg unlabored, skin w/d, color appropriate for race, moves all ext well,pt encouraged to follow up with pcp Advised to seek medical attention for new/prolonged/worsening of symptoms No adverse reaction to meds given in ER noted upon discharge PIV d'cd, dressing to site, catheter in tact. Awake, alert oriented, resp reg unlabored, skin w/d, pt leaving amb with steady gait, in no apparent distress Alyson Cr RN [facility] 2023-08-10 20:03:59 Pt arrives ambulatory to ED c/o abscess to the right shoulder x2 days. Pt reports that she is more nauseous than normal, she is 7 weeks . Denies fever Avelina Gregory RN [facility] 2023-08-07 20:50:16 Pt dc'd home ambulatory. Pt v/u of dc instructions and follow up with OBGYN Nichol Plascencia RN [facility] 2023-08-07 19:54:19 CC: Pt thinks she is 6 weeks , LMP 06/26/23. She states that since morning she has blood when she wipes. Pt has not seen OBGYN yet for this , . NO abdominal cramping PMHx: DM1, HTN Awake, alert, oriented, resp reg unlabored, skin warm, color appropriate for race, moves all ext without difficulty, amb with steady gait [facility] 2023-08-07 19:51:00 [facility] Emergency Department Note Patient Name: Yuli Velarde Date of : 1995 27 year old female Treatment Room: [facility] FT/[id number] Primary Care Physician: No primary care provider on file. 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 She reports she recently found that she was and that her last menstrual period was June 25. She is 5 para 3-0-1-3. No abdominal pain or cramping. She does have some nausea but no vomiting. She is not needing to wear a pad and gets no blood on her underwear. She has not followed up with REPAIR CLERK as of yet. She did start vitamins. Here for evaluation. Past Medical History/Immunizations: History reviewed. No pertinent past medical history. Tetanus received in last 5 years: Yes Allergies: Allergies Allergen Reactions Morphine Anaphylaxis Motrin [Ibuprofen] Hives Past Social History: Substance & Sexual Activity No substance use or sexual activity history on file. Past Surgical History: History reviewed. No pertinent surgical history. Review of Systems: Review of Systems Constitutional: Negative for chills and fever. Respiratory: Negative for cough and shortness of breath. Cardiovascular: Negative for chest pain. Gastrointestinal: Negative for abdominal pain. Genitourinary: Positive for vaginal bleeding. Negative for dysuria. Musculoskeletal: Negative for arthralgias, neck pain and neck stiffness. Skin: Negative for wound. Neurological: Negative for dizziness. Psychiatric/Behavioral: Negative for agitation. Endocrine: Negative for goiter. Physical Exam: ED Triage Vitals [08/07/231955] Weight 71.1 kg (156 lb 12.8 oz) Actual or estimated Actual Height 1.651 m (5' 5") BP (!) 149/99 Pulse 104 Resp 18 Temp 37.2 ?C (98.9 ?F) Temp source Oral SpO2 100 % Measured on Room air Physical Exam Vitals and nursing note reviewed. Constitutional: Appearance: Normal appearance. HENT: Head: Normocephalic and atraumatic. Cardiovascular: Rate and Rhythm: Normal rate and regular rhythm. Pulses: Normal pulses. Pulmonary: Effort: Pulmonary effort is normal. No respiratory distress. Abdominal: General: There is no distension. Palpations: Abdomen is soft. There is no mass. Tenderness: There is no abdominal tenderness. There is no guarding or rebound. Hernia: No hernia is present. Musculoskeletal: General: Normal range of motion. Cervical back: Neck supple. Skin: General: Skin is warm and dry. Neurological: General: No focal deficit present. Mental Status: She is alert and oriented to person, place, and time. Radiology: No orders to display Lab Results: Lab Results POCT TEST - Normal Result Value Ref Range POCT PREG Positive On board controls acceptable with C Line Yes EKG: If EKG completed, see Procedure Note. Orders and Treatments: Orders Placed This Encounter Procedures POCT TEST No orders of the defined types were placed in this encounter. First Provider Eval: ED Events Date/Time Event User Comments 08/07/231952 Medical Screening Begins NENA GREGORY DO -- 08/07/231952 First Provider Evaluation NENA GREGORY DO -- ED COURSE Diagnosis/Impression as of 08/07/232028 Vaginal bleeding Vaginal bleeding affecting early Procedures: Procedures MDM: Medical Decision Making The patient presents from home for evaluation for blood on the toilet paper while she wipes. She reports she recently found that she was and that her last menstrual period was June 25. She is 5 para 3-0-1-3. No abdominal pain or cramping. She does have some nausea but no vomiting. She is not needing to wear a pad and gets no blood on her underwear. She has not followed up with REPAIR CLERK as of yet. She did start vitamins. Vital signs are stable in the ER. Her abdomen is soft and nontender on examination. No concern for ectopic based on her current presentation. Will check a UPT. Anticipate discharge home later. 2027 -the patient is doing well here in the ER. Her UPT is positive. Recommend she take vitamins and follow-up with her OB in 1 week. She remained stable here in the ER and is okay for discharge home with PCP follow-up. Problems Addressed: Vaginal bleeding: acute illness or injury Vaginal bleeding affecting early : acute illness or injury Amount and/or Complexity of Data Reviewed Labs: ordered. Decision-making details documented in ED Course. Risk OTC drugs. Flowsheet Documentation: Scoring Tools: No data recorded Disposition/Condition: ED Disposition ED Disposition Disch - Home Condition Stable Comment -- Discharge Medications: Patient's Medications No medications on file Follow-up: Contact information for follow-up Johana Koenig DO Relationship: PCP - [facility] [address] [address] Electronically signed by: Nena Gregory DO 08/07/232028 [facility]
--- NOTE | 2024-06-09 19:46 | RAD REPORT ---
Exam:Knee Left 3 View HISTORY: Left knee pain FINDINGS: No fracture or dislocation seen No bone or joint abnormality noted. If the patient's pain persists follow-up x-ray in one month would be recommended for reevaluation.
--- NOTE | 2024-06-09 20:10 | ER ---
Nurse's Notes [facility] Name: Sharad Velarde Age: 28 yrs Sex: Female : 1995 Arrival Date: 06/09/2024 Time: 17:50 Bed 19 Private MD: Diagnosis: Pain in left knee Presentation: 06/09 18:33 Chief complaint: Patient states: left knee pain that has been on and off since 2020 but kc6 getting worse over the last day. Coronavirus screen: At this time, the client does not indicate any symptoms associated with coronavirus-19. Ebola Screen: No symptoms or risks identified at this time. Initial Sepsis Screen: Does the patient meet any 2 criteria? No. Patient's initial sepsis screen is negative. Does the patient have a suspected source of infection? No. Patient's initial sepsis screen is negative. Risk Assessment: Do you want to hurt yourself or someone else? Patient reports no desire to harm self or others. Onset of symptoms was June 09, 2024. 18:33 Method Of Arrival: Ambulatory [facility] 18:33 Acuity: PENNY 4 kc6 Triage Assessment: 19:53 General: Appears in no apparent distress. comfortable, Behavior is calm, cooperative, bm8 appropriate for age. Pain: Complains of pain in left leg. 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 - Infectious Disease History:: Denies. - Social history:: Smoking status: unknown. Screenin:36 [facility] ED Fall Risk Assessment (Adult) History of falling in the last 3 months, kc6 including since admission No falls in past 3 months (0 pts) Confusion or Disorientation No (0 pts) Intoxicated or Sedated No (0 pts) Impaired Gait No (0 pts) Mobility Assist Device Used No (0 pt) Altered Elimination No (0 pt) Score/Fall Risk Level 0 - 2 = Low Risk Oriented to surroundings, Maintained a safe environment, Educated pt \T\ family on fall prevention, incl call for assistance when getting out of bed. Abuse screen: Denies threats or abuse. Denies injuries from another. Nutritional screening: No deficits noted. Tuberculosis screening: No symptoms or risk factors identified. Assessment: 19:47 Reassessment: Patient appears in no apparent distress at this time. Patient and/or bm8 family updated on plan of care and expected duration. Pain level reassessed. Patient is alert, oriented x 3, equal unlabored respirations, skin warm/dry/pink. Patient denies pain at this time. Patient states feeling better. Vital Signs: 18:33 BP 177 / 98; Pulse 108; Resp 16 S; Temp 98.8(O); Pulse Ox 100% on R/A; Weight 63.5 kg kc6 (R); Height 5 ft. 5 in. (R); Pain 10/10; 19:47 BP 165 / 104; Pulse 102; Resp 18; Temp 98.8; Pulse Ox 100% ; Pain 3/10; bm8 18:33 Body Mass Index 23.30 (63.50 kg, 165.1 cm) kc6 18:33 Pain Scale: Adult kc6 19:47 Pain Scale: Adult bm8 Harpreet Coma Score: 19:47 Eye Response: spontaneous(4). Motor Response: obeys commands(6). Verbal Response: bm8 oriented(5). Total: 15. ED Course: 17:54 Patient arrived in ED. cj3 18:03 Franklyn Lozano FNP-C [facility]5 18:03 Boris Walsh MD is Attending Physician. dr5 18:35 Triage completed. kc6 18:35 Arm band placed on. kc6 18:36 Patient has correct armband on for positive identification. Bed in low position. Call kc6 light in reach. Side rails up X 1. Pulse ox on. NIBP on. Door closed. Noise minimized. Lights dimmed. Pillow given. Verbal reassurance given. 18:37 Patient maintains SpO2 saturation greater than 95% on room air. kc6 18:41 Loreta Bower, MANISHA is Primary Nurse. kc6 18:57 Report given to MANISHA Andrew. kc6 19:08 Knee Left 3 View XRAY In Process Unspecified. EDMS 19:47 Provided Education on: post er care. bm8 19:47 No provider procedures requiring assistance completed. Patient did not have IV access bm8 during this emergency room visit. 20:10 Ramin Art MD is Referral Physician. dr5 20:10 José Miguel Rincon MD is Referral Physician. dr5 Administered Medications: 20:25 Drug: Acetaminophen PO 1000 mg PO once Route: PO; bm8 20:25 Follow up: Response: No adverse reaction bm8 Medication: 19:47 VIS not applicable for this client. bm8 Outcome: 19:47 Discharged to home ambulatory, bm8 19:47 Condition: stable 19:47 Discharge instructions given to patient, Instructed on discharge instructions, follow up and referral plans. no drinking with medication, no driving heavy equipment, safety practices, Demonstrated understanding of instructions, follow-up care, medications, Prescriptions given X 2, 20:10 Discharge ordered by MD. dr5 20:25 Patient left the ED. bm8 Signatures: Dispatcher [employer] EDMS Loreta Bower RN RN kc6 Kamran Rincon RN RN bm8 Franklyn Lozano, MUFFLER TENDER-C MUFFLER TENDER-Cdr5 Mikayla Colby cj3 Corrections: (The following items were deleted from the chart) 18:41 18:33 Chief complaint: Patient states: left knee pain that has been on and off for some kc6 time but getting worse. kc6 18:41 18:33 BP 177 / 98; Pulse 85bpm; Resp 16bpm; Spontaneous; Pulse Ox 100% RA; 63.5 kg kc6 Reported; Height 5 ft. 5 in. Reported; BMI: 23.3; Pain 10, Adult; kc6
--- NOTE | 2024-06-09 20:10 | EDPHYS ---
Physician Documentation [facility] Name: Sharad Velarde Age: 28 yrs Sex: Female : 1995 Arrival Date: 06/09/2024 Time: 17:50 Bed 19 Private MD: ED Physician Boris Walsh HPI: 06/09 20:12 This 28 yrs old Black Female presents to ER via Ambulatory with complaints of Knee Pain.dr5 20:12 Onset: The symptoms/episode began/occurred acutely. Patient is a 28-year-old female dr5 with history of hypertension, diabetes, asthma coming in with left knee pain has been going on for 3 years. Patient reports that 3 years ago she bent down and hurt her left knee when picking up boxes. Patient reports that she feels like there is a tiny paper cut below her kneecap. Patient denies being seen by orthopedics yet. Patient is ambulatory with steady gait. Patient does report that she is . 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 - Infectious Disease History:: Denies. - Social history:: Smoking status: unknown. ROS: 20:12 Constitutional: as per hpi dr5 Exam: 20:12 Constitutional: This is a well developed, well nourished patient who is awake, alert, dr5 and in no acute distress. Head/Face: Normocephalic, atraumatic. Neck: Trachea midline, no thyromegaly or masses palpated, and no cervical lymphadenopathy. Supple, full range of motion without nuchal rigidity, or vertebral point tenderness. No Meningismus. Chest/axilla: Normal chest wall appearance and motion. Nontender with no deformity. No lesions are appreciated. Cardiovascular: Regular rate and rhythm with a normal S1 and S2. Normal PMI, no JVD. No pulse deficits. Respiratory: Lungs have equal breath sounds bilaterally, clear to auscultation. No rales, rhonchi or wheezes noted. No increased work of breathing, no retractions or nasal flaring. Abdomen/GI: Soft, non-tender, non-distended Back: No spinal tenderness. No costovertebral tenderness. Full range of motion. Skin: Warm, dry with normal turgor. Normal color with no rashes, no lesions, and no evidence of cellulitis. Neuro: Awake and alert, GCS 15, oriented to person, place, time, and situation. Cranial nerves II-XII grossly intact. Motor strength 5/5 in all extremities. Sensory grossly intact. Cerebellar exam normal. Normal gait. 20:12 Musculoskeletal/extremity: Extremities: noted in the left knee: There is no evidence of abrasion, contusion, decreased ROM, ecchymosis, pain, rash, swelling, tenderness, ROM: no acute changes, Circulation is intact in all extremities. Sensation intact. Vital Signs: 18:33 BP 177 / 98; Pulse 108; Resp 16 S; Temp 98.8(O); Pulse Ox 100% on R/A; Weight 63.5 kg kc6 (R); Height 5 ft. 5 in. (R); Pain 10/10; 19:47 BP 165 / 104; Pulse 102; Resp 18; Temp 98.8; Pulse Ox 100% ; Pain 3/10; bm8 18:33 Body Mass Index 23.30 (63.50 kg, 165.1 cm) kc6 18:33 Pain Scale: Adult kc6 19:47 Pain Scale: Adult bm8 Harpreet Coma Score: 19:47 Eye Response: spontaneous(4). Motor Response: obeys commands(6). Verbal Response: bm8 oriented(5). Total: 15. MDM: 18:04 Medical Screening Exam initiated dr5 20:12 Differential diagnosis: abrasion, contusion, sprain, strain. Data reviewed: vital dr5 signs, nurses notes. I considered the following discharge prescriptions or medication management in the emergency department Medications were administered in the Emergency Department. See MAR. Care significantly affected by the following chronic conditions: Diabetes, Hypertension, Asthma. Care significantly affected by the following Social Determinants of Health: Poor access to healthcare and/or lack of insurance, Poor access to transportation, Problems related to employment. Counseling: I had a detailed discussion with the patient and/or guardian regarding the historical points, exam findings, and any diagnostic results supporting the discharge/admit diagnosis, the presence of at least one elevated blood pressure reading (>120/80) during this emergency department visit, radiology results, the need for outpatient follow up, for definitive care, a family practitioner, a orthopedic surgeon, to return to the emergency department if symptoms worsen or persist or if there are any questions or concerns that arise at home. Medication response: Response to treatment: the patient's symptoms have markedly improved after treatment. ED course: CD of images as well as report printed out and given to patient to take to orthopedics in about a week. I did refill patient's high blood pressure medications since patient did run out and her blood pressure is elevated today. Patient reports that Tylenol did help her pain a small amount. Will have patient follow-up with orthopedic for further management and educated patient to take x-ray report as well as CD to the orthopedics appointment. All questions answered. Strict ER precautions given. 06/09 18:28 Order name: Knee Left 3 View XRAY; Complete Time: 19:53 dr5 Administered Medications: 20:25 Drug: Acetaminophen PO 1000 mg PO once Route: PO; bm8 20:25 Follow up: Response: No adverse reaction bm8 Disposition: 20:34 Co-signature as Attending Physician, Boris Walsh MD I reviewed the patient's care rt provided by the Advanced Practice Provider and agree with the diagnosis and treatment plan. Disposition Summary: 06/09/24 20:10 Discharge Ordered Notes: Location: Home dr5 Condition: Stable dr5 Diagnosis - Pain in left knee dr5 Followup: dr5 - With: Emergency Department - When: - Reason: Worsening of condition Followup: dr5 - With: Private Physician - When: 1 week - Reason: Recheck today's complaints, Continuance of care, Re-evaluation by your physician Followup: dr5 - With: Ramin Art MD - When: 1 week - Reason: Recheck today's complaints, Continuance of care, Re-evaluation by your physician Followup: dr5 - With: José Miguel Rincon MD - When: 1 week - Reason: Recheck today's complaints, Continuance of care, Re-evaluation by your physician Discharge Instructions: - Discharge Summary Sheet dr5 - Acute Knee Pain, Adult dr5 Forms: - Medication Reconciliation Form dr5 - Patient Portal Instructions dr5 - Leadership Thank You Letter dr5 Prescriptions: - amlodipine 5 mg Oral tablet - take 1 tablet ORAL route daily; 31 tablet; Refills: 0, Product Selection dr5 Permitted - Lisinopril 10 mg Oral Tablet - take 1 tablet ORAL route once daily; 20 tablet; Refills: 0, Product Selection dr5 Permitted Signatures: Dispatcher [employer] Loreta Ayers, RN RN kc6 Boris Walsh MD MD rt Kamran Rincon RN RN bm8 Franklyn Lozano, ANNEALING TORCH OPERATOR-C ANNEALING TORCH OPERATOR-Cdr5
[2024-06-09] MEDS ORDERED: ACETAMINOPHEN 500 MG TAB ONE (20:23)
[2024-06-09 21:56] VITALS: TEMP 98.8; O2SAT 100
[2024-06-09 21:58] VITALS: BP 165/104
== END 2024-06-09 20:25 | disposition home or self-care (01) ==
LOC: ER 17:50
DX: M25.562 Pain in left knee (principal)
CPT/HCPCS: 99284

== ENCOUNTER 2024-06-24 17:48 | Emergency (ER) | payer OTHER ==
--- OUTSIDE RECORDS SUMMARY | 2024-06-24 17:53 | XMS REPORT | Continuity of Care Document ---
Author Name Unknown Address [address] [facility] [place] [address] Organization [facility] [place] Address [address] 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 Phone JOHANA KOENIG Primary Care Physician Ly vailable VINITA GARRISON Attending Clinician Unavailable Vinita Christopher Attending Clinician [phone] MAUREEN MCKEON Attending Clinician Unavailab Maureen Duque DO Attending Clinician NENA GREGORY Attending Clinician Unavailab NENA Conte Attending Clinician Unavailab le PEDRO LUIS FLORES Attending Clinician Unavailab le Will Rowell Attending Clinician [phone] SARAH ARREGUIN Attending Clinician Unavailable DEVAUGHN DEWITT Attending Clinician Un available REGINE GREEN Attending Clinician Unavail able VINITA GARRISON Admitting Clinician Unavailable PEDRO LUIS FLORES Admitting Clinician Unavailab le Payers Payer Name Policy Type Policy Number Effective Date Expirati on Date Source [place] [facility] [id number] 2023 00:00:00 [employer] [place] - OUT OF STATE [id number] 2023 00:00:00 MEDICAID PENDING PENDING 2023 00:00:00 2023 00:00:00 Problems Condition Name Condition Details Condition Category Status Onset Date Resolution Date Last Treatment Date Treating Clinician Comments Source Vaginal bleeding affecting early Vaginal bleeding affecting early Disease Active 08-20 00:00: 00 [facility] Hyperglyce jamal Hyperglyce jamal Disease Active 08-20 00:00: 00 [facility] Essential hypertensi on Essential hypertensi on Disease Active 08-20 00:00: 00 [facility] Subchorion ic hemorrhage of placenta in first trimester Subchorion ic hemorrhage of placenta in first trimester Disease Active 08-20 00:00: 00 [facility] Threatened Threatened Disease Active 08-20 00:00: 00 [facility] SORE THROAT SORE THROAT Active 12/30/2022 [facility] Diagnosis Active 2022-02 08:00: 00 2023-01-25 08:47:00 Mohan Tolentino BLOOD PRESSURE CHEST PAIN BLOOD PRESSURE CHEST PAIN Active 02/03/2022 [facility] Diagnosis Active 2021-02 00:00: 00 2022-02-15 04:49:00 Mohan Tolentino Allergies, Adverse Reactions, Alerts Allergy Name Allergy Type Status Severity Reaction(s) Onset Date Inactive Date Treating Clinician Comments Source ORANGE DRUG INGREDI Active Unknown-Cmnt 08-20 00:00: 00 [facility] [place] Propensi ty to adverse reaction s Active Unknown - See comments 08-20 00:00: 00 [facility] Morphine Propensi ty to adverse reaction s Active Anaphylaxis 08-06 00:00: 00 [facility] Ibuprofe n Propensi ty to adverse reaction s Active Hives 08-06 00:00: 00 [facility] MORPHINE DRUG INGREDI Active Anaphylaxis 08-06 00:00: 00 [facility] IBUPROFE N DRUG INGREDI Active Hives 08-06 00:00: 00 [facility] morphine morphine Active [facility]oria [facility] Tolentino Motrin Motrin Active [facility] Tolentino Social History Social Habit Start Date Stop Date Quantity Comments Source Sexual orientation [facility] Sex assigned at 1995 00:00:00 1995 00:00:00 [facility] Smoking Status Start Date Stop Date Source Tobacco smoking consumption unknown [facility] Tobacco smoking status Deandre Tolentino Medications Ordered Medication Name Filled Medication Name Start Date Stop Date Current Medication? Ordering Clinician Indication Dosage Frequency Signature (SIG) Comments Components Source NaCl 0.9% (NS) bolus infusion 2,028 mL 2023-02 19:30: 00 01-03 20:30 :00 No [id number] 30mL/kg at 999 mL/hr, 2,028 mL (30 mL/kg ?67.6 kg), IV Infusion, ONCE, 1 dose, On Tue01/04/24 at 1330, FAISAL [facility] D5W 0.45% NaCl (1/2NS) 1 L + KCL 20 mEq 2023-02 19:05: 25 Yes [id number] IV Infusion, at 200 mL/hr, PRN - SEE INSTRUCTIO NS, Starting on Tue01/04/24 at 1305, Until Discontinu ed, FAISAL, Blood glucose control [facility] insulin regular human (HUMULIN R) injection 10 Units 2023-02 06:00: 00 12-31 05:15 :00 No 10U 10 Units, IV Push, ONCE, 1 dose, On 01/01/24 at 0100, FAISAL, Indication for insulin: Hyperglyce jamal [facility] insulin glargine (LANTUS U-100) injection 20 Units 2023-02 04:45: 00 12-31 04:13 :00 No 20U 20 Units, Subcutaneo us, ONCE, 1 dose, On 12/31/23 at 2345, FAISAL [facility] NaCl 0.9% (NS) bolus infusion 1,000 mL 2023-02 04:00: 00 12-31 05:03 :00 No 1000mL at 999 mL/hr, 1,000 mL, IV Infusion, ONCE, 1 dose, On 12/31/23 at 2300, STAT [facility] insulin glargine U-300 conc (TOUSARAYO MAX U-300 SOLOSTAR) 300 unit/mL (3 mL) In 2023-02 00:00: 00 01-30 05:59 :00 No [id number] 9101 25U inject 25 Units under the skin every evening for 30 days. [facility] fluconazole (DIFLUCAN) tablet 150 mg 09-21 08:15: 00 09-21 07:27 :00 No 150mg 150 mg, Oral, ONCE, 1 dose, On Jackie 09/22/23 at 0315, FAISAL, Reason for Anti-Infec tive: Documented Infection, Documented Infection Site: Pelvic, Duration of Therapy: Once (ED) [facility] NaCl 0.9% (NS) bolus infusion 1,000 mL 08-21 02:30: 00 08-21 05:00 :00 No 1000mL at 999 mL/hr, 1,000 mL, IV Infusion, ONCE, 1 dose, [facility] 650 mg 08-21 02:00: 00 08-21 02:01 :00 No 650mg 650 mg, Oral, ONCE, 1 dose, On [place] 08/21/23 at 2100, FAISAL [facility] ondansetron (ZOFRAN (PF)) injection 4 mg 08-10 05:00: 00 08-10 04:18 :00 No 4mg 4 mg, Slow IV Push, ONCE, 1 dose, On Jackie 08/11/23 at 0000, FAISAL [facility] acetaminoph en (TYLENOL) tablet 1,000 mg 08-10 05:00: 00 08-10 04:18 :00 No 1000mg 1,000 mg, Oral, ONCE, 1 dose, On [facility] 08/11/23 at 0000, FAISAL [facility] clindamycin (CLEOCIN HCL) capsule 300 mg 08-10 04:15: 00 08-10 03:47 :00 No 300mg 300 mg, Oral, ONCE NOW, 1 dose, On Tue08/10/23 at 2315, FAISAL, Reason for Anti-Infec tive: Documented Infection, Documented Infection Site: Skin / Soft Tissue, Duration of Therapy: Once (ED), Restricted use approved by: ED PROVIDER [facility] ondansetron (ZOFRAN (PF)) injection 4 mg 08-10 02:45: 00 08-10 02:18 :00 No 4mg 4 mg, Slow IV Push, ONCE, 1 dose, On Tue08/10/23 at 2145, [facility] NaCl 0.9% (NS) bolus infusion 1,000 mL 08-10 02:45: 00 08-10 04:19 :00 No 1000mL at 999 mL/hr, 1,000 mL, IV Infusion, ONCE, 1 dose, On Tue08/10/23 at 2145, FAISAL [facility] ondansetron 4 mg disintegrat ing tablet 08-09 00:00: 00 Yes [id number] 4mg Take 1 tablet by mouth every 8 (eight) hours as needed for Nausea and Vomiting (N/V). [facility] clindamycin 300 mg capsule 08-09 00:00: 00 08-20 04:59 :00 No [id number] 300mg Take 1 capsule by mouth in the morning and 1 capsule at noon and 1 capsule in the evening. Do all this for 10 days. [facility] amoxicillin 400 mg/5 mL oral liquid 2022-02 05:38: 00 Yes 1,000 mg = 12.5 mL, PO, Q24H, X 10 day, # 125 mL, 0 Refill(s) Mohan Tolentino amoxicillin 500 mg oral tablet 2022-02 05:29: 00 No 1,000 mg = 2 tab, PO, Q24H, X 10 day, # 20 tab, 0 Refill(s) [facility] Tylenol 2022-02 03:49: 00 No Notes: Do not exceed 4 gm/day. (Same as: Tylenol) Mohan Tolentino amLODIPine 5 mg oral tablet 2021-02 04:31: 00 Yes 5 mg = 1 tab, PO, Daily, # 30 tab, 0 Refill(s) Mohan Tolentino Vital Signs Vital Name Observation Time Observation Value Comments S ource Systolic blood pressure 2024-01-04 21:00:00 150 mm[Hg] [facility] Diastolic blood pressure 2024-01-04 21:00:00 91 mm[Hg] [facility] Heart rate 2024-01-04 21:00:00 97 /min [facility] Body temperature 2024-01-04 21:00:00 37 Roseanna [facility] Respiratory rate 2024-01-04 21:00:00 15 /min [facility] Oxygen saturation in Arterial blood by Pulse oximetry 2024-01-04 21:00:00 97 /min [facility] Body height 2024-01-04 17:31:00 167.6 cm [facility] Body weight 2024-01-04 17:31:00 67.586 kg [facility] BMI 2024-01-04 17:31:00 24.05 kg/m2 [facility] Systolic blood pressure 2024-01-01 05:17:00 149 mm[Hg] [facility] Diastolic blood pressure 2024-01-01 05:17:00 97 mm[Hg] [facility] Heart rate 2024-01-01 05:17:00 99 /min [facility] Body temperature 2024-01-01 05:17:00 36.72 Roseanna [facility] Respiratory rate 2024-01-01 05:17:00 16 /min [facility] Oxygen saturation in Arterial blood by Pulse oximetry 2024-01-01 05:17:00 100 /min [facility] Body height 2024-01-01 03:05:00 165.1 cm [facility] Body weight 2024-01-01 03:05:00 67.586 kg [facility] BMI 2024-01-01 03:05:00 24.79 kg/m2 [facility] Systolic blood pressure 2023-09-22 07:21:00 165 mm[Hg] [facility] Diastolic blood pressure 2023-09-22 07:21:00 100 mm[Hg] [facility] Heart rate 2023-09-22 07:21:00 119 /min [facility] Body temperature 2023-09-22 07:21:00 37.22 Roseanna [facility] Respiratory rate 2023-09-22 07:21:00 16 /min [facility] Body height 2023-09-22 07:21:00 165.1 cm [facility] Body weight 2023-09-22 07:21:00 70.625 kg [facility] BMI 2023-09-22 07:21:00 25.91 kg/m2 [facility] Oxygen saturation in Arterial blood by Pulse oximetry 2023-09-22 07:21:00 100 /min [facility] Systolic blood pressure 2023-08-22 05:00:00 135 mm[Hg] [facility] Diastolic blood pressure 2023-08-22 05:00:00 97 mm[Hg] [facility] Heart rate 2023-08-22 05:00:00 97 /min [facility] Body temperature 2023-08-22 05:00:00 36.83 Roseanna [facility] Respiratory rate 2023-08-22 05:00:00 16 /min [facility] Oxygen saturation in Arterial blood by Pulse oximetry 2023-08-22 05:00:00 100 /min [facility] Body height 2023-08-22 01:36:00 165.1 cm [facility] Body weight 2023-08-22 01:36:00 69.446 kg [facility] BMI 2023-08-22 01:36:00 25.48 kg/m2 [facility] Systolic blood pressure 2023-08-11 04:00:00 131 mm[Hg] [facility] Diastolic blood pressure 2023-08-11 04:00:00 70 mm[Hg] [facility] Heart rate 2023-08-11 04:00:00 109 /min [facility] Body temperature 2023-08-11 04:00:00 38.28 Roseanna [facility] Respiratory rate 2023-08-11 04:00:00 16 /min [facility] Oxygen saturation in Arterial blood by Pulse oximetry 2023-08-11 04:00:00 97 /min [facility] Body height 2023-08-11 01:07:00 165.1 cm [facility] Body weight 2023-08-11 01:07:00 70.761 kg [facility] BMI 2023-08-11 01:07:00 25.96 kg/m2 [facility] Systolic blood pressure 2023-08-08 00:56:00 149 mm[Hg] [facility] Diastolic blood pressure 2023-08-08 00:56:00 99 mm[Hg] [facility] Heart rate 2023-08-08 00:56:00 104 /min [facility] Body temperature 2023-08-08 00:56:00 37.17 Roseanna [facility] Respiratory rate 2023-08-08 00:56:00 18 /min [facility] Body height 2023-08-08 00:56:00 165.1 cm [facility] Body weight 2023-08-08 00:56:00 71.124 kg [facility] BMI 2023-08-08 00:56:00 26.09 kg/m2 [facility] Oxygen saturation in Arterial blood by Pulse oximetry 2023-08-08 00:56:00 100 /min [facility] Temperature Oral (F) 2023-01-03 04:57:00 99.3 F [facility] Heart Rate 2023-01-03 04:57:00 Deandre Tolentino Respitory Rate 2023-01-03 04:57:00 M lui Tolentino Systolic (mm Hg) 2023-01-03 04:57:00 [facility] Diastolic (mm Hg) 2023-01-03 04:57:00 [facility] Height 2023-01-03 02:50:00 5 [ft_i] [facility] BMI Calculated 2023-01-03 02:50:00 [facility] Weight 2023-01-03 02:50:00 [facility] Systolic (mm Hg) 2023-01-03 02:50:00 [facility] Diastolic (mm Hg) 2023-01-03 02:50:00 [facility] Heart Rate 2023-01-03 02:50:00 [facility] Respitory Rate 2023-01-03 02:50:00 [facility] Temperature Oral (F) 2023-01-03 02:50:00 104 F [facility] Height 2022-02-04 02:15:00 5 [ft_i] [facility] BMI Calculated 2022-02-04 02:15:00 M [facility] Weight 2022-02-04 02:15:00 [facility] Systolic (mm Hg) 2022-02-04 02:15:00 [facility] Diastolic (mm Hg) 2022-02-04 02:15:00 [facility] Heart Rate 2022-02-04 02:15:00 [facility] Procedures Procedure Date / Time Performed Performing Clinician Source LACTIC ACID WHOLE BLOOD 2024-01-04 20:24:00 Peter Garrison [facility] POCT GLUCOSE(AGE >30DAYS) 2024-01-04 19:35:00 Vinita Garrison [facility] POCT GLUCOSE (AUTOMATED) 2024-01-04 19:33:00 Vinita Garrison [facility] PHOSPHORUS 2024-01-04 19:20:00 Vinita Garrison [facility] MAGNESIUM 2024-01-04 19:20:00 Vinita Garrison [facility] BASIC METABOLIC PANEL (NA, K, CL, CO2, GLUCOSE, BUN, CREATININE, CA) 2024-01-04 19:20:00 Vinita Garrison [facility] XR CHEST 2 VW 2024-01-04 18:24:14 Vinita Garrison [facility] POCT TEST 2024-01-04 18:13:00 Abbey Garrison [facility] COMP. METABOLIC PANEL ([id number]) 2024-01-04 18:12:00 Vinita Garrison [facility] CBC WITH DIFF 2024-01-04 18:12:00 Vinita Garrison [facility] GLYCOSYLATED HEMOGLOBIN (A1C) 2024-01-04 18:12[facility]-04 [facility]:12[facility] FOR GROUP A 2024-01-04 18:12[facility]B RSV COVID NAAT 2024-01-04 18:12[facility] AC [facility] + LACTIC ACID 2024-01-04 18:10:00 Vinita Garrison [facility] POCT GLUCOSE (AUTOMATED) 2024-01-04 17:29:00 Doctor Unassigned, Carson [facility] POCT GLUCOSE(AGE >30DAYS) 2024-01-01 05:10:00 Linda [facility] POCT GLUCOSE (AUTOMATED) 2024-01-01 05:08:00 Linda [facility] BASIC METABOLIC PANEL (NA, K, CL, CO2, GLUCOSE, BUN, CREATININE, CA) 2024-01-01 04:40:00 Linda [facility] POCT GLUCOSE(AGE >30DAYS) 2024-01-01 03:39:00 Linda [facility] POCT GLUCOSE (AUTOMATED) 2024-01-01 03:38:00 Linda [facility] POCT GLUCOSE(AGE >30DAYS) 2023-09-22 07:27:00 Nena Gregory [facility] POCT GLUCOSE (AUTOMATED) 2023-09-22 07:20:00 Nena Gregory [facility] POCT GLUCOSE(AGE >30DAYS) 2023-08-22 04:02:00 Pedro Luis Flores [facility] ABORH CONFIRMATION (LAB ONLY) 2023-08-22 03:39:00 Pedro Luis Flores [facility] US FIRST TRIMESTER LESS THAN 14 WEEKS 2023-08-22 03:13:50 Pedro Luis Flores [facility] COMP. METABOLIC PANEL ([id number]) 2023-08-22 01:53:00 Pedro Luis Flores [facility] TOTAL BETA HCG ASSAY 2023-08-22 01:53:00 Hanna Flores [facility] CBC WITH DIFF 2023-08-22 01:53:00 Pedro Luis Flores [facility] URINALYSIS 2023-08-22 01:53:00 Pedro Luis Flores [facility] HB ABO GROUPING 2023-08-22 01:53:00 Pedro Luis Flores [facility] INCISION AND DRAINAGE 2023-08-11 03:06:13 Melody Herman [facility] BASIC METABOLIC PANEL (NA, K, CL, CO2, GLUCOSE, BUN, CREATININE, CA) 2023-08-11 02:16:00 Will Herman [facility] CBC WITH DIFF 2023-08-11 02:16:00 [facility] PO[facility] TEST 2023-08-08 01:14:00 Lashea Gregory ra [facility] Encounters Start Date/Time End Date/Time Encounter Type Admission Type Attending [facility] Facility Care Department Encounter ID Source 2024-01-04 11:36:00 2024-01-04 15:24:00 Emergency X VINITA GARRISON [facility] ERT [id number] [facility] 2024-01-04 11:36:00 2024-01-04 15:24:00 Emergency Vinita Garrison [facility] [id number] 350.1.13.10 [id number] [id number] [facility] 2023-12-31 22:09:00 2024-01-01 00:34:00 Emergency X MAUREEN MCKEON [facility] ERT [id number] [facility] 2023-12-31 22:09:00 2024-01-01 00:34:00 Emergency Maureen Mckeon [facility] [id number] 350.1.13.10 [id number] [id number] [facility] 2023-09-22 02:25:00 2023-09-22 02:50:00 Emergency X NENA GREGORY [facility] ERT [id number] [facility] 2023-09-22 02:25:00 2023-09-22 02:50:00 Emergency Nena Gregory [facility] [id number] 350.1.13.10 4.2.7.2.686 [id number] [facility] 2023-08-21 20:41:00 2023-08-22 00:20:00 Emergency X PEDRO LUIS FLORES [facility] ERT [id number] [facility] 2023-08-21 20:41:00 2023-08-22 00:20:00 Emergency Pedro Luis Flores [facility] [id number] 350.1.13.10 4.2.7.2.686 [id number] [facility] 2023-08-10 20:10:00 2023-08-10 23:25:00 Emergency SlickWill torrez [facility] 1.2.840.114 350.1.13.10 4.2.7.2.686 [id number] [facility] 2023-08-07 19:59:00 2023-08-07 20:50:00 Emergency X NENA GREGORY [facility] ERT [id number] [facility] 2023-08-07 19:59:00 2023-08-07 20:50:00 Emergency Nena Gregory [facility] [id number] 350.1.13.10 4.2.7.2.686 [id number] [facility] 2023-03-10 08:30:00 2023-03-10 08:30:00 Outpatient SARAH ARREGUIN [id number] Bretha Gentile 2023-01-02 20:30:00 2023-01-02 23:38:00 Emergency E DEVAUGHN DEWITT [facility] [id number] [facility] 2022-02-03 20:12:00 2022-02-03 23:20:00 Emergency E NORMA REGINE [facility] [address] Mohan munoz Results Test Description Test Time Test Comments Results Result Co mments Source [facility]2024-01-04 20:28:38* Test Item Value Reference Range Interpretation Comme nts HGB A1C (test code = 4548-4) 11.8 % 4.0-5.7 H CALVIN (test code = CALVIN) Reference RangesNormal: <5.7%Prediabetes: 5.7 - 6.4%Diabetes: > 6.5% Lab Interpretation (test code = 63876-9) Abnormal [facility] [id number] 20:21:41* Test Item Value Reference Range Interpretation Comme nts MAGNESIUM (test code = 5228145225) 1.9 mg/dL 1.7-2.4 Lab Interpretation (test cod e = 29309-2) Normal [facility] [id number] 20:21:36* Test Item Value Reference Range Interpretation Comme nts PHOSPHORUS (test code = 8086614999) 2.6 mg/dL 2.5-5.0 Lab Interpretation (test cod e = 50892-9) Normal [facility] (Na, K, Cl, CO2, Glucose, BUN, Creatinine, Ca)2024-01-04 19:54:12* Test Item Value Reference Range Interpretation Comme nts NA (test code = 5569487995) 133 mmol/L 135-145 L K (test code = 8255689901) 3.3 mmol/L 3.5-5.0 L CL (test code = 8393368329) 99 mmol/L 98-108 CO2 TOTAL (test code = 1005451947) 22 mmol/L 23-31 L AGAP (test code = 8545558582) 12 2-16 BUN (test code = 6706423657) 18 mg/dL 7-23 GLUCOSE (test code = 0796089471) 179 mg/dL 70-110 H CREATININE (test code = 2160-0) 0.92 mg/dL 0.50-1.04 CALCIUM (test code = 0639480208) 8.8 mg/dL 8.6-10.6 eGFR (test code = 99423-0) 88.2 mL/min/1.73m2 CKD-EPI eGFR (2020). Assuming creatinine has been stable day-to-day for at least three months, the eGFR indicates Category G2 (60 - 89 mL/min/1.73 m2) Lab Interpretation (test code = 99928-5) Abnormal [facility] GLUCOSE (AUTOMATED)2024-01-04 19:35:00* Test Item Value Reference Range Interpretation Comme nts POCT GLU (test code = 8894333855) 138 mg/dL 70-110 H Lab Interpretation (test cod e = 76927-8) Abnormal [facility] GLUCOSE(AGE >30DAYS)2024-01-04 19:35:00* Test Item Value Reference Range Interpretation Comme nts POCT Glu (age>30days) (test code = 3342) 138 mg/dL 70-110 A Lab Interpretation (test cod e = 82133-7) Abnormal [facility]. METABOLIC PANEL (13657)2024-01-04 19:28:31* Test Item Value Reference Range Interpretation Comme nts NA (test code = 8350845979) 132 mmol/L 135-145 L K (test code = 8356734157) 3.5 mmol/L 3.5-5.0 CL (test code = 8127354199) 99 mmol/L 98-108 CO2 TOTAL (test code = 1017450131) 17 mmol/L 23-31 L AGAP (test code = 6732998942) 16 2-16 BUN (test code = 2783959018) 17 mg/dL 7-23 GLUCOSE (test code = 5013241467) 258 mg/dL 70-110 H CREATININE (test code = 2160-0) 0.93 mg/dL 0.50-1.04 TOTAL BILI (test code = 5331377817) 0.2 mg/dL 0.1-1.1 CALCIUM (test code = 9979421356) 9.0 mg/dL 8.6-10.6 T PROTEIN (test code = 1484344691) 7.2 g/dL 6.3-8.2 ALBUMIN (test code = 6402156597) 3.6 g/dL 3.5-5.0 ALK PHOS (test code = 8070345278) 124 U/L 34-122 H ALTv (test code = 1742-6) 32 U/L 5-35 AST(SGOT) (test code = 9706846513) 29 U/L 13-40 eGFR (test code = 37637-8) 87.1 mL/min/1.73m2 CKD-EPI eGFR (2020). Assuming creatinine has been stable day-to-day for at least three months, the eGFR indicates Category G2 (60 - 89 mL/min/1.73 m2) Lab Interpretation (test code = 15357-6) Abnormal [facility] WITH [id number] 19:10:25* Test Item Value Reference Range Interpretation [...] g/dL 31.6-35.1 L RDW-SD (test code = 80691-2) 40.6 fL 39.0-49.9 RDW-CV (test code = 788-0) 13.6 % 12.0-15.5 PLT (test code = 777-3) 427 166-358 H MPV (test code = 30144-8) 10.7 fL 9.5-12.9 NRBC/100 WBC (test code = 5845223241) 0.0 0.0-10.0 NRBC x10^3 (test code = 4202289321) See_Comment [Automated messa ge] The system which generated this result transmitted reference range: 10*3/?L. The reference range was not used to interpret this result as normal/abnormal. GRAN MAT (NEUT) % (test code = 770-8) 66.9 % IMM GRAN % (test code = 5128113370) 0.20 % LYMPH % (test code = 736-9) 25.6 % MONO % (test code = 5905-5) 5.1 % EOS % (test code = 713-8) 1.6 % BASO % (test code = 706-2) 0.6 % GRAN MAT x10^3(ANC) (test code = 2324883162) 3.40 10*3/uL 1.88-7.09 IMM GRAN x10^3 (test code = 6828956343) 0.00-0.06 LYMPH x10^3 (test code = 731-0) 1.30 10*3/uL 1.32-3.29 L MONO x10^3 (test code = 742-7) 0.26 10*3/uL 0.33-0.92 L EOS x10^3 (test code = 711-2) 0.08 10*3/uL 0.03-0.39 BASO x10^3 (test code = 704-7) 0.03 10*3/uL 0.01-0.07 Lab Interpretation (test code = 05871-9) [facility] [id number] 18:25:51HISTORY: Cough. TECHNIQUE: PA and lateral views of the chest are obtained. FINDINGS: No acute pneumonia detected. No pneumothorax or pleural effusionor pulmonary congestion. Cardiomediastinal contourappears normal. Mild midthoracic dextroscoliosis is noted. No compression fracture deformity seeninthe thoracic vertebral bodies. CONCLUSIONS: No signs of acute [facility]op[facility] disease. [facility] Lactic [id number] 18:19:18* Test Item Value Reference Range Interpretation Comme nts PH (test code = 0373950385) 7.31 7.32-7.42 L PCO2 CHARLEEN (test code = 4756771427) 37 41-51 L PO2 CHARLEEN (test code = 6089873430) 27 25-40 HCO3 CHARLEEN (test code = 5263278225) 18 24-28 L AC VBE(BEAKER) (test code = 1378333214) -7.5 mEq/L THB CHARLEEN (test code = 5188756525) 11.6 g/dL 12.0-16.0 L %O2HB CHARLEEN (test code = 3384184775) 51.5 % 52.0-63.0 L %COHB CHARLEEN (test code = 6674525508) 1.0 % 0.0-1.5 %METHB CHARLEEN (test code = 7137994272) 0.3 % 0.4-1.5 L VOL%O2 CHARLEEN (test code = 0620943965) 8.4 % 6.0-12.0 NA (test code = 4790104571) 137 mmol/L 135-145 K+ (test code = 7175721728) 3.7 mmol/L 3.5-5.0 AC CA IONZ (test code = 6405666991) 4.80 mg/dL 4.50-5.30 GLUCOSE (test code = 3768813065) 259 mg/dL 70-110 H LACTIC ACID (test code = 3719364162) 8.02 mmol/L 0.50-2.20 H Lab Interpretation (test cod e = 39946-4) Abnormal [facility] [id number] 18:13:00* Test Item Value Reference Range Interpretation Comme nts POCT PREG (test code = 1605) Negative On board controls acceptable with C Line (test code = 3574) Yes POCT PREG LOT # (test code = 3575) [id number] POCT PREG TEST DATE ( test code = 3575) [id number] Lab Interpretation (test cod e = 52992-5) Normal [facility] GLUCOSE (AUTOMATED)2024-01-04 17:31:00* Test Item Value Reference Range Interpretation Comme nts POCT GLU (test code = 2693661689) 321 mg/dL 70-110 H Lab Interpretation (test cod e = 13396-4) Abnormal [facility] Metabolic Panel (NA, K, CL, CO2, GLUCOSE, BUN, CREATININE, CA)2024-01-01 05:33:58* Test Item Value Reference Range Interpretation Comme nts NA (test code = 2966021127) 131 mmol/L 135-145 L K (test code = 5876917720) 4.5 mmol/L 3.5-5.0 CL (test code = 8258409787) 99 mmol/L 98-108 CO2 TOTAL (test code = 1784729106) 25 mmol/L 23-31 AGAP (test code = 4104229131) 7 2-16 BUN (test code = 0645533645) 18 mg/dL 7-23 GLUCOSE (test code = 4758717252) 421 mg/dL 70-110 H CREATININE (test code = 2160-0) 1.05 mg/dL 0.50-1.04 H CALCIUM (test code = 1366334334) 8.3 mg/dL 8.6-10.6 L eGFR (test code = 61618-3) 75.3 mL/min/1.73m2 CKD-EPI eGFR (2020). Assuming creatinine has been stable day-to-day for at least three months, the eGFR indicates Category G2 (60 - 89 mL/min/1.73 m2) Lab Interpretation (test code = 77166-9) Abnormal [facility] GLUCOSE(AGE >30DAYS)2024-01-01 05:10:00* Test Item Value Reference Range Interpretation Comme nts POCT Glu (age>30days) (test code = 3342) 393 mg/dL 70-110 A Lab Interpretation (test cod e = 84294-2) Abnormal [facility] GLUCOSE (AUTOMATED)2024-01-01 05:09:45* Test Item Value Reference Range Interpretation Comme nts POCT GLU (test code = 4390119700) 393 mg/dL 70-110 H Lab Interpretation (test cod e = 66377-6) Abnormal [facility] GLUCOSE (AUTOMATED)2024-01-01 03:39:15* Test Item Value Reference Range Interpretation Comme nts POCT GLU (test code = 6713162998) 414 mg/dL 70-110 H Lab Interpretation (test cod e = 49485-5) Abnormal [facility] GLUCOSE(AGE >30DAYS)2024-01-01 03:39:00* Test Item Value Reference Range Interpretation Comme nts POCT Glu (age>30days) (test code = 3342) 414 mg/dL 70-110 A Lab Interpretation (test cod e = 49382-8) [facility] >30DAYS[facility]2023-09-22 07:27:00* Test Item Value Reference Range Interpretation Comme nts POCT Glu (age>30days) (test code = 3342) 381 mg/dL 70-110 A Lab Interpretation (test cod e = 79969-9) Abnormal [facility] GLUCOSE (AUTOMATED)2023-09-22 07:21:21* Test Item Value Reference Range Interpretation Comme nts POCT GLU (test code = 5219493310) 381 mg/dL 70-110 H Lab Interpretation (test cod e = 69886-2) [facility]normal [facility] FIRST TRIMESTER LESS THAN 14 [id number] 04:12:02Ordering physician: PEDRO LUIS FLORES INDICATION: Vaginal [...] normal color Dopplerflow in the righ t ovary.[facility] 2023-08-22 04:03:00* Test Item Value Reference Range Interpretation Comme nts ABO & RH (test code = 20) A Positive [facility] >30DAYS[facility]2023-08-22 04:02:00* Test Item Value Reference Range Interpretation Comme nts POCT Glu (age>30days) (test code = 3342) 214 mg/dL 70-110 A Lab Interpretation (test cod e = 79411-0) [facility]normal [facility] BETA HCG [id number] 03:07:49* Test Item Value Reference Range Interpretation Comme nts BETA HCG (test code = 2276966012) 8802.00 See_Comment [Automated [employer]] The system which generated this result transmitted reference range: Non- female and male patients: <5 mIU/mL. The reference range was not used to interpret this result as normal/abnormal. CALVNI (test code = CALVIN) Gestational Age ?Range (mIU/mL) 1-10 ?Weeks ?87-86676362-24 Weeks ?07316-11306573-35 Weeks ?8689-49220500-22 Weeks ?1531-642336 Biotin has been reported to cause a negative bias, interpret results relative to patient's use of biotin. [facility]. METABOLIC PANEL (44595)2023-08-22 02:58:56* Test Item Value Reference Range Interpretation Comme nts NA (test code = 0333929172) 129 mmol/L 135-145 L K (test code = 8453903714) 3.8 mmol/L 3.5-5.0 CL (test code = 1958295008) 97 mmol/L 98-108 L CO2 TOTAL (test code = 9494459094) 22 mmol/L 23-31 L AGAP (test code = 1855070877) 10 2-16 BUN (test code = 1087487759) 17 mg/dL 7-23 GLUCOSE (test code = 4508674514) 533 mg/dL 70-110 HH CREATININE (test code = 2160-0) 0.88 mg/dL 0.50-1.04 TOTAL BILI (test code = 5651825823) 0.5 mg/dL 0.1-1.1 CALCIUM (test code = 0584896769) 8.7 mg/dL 8.6-10.6 T PROTEIN (test code = 1104453716) 7.0 g/dL 6.3-8.2 ALBUMIN (test code = 1979114626) 3.4 g/dL 3.5-5.0 L ALK PHOS (test code = 7897735922) 150 U/L 34-122 H ALTv (test code = 1742-6) 15 U/L 5-35 AST(SGOT) (test code = 5635803893) 26 U/L 13-40 eGFR (test code = 09367-1) 93.7 mL/min/1.73m2 CKD-EPI eGFR (2020). Assuming creatinine has been stable day-to-day for at least three months, the eGFR indicates Category G1 (>= 90 mL/min/1.73 m2) Lab Interpretation (test code = 51569-0) Abnormal [facility] WITH [id number] 02:26:03* Test Item Value Reference Range Interpretation [...] 33.6 g/dL 31.6-35.1 RDW-SD (test code = 43611-6) 36.6 fL 39.0-49.9 L RDW-CV (test code = 788-0) 11.6 % 12.0-15.5 L PLT (test code = 777-3) 435 166-358 H MPV (test code = 26945-4) 9.8 fL 9.5-12.9 NRBC/100 WBC (test code = 1644069488) 0.0 0.0-10.0 NRBC x10^3 (test code = 7532453998) See_Comment [Automated messa ge] The system which generated this result transmitted reference range: 10*3/?L. The reference range was not used to interpret this result as normal/abnormal. GRAN MAT (NEUT) % (test code = 770-8) 60.4 % IMM GRAN % (test code = 8537032334) 0.40 % LYMPH % (test code = 736-9) 33.2 % MONO % (test code = 5905-5) 4.0 % EOS % (test code = 713-8) 1.5 % BASO % (test code = 706-2) 0.5 % GRAN MAT x10^3(ANC) (test code = 1660786818) 4.56 10*3/uL 1.88-7.09 IMM GRAN x10^3 (test code = 1949970687) 0.03 10*3/uL 0.00-0.06 LYMPH x10^3 (test code = 731-0) 2.50 10*3/uL 1.32-3.29 MONO x10^3 (test code = 742-7) 0.30 10*3/uL 0.33-0.92 L EOS x10^3 (test code = 711-2) 0.11 10*3/uL 0.03-0.39 BASO x10^3 (test code = 704-7) 0.04 10*3/uL 0.01-0.07 Lab Interpretation (test code = 52140-1) [facility] - ONCE [id number] 02:10:00* Test Item Value Reference Range Interpretation Comme nts ABO & RH (test code = 20) A POSITIVE IAT (test code = 1185) Negative [facility] (NA, K, CL, CO2, GLUCOSE, BUN, CREATININE, CA)2023-08-11 02:40:29* Test Item Value Reference Range Interpretation Comme nts NA (test code = 8797356342) 131 mmol/L 135-145 L K (test code = 6906009974) 3.8 mmol/L 3.5-5.0 CL (test code = 2013686971) 97 mmol/L 98-108 L CO2 TOTAL (test code = 8373701160) 27 mmol/L 23-31 AGAP (test code = 0620067465) 7 2-16 BUN (test code = 8723755788) 14 mg/dL 7-23 GLUCOSE (test code = 7114729335) 258 mg/dL 70-110 H CREATININE (test code = 2160-0) 0.78 mg/dL 0.50-1.04 CALCIUM (test code = 7569518243) 8.8 mg/dL 8.6-10.6 eGFR (test code = 47112-1) 108.3 mL/min/1.73m2 CKD-EPI eGFR (2020). Assuming creatinine has been stable day-to-day for at least three months, the eGFR indicates Category G1 (>= 90 mL/min/1.73 m2) Lab Interpretation (test code = 78598-8) Abnormal [facility] WITH [id number] 02:27:07* Test Item Value Reference Range Interpretation [...] 34.2 g/dL 31.6-35.1 RDW-SD (test code = 10144-5) 37.1 fL 39.0-49.9 L RDW-CV (test code = 788-0) 11.6 % 12.0-15.5 L PLT (test code = 777-3) 323 166-358 MPV (test code = 95871-9) 9.8 fL 9.5-12.9 NRBC/100 WBC (test code = 9670552331) 0.0 0.0-10.0 NRBC x10^3 (test code = 6016946867) See_Comment [Automated messa ge] The system which generated this result transmitted reference range: 10*3/?L. The reference range was not used to interpret this result as normal/abnormal. GRAN MAT (NEUT) % (test code = 770-8) 82.2 % IMM GRAN % (test code = 0252612329) 0.40 % LYMPH % (test code = 736-9) 12.1 % MONO % (test code = 5905-5) 5.1 % EOS % (test code = 713-8) 0.1 % BASO % (test code = 706-2) 0.1 % GRAN MAT x10^3(ANC) (test code = 8551685096) 8.39 10*3/uL 1.88-7.09 H IMM GRAN x10^3 (test code = 4822088270) 0.04 10*3/uL 0.00-0.06 LYMPH x10^3 (test code = 731-0) 1.23 10*3/uL 1.32-3.29 L MONO x10^3 (test code = 742-7) 0.52 10*3/uL 0.33-0.92 EOS x10^3 (test code = 711-2) 0.03-0.39 L BASO x10^3 (test code = 704-7) 0.01-0.07 Lab Interpretation (test code = 45098-9) [facility] [id number] 01:14:00* Test Item Value Reference Range Interpretation Comme nts POCT PREG (test code = 1605) Positive On board controls acceptable with C Line (test code = 3574) Yes Lab Interpretation (test cod e = 58952-4) Normal [facility] [id number] 04:07:00* Test Item Value Reference Range Interpretation Comme nts Glucose POC (test code = Glucose POC) 191 70-99 [facility] - [id number] 03:59:00* Test Item Value Reference Range Interpretation Comme nts Strep A NAAT (test code = Strep A NAAT) Positive *ABN*(01/02/23 9:59 PM) Coronavirus (COVID-19) BEN (test code = Coronavirus (COVID-19) BEN) Not Detected 3(01/02/23 9:59 PM) Influ A (test code = Influ A) Negative (01/02/23 9:59 PM) Influ B (test code = Influ B) Negative 1(01/02/23 9:59 PM) [id number] 03:59:00* Test Item Value Reference Range Interpretation Comme nts U Preg (test code = U Preg) Negative (01/02/23 9:59 PM) [facility] AND [id number] 03:59:00* Test Item Value Reference Range Interpretation [...] code = UA Urobilinogen) <=1.0 mg/dL 0.1-1.0 [facility] [id number] 03:59:00* Test Item Value Reference Range Interpretation Comme nts U Preg (test code = U Preg) Negative (01/02/23 9:59 PM) [facility] [id number] 03:04:00* Test Item Value Reference Range Interpretation [...] stable, no ataxia noted, GCS 15, A&Ox4. BOSS Ciara Moe RN [facility] 2024-01-04 11:25:52 Patient arrived ambulatory states she feels like she has strep throat, out of Toujeo medication r0llekg, only has short acting insulin. States she also feels like she needs a breathing treatment due to heavy breathing. Unlabored breathing in triage. BGL 321 in triage BOSS Angelina Mireles RN [facility] 2024-01-01 00:30:53 Pt given printed and verbal [...] in no apparent distress. Avelina Gregory RN [facility] 2023-12-31 22:03:21 Pt arrived ambulatory without assist. 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 [facility] 2023-09-22 02:14:03 Pt arrives ambulatory to ED reporting that she believes she has a yeast infection. She says she is having an "uncomfortable feeling" in her vaginal area. 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 Pt says she is still bleeding and is unsure if she has any discharge. [facility] Avelina Gregory RN [facility] 2023-09-22 02:11:00 [facility] Emergency Department Note Patient Name: Yuli Velarde [...] Allergen Reactions Morphine Anaphylaxis Motrin [Ibuprofen] Hives [place] Unknown - See comments Past Social History: [...] signed by: Nena Gregory DO 09/22/23 0225 [facility] 2023-08-22 00:18:07 Pt given printed and verbal discharge instructions regarding threatened , hyperglycemia, essential hypertension, subchorionic hemorrhage of placenta in first trimester, and encouraged hydration, Pt verbalized understanding of instructions, pt awake alert oriented, resp reg unlabored, skin w/d, color appropriate for race, moves all ext well,pt encouraged to follow up with pcp and [employer] Advised to seek medical attention for new/prolonged/worsening of symptoms. No adverse reaction to meds given in ER noted upon discharge PIV d'cd, dressing to site, catheter in tact. Awake, alert oriented, resp reg unlabored, skin w/d, pt leaving amb with steady gait, in no apparent distress, Stephanie Ash RN [facility] 2023-08-21 21:30:27 Provider notified of blood pressure T [facility] 2023-08-21 20:48:58 Summary: US US called out eta 1hr T Avelina Marroquin [facility] 2023-08-21 20:34:00 Patient arrived ambulatory via private car c/o of abdominal pain, vaginal bleeding, and pelvic pain. Patient states she is approximately 8 weeks. Patient stated "I feel open down there like I am dilated. I think I am having a miscarriage." Complains of brown blood but not enough to fill a pad. [id number] [facility] 2023-08-10 23:21:58 Pt given printed and verbal [...] in no apparent distress Alyson Cr RN [facility] 2023-08-10 20:03:59 Pt arrives ambulatory to ED c/o abscess to the right shoulder x2 days. Pt reports that she is more nauseous than normal, she is 7 weeks . Denies fever Avelina Gregory RN [facility] 2023-08-07 20:50:16 Pt dc'd home ambulatory. Pt v/u of dc instructions and follow up with OBGYN Nichol Plascencia RN [facility] 2023-08-07 19:54:19 CC: Pt thinks she is 6 weeks , LMP 06/26/23. She states that since morning she has blood when she wipes. Pt has not seen OBGYN yet for this , . NO abdominal cramping PMHx: DM1, HTN Awake, alert, oriented, resp reg unlabored, skin warm, color appropriate for race, moves all ext without difficulty, amb with steady gait [facility] 2023-08-07 19:51:00 [facility] Emergency Department Note Patient Name: Yuli Velarde Date of : 1995 27 year old female Treatment Room: [facility] [id number] Primary Care Physician: No primary care provider on file. 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 She has not followed up with [employer] as of yet. She did start vitamins. [...] underwear. She has not followed up with [employer] as of yet. She did start vitamins. [...] follow-up Johana Koenig DO Relationship: PCP - [facility] [address] [address] Electronically signed by: Nena Gregory DO 08/07/232028 [facility]
[2024-06-24 18:47] LABS: Influenza A Ag Negative; Influenza B Ag Negative; SARS-CoV-2 Antigen Rapid Res Negative (Negative)
--- NOTE | 2024-06-24 19:18 | RAD REPORT ---
EXAMINATION: TWO VIEW CHEST XR CLINICAL INDICATION: Congestion;Cough TECHNIQUE: 2 views of the chest was performed. COMPARISON: 01/21/2024 FINDINGS: The lungs are well inflated and clear. The heart is upper limit of normal in size. No displaced fract ures evident. Mild lumbar levoscoliosis. IMPRESSION: No acute or significant abnormalities.
--- NOTE | 2024-06-24 19:28 | ER ---
Nurse's Notes [facility] Name: Sharad Velarde Age: 28 yrs Sex: Female : 1995 Arrival Date: 06/24/2024 Time: 17:48 Bed IW1 Private MD: Diagnosis: Upper respiratory tract hypersensitivity reaction, site unspecified Presentation: 06/24 18:15 Chief complaint: Patient states: cough, sinus congestion for about a month. States her me1 R ear "feels wet". Coronavirus screen: Vaccine status: Patient reports receiving the 2nd dose of the covid vaccine. Ebola Screen: No symptoms or risks identified at this time. Initial Sepsis Screen: Does the patient meet any 2 criteria? HR > 90 bpm. Does the patient have a suspected source of infection? No. Patient's initial sepsis screen is negative. Risk Assessment: Do you want to hurt yourself or someone else? Patient reports no desire to harm self or others. Onset of symptoms is unknown. 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 - Infectious Disease History:: Denies. - Social history:: Smoking status: Patient denies any tobacco usage or history of. Screenin:12 [facility] ED Fall Risk Assessment (Adult) History of falling in the last 3 months, ha1 including since admission No falls in past 3 months (0 pts) Confusion or Disorientation No (0 pts) Intoxicated or Sedated No (0 pts) Impaired Gait No (0 pts) Mobility Assist Device Used No (0 pt) Altered Elimination No (0 pt) Score/Fall Risk Level 0 - 2 = Low Risk Oriented to surroundings, Maintained a safe environment, Hourly rounding (assess needs \\T\\ fall precautionary measures) done. Abuse screen: Denies threats or abuse. Denies injuries from another. Nutritional screening: No deficits noted. Tuberculosis screening: No symptoms or risk factors identified. Assessment: 20:00 Reassessment: Patient and/or family updated on plan of care and expected duration. Pain ha1 level reassessed. Patient is alert, oriented x 3, equal unlabored respirations, skin warm/dry/pink. Patient states symptoms have improved. Pain: Denies pain. Cardiovascular: Patient's skin is warm and dry. Respiratory: Airway is patent Breath sounds are clear bilaterally. Vital Signs: 18:15 BP 129 / 91; Pulse 109; Resp 17; Temp 98.4; Pulse Ox 100% ; Weight 65.77 kg; Height 5 me1 ft. 5 in. ; Pain 7/10; 19:29 BP 124 / 86; Pulse 89; Resp 18; Temp 98.2; Pulse Ox 99% ; dr5 18:15 Body Mass Index 24.13 (65.77 kg, 165.1 cm) me1 18:15 Pain Scale: [place] [facility] [place] [place] Course: 17:55 Patient arrived in ED. cj3 17:59 Franklyn Lozano FNP-C is [facility]. [facility] 17:59 Calvin Becerra MD is Attending Physician. dr5 18:16 Triage completed. me1 18:17 Arm band placed on Patient placed in waiting room. me1 18:54 Chest Pa And Lat (2 Views) XRAY In Process Unspecified. EDMS 19:00 Patient has correct armband on for positive identification. Bed in low position. Call ha1 light in reach. Side rails up X 1. Adult w/ patient. Administered Medications: No medications were administered Medication: 19:00 VIS not applicable for this client. ha1 Outcome: 19:28 Discharge ordered by . dr5 20:13 Discharged to home ambulatory, ha1 20:13 Condition: stable 20:13 Discharge instructions given to patient, Instructed on discharge instructions, follow up and referral plans. medication usage, Demonstrated understanding of instructions, follow-up care, medications, Prescriptions given X 3, 20:14 Patient left the ED. ha1 Signatures: Dispatcher [employer] EDMS Heather Cornelius, RN RN ha1 Corin Chandler RN RN me1 Franklyn Lozano FNP-C ENROLLED AGENT-Cdr5 Mikayla Colby cj3
--- NOTE | 2024-06-24 19:28 | EDPHYS ---
Physician Documentation [facility] Name: Sharad Velarde Age: 28 yrs Sex: Female : 1995 Arrival Date: 06/24/2024 Time: 17:48 Bed IW1 Private MD: ED Physician Calvin Becerra HPI: 06/24 18:31 This 28 yrs old Black Female presents to ER via Ambulatory with complaints of Cough, dr5 Sinus Problem, Congestion. 18:31 The patient or guardian reports flu symptoms. Onset: The symptoms/episode dr5 began/occurred acutely, suddenly. Patient is a 28-year-old female with history of asthma, diabetes, hypertension coming in with cough and congestion for the past 4 weeks as well as right ear pain and drainage. Patient denies fever. Patient reports she has not been seen by urgent care and has not taken any medications yet.. 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 - Infectious Disease History:: Denies. - Social history:: Smoking status: Patient denies any tobacco usage or history of. ROS: 18:31 Constitutional: as per hpi dr5 Exam: 18:31 Constitutional: This is a well developed, well nourished patient who is awake, alert, dr5 and in no acute distress. Head/Face: Normocephalic, atraumatic. Neck: Trachea midline, no thyromegaly or masses palpated, and no cervical lymphadenopathy. Supple, full range of motion without nuchal rigidity, or vertebral point tenderness. No Meningismus. Chest/axilla: Normal chest wall appearance and motion. Nontender with no deformity. No lesions are appreciated. Cardiovascular: Regular rate and rhythm with a normal S1 and S2. Normal PMI, no JVD. No pulse deficits. Respiratory: Lungs have equal breath sounds bilaterally, clear to auscultation. No rales, rhonchi or wheezes noted. No increased work of breathing, no retractions or nasal flaring. Back: No spinal tenderness. No costovertebral tenderness. Full range of motion. Skin: Warm, dry with normal turgor. Normal color with no rashes, no lesions, and no evidence of cellulitis. MS/ Extremity: Pulses equal, no cyanosis. Neurovascular intact. Full, normal range of motion. 18:31 ENT: Ear canal(s): purulent discharge, that is minimal, in the right canal, swelling, that is minimal, of the right canal, Vital Signs: 18:15 BP 129 / 91; Pulse 109; Resp 17; Temp 98.4; Pulse Ox 100% ; Weight 65.77 kg; Height 5 me1 ft. 5 in. ; Pain 7/10; 19:29 BP 124 / 86; Pulse 89; Resp 18; Temp 98.2; Pulse Ox 99% ; dr5 18:15 Body Mass Index 24.13 (65.77 kg, 165.1 cm) me1 18:15 Pain Scale: Adult me1 MDM: 18:06 Medical Screening Exam initiated dr5 19:29 Differential Diagnosis: Obstructed Airway Bronchitis Influenza Upper Respiratory dr5 Infection. Data reviewed: vital signs, nurses notes. I considered the following discharge prescriptions or medication management in the emergency department. Care significantly affected by the following chronic conditions: Diabetes, Asthma. Care significantly affected by the following Social Determinants of Health: Poor access to healthcare and/or lack of insurance, Poor access to transportation, Problems related to employment. Counseling: I had a detailed discussion with the patient and/or guardian regarding the historical points, exam findings, and any diagnostic results supporting the discharge/admit diagnosis, the presence of at least one elevated blood pressure reading (>120/80) during this emergency department visit, lab results, the need for outpatient follow up, for definitive care, a family practitioner, to return to the emergency department if symptoms worsen or persist or if there are any questions or concerns that arise at home. ED course: Patient strep, COVID, flu, chest x-ray was normal. Will give antibiotic drops for right sided otitis externa, steroid pack and cough medications to help with symptoms. Recommended increased hydration and alternate Tylenol Motrin as needed for pain and fever.. ED course: All questions answered and patient is agreeable to plan. Strict ER precautions given.. 06/24 18:22 Order name: Group A Streptococcus Rapid; Complete Time: 18:48 dr5 06/24 18:22 Order name: COVID-19 Ag + Flu A+B Ag; Complete Time: 18:48 dr5 06/24 18:49 Order name: Throat Culture EDMS 06/24 18:22 Order name: Chest Pa And Lat (2 Views) XRAY; Complete Time: 19:27 dr5 Administered Medications: No medications were administered Disposition Summary: 06/24/24 19:28 Discharge Ordered Notes: Location: Home dr5 Condition: Stable dr5 Diagnosis - Upper respiratory tract hypersensitivity reaction, site unspecified dr5 Followup: dr5 - With: Emergency Department - When: As needed - Reason: Worsening of condition Followup: dr5 - With: Private Physician - When: 1 - 2 days - Reason: Recheck today's complaints, Continuance of care, Re-evaluation by your physician Discharge Instructions: - Discharge Summary Sheet dr5 - Otitis Externa dr5 - Upper Respiratory Infection, Adult dr5 Forms: - Work release form dr5 - Medication Reconciliation Form dr5 - Antibiotic Education dr5 - Patient Portal Instructions dr5 - Leadership Thank You Letter dr5 Prescriptions: - Bromfed DM 2-30-10 mg/5 mL Oral syrup - administer 5 milliliter ORAL route every 4 to 6 hours As needed as needed for dr5 sinus symptoms; 240 milliliter; Refills: 0, Product Selection Permitted - Cipro HC 0.2-1 % Otic drops, suspension - instill 10 drop OTIC route daily for 7 days; 70 milliliter; Refills: 0, Product dr5 Selection Permitted - Medrol ([place]ong) 4 mg Oral Tablets, Dose Pack - take 1 tablet ORAL route as directed - follow package instructions; 1 packet; dr5 Refills: 0, Product Selection Permitted Signatures: Dispatcher [employer] Corin Silva, RN RN me1 Franklyn Lozano, WEBSPHERE PORTAL DEVELOPER-C WEBSPHERE PORTAL DEVELOPER-Cdr5
[2024-06-26 08:51] VITALS: BP 124/86; TEMP 98.2; O2SAT 99
== END 2024-06-24 20:14 | disposition home or self-care (01) ==
LOC: ER 17:48
DX: J39.3 Upper respiratory tract hypersensitivity reaction, site unspecified (principal); Z11.52 Encounter for screening for COVID-19
CPT/HCPCS: 36415; 71046; 87070; 87428; 99283